=== PATIENT | male | born 1930 | race Caucasian/White ===

== ENCOUNTER 2016-06-16 05:10 | Emergency (ER) | payer MEDICARE, BC ==
[~2016-06-16] VITALS: Ht 180.3 cm; Wt 84.8 kg
[~2016-06-16 05:10] MED LIST: ALFU10TA3 PO; ASPI-482 PO; CALC1TAB PO; CARV6.252 PO; CLOP75TA PO; CRESTOR5 MG PO; DOCU100C5 PO; DOXY100C2 PO; FINA5TAB4 PO; FLUO20CA8 PO; GLUC100018 PO; HYDR-2161 PO; HYDR-2666 PO; LISI2.5T PO; LORA10TA3 PO; MULT-245 PO; NITR0.4T SL; PANT40TA5 PO; RANI150C PO; VIT500LI PO; WARF5TAB PO
[2016-06-16] MEDS ORDERED: DIPHTH,PERTUSS(ACELL),TET TOX 0.5 ML DISP.SYRIN. VAX IM ONE (05:30)
--- NOTE | 2016-06-16 05:57 | RAD ---
PROCEDURE Head and cervical spine CT without contrast. HISTORY Trauma. TECHNIQUE Computed tomographic images of the head and cervical spine were obtained without contrast. One or more of the following individualized dose reduction techniques were utilized for this examination: 1. Automated exposure control; 2. Adjustment of the mA and/or kV according to patient size; 3. Use of iterative reconstruction technique. COMPARISON 05/09/2016 FINDINGS Head: There is no evidence of acute or subacute hemorrhage. There is no mass effect or midline shift. There is no hydrocephalus. There is a stable infarct within the left thalamus. There are extensive areas of hypodensity throughout the cerebral white matter, likely due to chronic small vessel disease. There is focal encephalomalacia cerebellar hemispheres likely due to chronic infarction. There is vertebral and internal carotid artery atherosclerosis. No orbital lesion is seen. There is mild paranasal sinus mucosal thickening. The mastoid air cells are clear. There is ossification at the left vertex, without a clear associated mass to suggest a meningioma. This is stable in appearance. Cervical spine: There is cervical kyphosis. There is slight listhesis at multiple levels. There is degenerative endplate remodeling with disc space narrowing, osteophytosis and vacuum phenomenon at C3 through C7. No displaced fracture is seen. There are few hemangiomas. At C2-C3, there is a disc bulge and endplate remodeling. There is moderate left greater than right facet arthropathy. There is minimal left foraminal stenosis. At C3-C4, there are left greater than right posterior lateral disc osteophyte complexes superimposed on a disc bulge and endplate osteophytosis. There is mild facet arthropathy. There is uncovertebral arthropathy. There is moderate right and severe left foraminal stenosis. There is mild central canal stenosis. At C4-C5, there is a diffuse disc bulge and endplate osteophytosis. There is mild facet arthropathy. There is uncovertebral arthropathy. There is severe bilateral foraminal stenosis. There is moderate to severe central canal stenosis measuring 6.3 mm in anterior-posterior dimension. At C5-C6, there is a disc bulge with endplate osteophytosis. There is moderate facet arthropathy. There is uncovertebral arthropathy. There is moderate right and severe left foraminal stenosis. There is moderate central canal stenosis. At C6-C7, there is a disc bulge and endplate osteophytosis. There is mild right facet arthropathy. There is uncovertebral arthropathy. There is severe bilateral foraminal stenosis. There is moderate central canal stenosis. IMPRESSION 1. No acute intracranial finding or evidence of acute cervical spine trauma. 2. Scattered areas of hypodensity throughout the cerebral white matter, likely due to chronic small vessel disease. 3. 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 4. Multilevel degenerative change within the cervical spine, resulting in significant foraminal and central canal stenosis at the aforementioned levels. 5. 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 The imaging appearance does not favor an ossified meningioma. Electronically signed by: Sandra Dela Cruz (Jun 16, 2016 05:55:13)
--- NOTE | 2016-06-16 06:15 | PHYS DOC ---
Past Medical History Past Medical History: Arthritis, Dementia, Diabetes-Type II, High Cholesterol, Heart Disease, [place], Other Additional Past Medical Histor: ulcerative colitis, [place] 2004 Past Surgical History: Appendectomy, Pacemaker, Tonsillectomy, Other Additional Past Surgical Histo: Cardiac stents x 4, COLOSTOMY Alcohol Use: None Drug Use: None Adult General Chief Complaint Chief Complaint: MECHANICAL FALL HPI HPI 86-year-old male presenting to the emergency Department after sustaining a mechanical fall with head injury including abrasion to his head and abrasion to his left knee. He has mild nonradiating intermittent pain in his head. He denies a pain in the lower extremities. Review of Systems Review of Systems Constitutional: Denies fever or chills Eyes: Denies change in visual acuity, redness, or eye pain [] HENT: Denies nasal congestion or sore throat [] Respiratory: Denies cough or shortness of breath Cardiovascular: No additional information not addressed in HPI [] GI: Denies abdominal pain, nausea, vomiting, bloody stools or diarrhea : Denies dysuria or hematuria [] Musculoskeletal: Denies back pain or joint pain Integument: Denies rash or skin lesions [] Neurologic: Denies focal weakness or sensory changes [] Endocrine: Denies polyuria or polydipsia [] Current Medications Current Medications Current Medications Medications (Trade) Dose Ordered Sig/Helen Start Time Stop Time Status Last Admin Dose Admin Diphtheria/ Tetanus/Acell Pertussis (Boostrix) 0.5 ml ONCE ONCE 06/16/16 05:30 06/16/16 05:31 DC 06/16/16 06:02 0.5 ML Allergies Allergies Allergies Coded Allergies Type Severity Reaction Last Updated Verified Sulfa (Sulfonamide Antibiotics) Allergy Intermediate 10/31/14 Yes mesalamine Allergy Intermediate 05/17/16 Yes bacitracin Adverse Reaction Intermediate Itching 05/17/16 Yes neomycin Adverse Reaction Intermediate Itching 05/17/16 Yes polymyxin B Adverse Reaction Intermediate Itching 05/17/16 Yes Physical Exam Physical Exam Constitutional: Well developed, well nourished, no acute distress, non-toxic appearance. [] HENT: Normocephalic, Abrasion to the head, bilateral external ears normal, oropharynx moist, no oral exudates, nose normal. [] Eyes: PERRLA, EOMI, conjunctiva normal, no discharge. [] Neck: Normal range of motion, no tenderness, supple, no stridor. [] Cardiovascular:Heart rate regular rhythm, no murmur [] Lungs & Thorax: Bilateral breath sounds clear to auscultation [] Abdomen: Bowel sounds normal, soft, no tenderness, no masses, no pulsatile masses. [] Skin: Warm, dry, no erythema, no rash. [] Back: No tenderness, no CVA tenderness. [] Extremities: Abrasion to left lower extremity. Nontender passive range of motion of the left knee. Minimal swelling present. Patient is able to ambulate without difficulty. Otherwise extremities nontender with two second capillary Refill and normal motor sensory function. Neurologic: Alert and oriented X 3, normal motor function, normal sensory function, no focal deficits noted. [] Psychologic: Affect normal, judgement normal, mood normal. [] Current Patient Data Vital Signs Vital Signs Date Time Temp Pulse Resp B/P Pulse Ox O2 Delivery O2 Flow Rate FiO2 06/16/16 07:26 68 18 162/86 95 Room Air 06/16/16 05:10 97.7 97.7 EKG EKG [] Radiology/Procedures Radiology/Procedures [] Course & Med Decision Making Course & Med Decision Making Pertinent Labs and Imaging studies reviewed. (See chart for details) []86-year-old male presented the emergency department today with and embrace into his head and left knee after sustaining a mechanical fall. The remainder of the secondary survey was unremarkable. The patient's left knee was nontender with normal range of motion with a small abrasion. He was able to ambulate on it. Head and neck CT were unremarkable for acute pathology. The patient was then discharged home to follow up with PCP over the next 2-3 days. Dragon Disclaimer Dragon Disclaimer This electronic medical record was generated, in whole or in part, using a voice recognition dictation system. Departure Departure Impression: Primary Impression: Head trauma Disposition: 01 HOME, SELF-CARE Condition: STABLE Referrals: YORDAN SHANKS MD (PCP) Patient Instructions: Head Injury, Adult Additional Instructions: Thank you for allowing us to participate in your care today. Followup with your primary care physician in 3 days if your symptoms do not improve. If you do not have a primary care provider you can ask for a list of our primary care providers. Return to the emergency department you have any new or concerning findings. This should be evaluated by the primary care physician and any necessary consulting services for continued management within a few days after discharge. Return to emergency room if you have any new or concerning symptoms including but not limited to fever, chills, nausea, vomiting, intractable pain, any new rashes, chest pain, shortness of air, uncontrolled bleeding, difficulty breathing, and/or vision loss. BRYANT MARTIN MD Jun 16, 2016 06:15
[2016-06-16 07:26] VITALS: BP 162/86
== END 2016-06-16 09:08 | disposition home or self-care (01) ==
LOC: ER 05:10
DX: S00.81XA Abrasion of other part of head, initial encounter (principal); S80.212A Abrasion, left knee, initial encounter; E11.9 Type 2 diabetes mellitus without complications; E78.00 Pure hypercholesterolemia, unspecified; F03.90 Unspecified dementia, unspecified severity, without behavioral disturbance, psychotic disturbance, mood disturbance, and anxiety; I25.2 Old myocardial infarction; I11.9 Hypertensive heart disease without heart failure; M19.90 Unspecified osteoarthritis, unspecified site; Z88.1 Allergy status to other antibiotic agents; Z88.2 Allergy status to sulfonamides; Z88.8 Allergy status to other drugs, medicaments and biological substances; Z95.0 Presence of cardiac pacemaker; Z90.49 Acquired absence of other specified parts of digestive tract; Z95.5 Presence of coronary angioplasty implant and graft; Z93.3 Colostomy status; W19.XXXA Unspecified fall, initial encounter; Y93.89 Activity, other specified; Y92.89 Other specified places as the place of occurrence of the external cause; Y99.8 Other external cause status
CPT/HCPCS: 70450; 72125; 90471; 90715; 99284-25

== ENCOUNTER 2016-08-04 09:02 | Inpatient (IN) | payer MEDICARE, BC ==
[~2016-08-04] VITALS: Ht 182.9 cm; Wt 86.2 kg
--- NOTE | 2016-08-04 09:48 | RAD ---
Portable chest, 08/04/2016: History: Fall, chest pain Comparison is made to a study from 05/16/2016. There has been a previous median sternotomy. A left-sided transvenous pacemaker remains in place with 2 leads extending into the right heart. The heart is at the upper limits of normal in size. There is calcific plaquing and tortuosity of the thoracic aorta. The pulmonary vascularity is normal. There is minimal linear atelectasis and/or scarring in the lung bases. No pulmonary consolidation is seen. There is no evidence of pleural fluid. IMPRESSION: 1.Cardiomegaly and aortic atherosclerosis. 2. Mild bibasilar linear atelectasis and/or scarring.
[2016-08-04] MEDS: FENTANYL PF 100 MCG/2 ML VIAL. IV PRN ×3 (09:53→12:47)
[2016-08-04 09:56] LABS: BASO # 0.1 x10^3/uL (0.0-0.2); BASO % 1 % (0-3); EOS % 9 % (0-3); HEMATOCRIT 41.6 % (39.0-53.0); LYMPH % 21 % (24-48); MEAN CORPUSCULAR HEMOGLOBIN 33 pg (25-35); MEAN CORPUSCULAR HGB CONC 34 g/dL (31-37); MEAN CORPUSCULAR VOLUME 98 fL (79-100); MONO % 13 % (0-9); NEUT % 57 % (31-73); PLATELET COUNT 228 x10^3/uL (140-400); RED BLOOD COUNT 4.24 x10^6/uL (4.30-5.70); RED CELL DISTRIBUTION WIDTH 14.4 % (11.5-14.5); WHITE BLOOD COUNT 9.5 x10^3/uL (4.0-11.0)
[2016-08-04 10:01] LABS: CALCIUM 9.6 mg/dL (8.5-10.1); CREATININE 1.1 mg/dL (0.7-1.3); GFR 63.8; POTASSIUM 4.7 mmol/L (3.5-5.1)
[2016-08-04 10:06] LABS: ALBUMIN 3.2 g/dL (3.4-5.0); DIRECT BILIRUBIN 0.1 mg/dL (0.0-0.2); TOTAL BILIRUBIN 0.5 mg/dL (0.2-1.0); TOTAL PROTEIN 6.8 g/dL (6.4-8.2)
[2016-08-04 10:13] LABS: INR 1.1 (0.8-1.1); PROTHROMBIN TIME PATIENT 13.1 SEC (11.7-14.0)
--- NOTE | 2016-08-04 10:18 | PHYS DOC ---
Past Medical History Past Medical History: Arthritis, CAD, Dementia, Depression, GERD, High Cholesterol, Heart Disease, [place], Other Additional Past Medical Histor: ulcerative colitis, [place] 2005, BPH, INSOMNIA Past Surgical History: Appendectomy, Pacemaker, Tonsillectomy, Other Additional Past Surgical Histo: Cardiac stents x 4, COLOSTOMY Alcohol Use: None Drug Use: None Adult General Chief Complaint Chief Complaint: ABDOMINAL PAIN HPI HPI Patient is a 86 year old male who presents with right upper quadrant pain and right flank pain from assisted living facility. He has multiple falls recently and has incurred right flank pain and ecchymosis over the past week. Overnight, he has developed right upper quadrant abdominal pain that is intermittent, severe, crampy in nature. States it lasts seconds at a time. Pain is better when laying still. Pain is worse with movement, taking a deep breath, or clearing his throat. He denies fever or chills, nausea or vomiting, dyspnea, cough, palpitations, diaphoresis, orthopnea, diarrhea, dysuria, hematuria. He denies numbness, tingling, weakness, headache, neck pain, vision changes. Review of Systems Review of Systems Constitutional: Denies fever or chills [] Eyes: Denies change in visual acuity, redness, or eye pain [] HENT: Denies nasal congestion or sore throat [] Respiratory: Denies cough or shortness of breath [] Cardiovascular: No additional information not addressed in HPI [] GI: Denies nausea, vomiting, bloody stools or diarrhea [] : Denies dysuria or hematuria [] Musculoskeletal: Denies joint pain [] Integument: Denies rash or skin lesions [] Neurologic: Denies headache, focal weakness or sensory changes [] Endocrine: Denies polyuria or polydipsia [] Current Medications Current Medications Current Medications Medications (Trade) Dose Ordered Sig/Helen Start Time Stop Time Status Last Admin Dose Admin Fentanyl Citrate (Fentanyl 2ml Vial) 25 mcg PRN Q15MIN PRN 08/04/16 09:45 08/04/16 13:46 DC 08/04/16 12:47 25 MCG Info (Do NOT chart on this entry -- for MONITORING) 1 each PRN DAILY PRN 08/04/16 11:15 08/06/16 11:14 Iohexol (Omnipaque 300 Mg/ml) 75 ml 1X ONCE 08/04/16 11:00 08/04/16 11:02 DC 08/04/16 11:03 75 ML Allergies Allergies Allergies Coded Allergies Type Severity Reaction Last Updated Verified Sulfa (Sulfonamide Antibiotics) Allergy Intermediate 10/31/14 Yes mesalamine Allergy Intermediate 05/17/16 Yes pantoprazole Allergy Unknown 08/04/16 Yes bacitracin Adverse Reaction Intermediate Itching 05/17/16 Yes neomycin Adverse Reaction Intermediate Itching 05/17/16 Yes polymyxin B Adverse Reaction Intermediate Itching 05/17/16 Yes Physical Exam Physical Exam Constitutional: Well developed, well nourished, no acute distress, non-toxic appearance. [] HENT: Normocephalic, atraumatic, bilateral external ears normal, oropharynx moist, no oral exudates, nose normal. [] Eyes: PERRLA, EOMI. [] Neck: Normal range of motion, no tenderness, supple. [] Cardiovascular:Heart rate regular rhythm [] Lungs & Thorax: Bilateral breath sounds clear to auscultation [] Abdomen: Bowel sounds normal, soft, moderate right upper quadrant tenderness, no guarding or rebound, no pulsatile masses. [] Skin: Warm, dry, no erythema, no rash. [] Back: No midline spinal or paraspinal tenderness, no CVA tenderness. Has tenderness to right posterior lumbar lateral chest wall with surrounding ecchymosis. No rash otherwise [] Extremities: No tenderness, ROM intact, no edema. [] Neurologic: Alert and oriented X 3, normal motor function, normal sensory function, no focal deficits noted. [] Psychologic: Affect normal, judgement normal, mood normal. [] Current Patient Data Vital Signs Vital Signs Date Time Temp Pulse Resp B/P Pulse Ox O2 Delivery O2 Flow Rate FiO2 08/04/16 11:20 60 22 143/89 94 Room Air 08/04/16 09:18 98.0 98.0 Lab Values Laboratory Tests Test 08/04/16 09:10 08/04/16 10:04 White Blood Count 9.5x10^3/uL (4.0-11.0) Red Blood Count 4.24x10^6/uL (4.30-5.70) L Hemoglobin 14.0g/dL (13.0-17.5) Hematocrit 41.6% (39.0-53.0) Mean Corpuscular Volume 98fL (79-100) Mean Corpuscular Hemoglobin 33pg (25-35) Mean Corpuscular Hemoglobin Concent 34g/dL (31-37) Red Cell Distribution Width 14.4% (11.5-14.5) Platelet Count 228x10^3/uL (140-400) Neutrophils (%) (Auto) 57% (31-73) Lymphocytes (%) (Auto) 21% (24-48) L Monocytes (%) (Auto) 13% (0-9) H Eosinophils (%) (Auto) 9% (0-3) H Basophils (%) (Auto) 1% (0-3) Neutrophils # (Auto) 5.4x10^3uL (1.8-7.7) Lymphocytes # (Auto) 2.0x10^3/uL (1.0-4.8) Monocytes # (Auto) 1.2x10^3/uL (0.0-1.1) H Eosinophils # (Auto) 0.8x10^3/uL (0.0-0.7) H Basophils # (Auto) 0.1x10^3/uL (0.0-0.2) Prothrombin Time 13.1SEC (11.7-14.0) Prothrombin Time INR 1.1 (0.8-1.1) Sodium Level 143mmol/L (136-145) Potassium Level 4.7mmol/L (3.5-5.1) Chloride Level 106mmol/L (98-107) Carbon Dioxide Level 27mmol/L (21-32) Anion Gap 10 (6-14) Blood Urea Nitrogen 16mg/dL (8-26) Creatinine 1.1mg/dL (0.7-1.3) Estimated GFR (Cockcroft-Gault) 63.8 Glucose Level 85mg/dL (70-99) Calcium Level 9.6mg/dL (8.5-10.1) Total Bilirubin 0.5mg/dL (0.2-1.0) Direct Bilirubin 0.1mg/dL (0.0-0.2) Aspartate Amino Transferase (AST) 17U/L (15-37) Alanine Aminotransferase (ALT) 18U/L (16-63) Alkaline Phosphatase 64U/L (46-116) Creatine Kinase 59U/L (39-308) Troponin I Quantitative < 0.017ng/mL (0.000-0.055) Total Protein 6.8g/dL (6.4-8.2) Albumin 3.2g/dL (3.4-5.0) L Lipase 162U/L (73-393) Urine Collection Type Unknown Urine Color Yellow Urine Clarity Clear Urine pH 6.5 Urine Specific [place] 1.025 Urine Protein Negativemg/dL (NEG-TRACE) Urine Glucose (UA) Negativemg/dL (NEG) Urine Ketones (Stick) Negativemg/dL (NEG) Urine Blood Moderate (NEG) Urine Nitrite Negative (NEG) Urine Bilirubin Negative (NEG) Urine Urobilinogen Dipstick 0.2mg/dL (0.2 mg/dL) Urine Leukocyte Esterase Small (NEG) Urine RBC 6-10/HPF (0-2) Urine WBC 5-10/HPF (0-4) Urine Squamous Epithelial Cells Occ/LPF Urine Bacteria 0/HPF (0-FEW) Urine Hyaline Casts Occasional/HPF Urine Mucus Mod/LPF Laboratory Tests 08/04/16 09:10 Laboratory Tests 08/04/16 09:10 EKG EKG EKG as interpreted by me as atrial paced rhythm, rate 60, no ST-T changes, no ectopy Radiology/Procedures Radiology/Procedures Chest xray as interpreted by me with no acute cardiopulmonary disease process CT abdomen and pelvis with IV contrast IMPRESSION: 1. Chronic findings as described above. 2. No acute abdominal or pelvic abnormality is detected. DICTATED and SIGNED BY: LIDIA ALCARAZ MD DATE: 08/04/16 112 Course & Med Decision Making Course & Med Decision Making Pertinent Labs and Imaging studies reviewed. (See chart for details) Workup is unremarkable. Suspect pain and ecchymosis from unseen refracture or chest wall contusion. Still has significant pain with moving. Will admit for pain control and PT/OT evaluation for frequent falls. Discussed case with Dr. Burris, who will admit. Benedicton Disclaimer Benedicton Disclaimer This electronic medical record was generated, in whole or in part, using a voice recognition dictation system. Departure Departure Impression: Primary Impression: Chest pain Additional Impressions: Right upper quadrant abdominal pain Multiple falls Disposition: ADMITTED INPATIENT Condition: STABLE Referrals: LILLY URIBE MD (PCP) Problem Qualifiers Primary Impression: Chest pain Chest pain type: other chest pain Qualified Code: R07.89 - Other chest pain Maria Fernanda SLADE MD Aug 04, 2016 10:18
[2016-08-04 10:27] LABS: BILIRUBIN,URINE NEGATIVE (NEG); GLUCOSE,URINE NEGATIVE (NEG); NITRITE,URINE NEGATIVE (NEG); PH,URINE 6.5; PROTEIN,URINE NEGATIVE (NEG-TRACE); UROBILINOGEN,URINE 0.2 mg/dL (0.2 mg/dL)
[2016-08-04 10:35] LABS: BACTERIA,URINE 0 /HPF (0-FEW); SQUAMOUS EPITHELIAL CELL,UR OCC /LPF
[2016-08-04] MEDS ORDERED: IOHEXOL 300 MG/ML 75 ML VIAL IV ONE (11:00)
[2016-08-04] MEDS ORDERED: CONTRAST GIVEN MC PRN (11:15)
--- NOTE | 2016-08-04 11:35 | RAD ---
CT of the abdomen and pelvis with contrast, 08/04/2016: History: Right-sided pain, dementia, falls Multidetector CT imaging was performed following an IV bolus injection of iodinated contrast material. Comparison is made to a study from 03/31/2013. There is mild streaky atelectasis and/or scarring in the lung bases. The heart is enlarged. Coronary artery calcifications are present. No hepatic abnormality is seen. The gallbladder is unremarkable. The pancreas shows no abnormality. The spleen is of normal size. There is mild bilateral renal cortical scarring. The kidneys show no evidence of obstruction. There is moderate calcific plaquing of the abdominal aorta and its branches without evidence of aneurysm. The prostate gland is moderately enlarged. The colon has been resected with a colostomy or ileostomy in the right lower quadrant. The bowel loops are not dilated. No free air or free air is evident in the abdomen or pelvis. There is moderate multilevel degenerative change in the spine. 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 A mild L3 vertebral compression fracture has progressed since 2012. An acute fracture line is not visible. Severe degenerative changes are present at the right hip. IMPRESSION: 1. Chronic findings as described above. 2. No acute abdominal or pelvic abnormality is detected. PQRS Compliance Statement: One or more of the following individualized dose reduction techniques were utilized for this examination: 1. Automated exposure control 2. Adjustment of the mA and/or kV according to patient size 3. Use of iterative reconstruction technique
--- NOTE | 2016-08-04 13:44 | PDOC1 ---
History and Physical Date of Admission Date of Admission DATE: 08/04/16 TIME: 13:40 Identification/Chief Complaint Chief Complaint falls in [place] Source Source: Caregiver, Chart review, Patient History of Present Illness History of Present Illness 86 y.o male, rather very poor historian, no family at bedside,. Prev records show that he has hx of: (last admit) 1. Chest pain: Echocardiogram shows an ejection fraction of 30%. 38% on MPI 2. CAD: hx CABG 3. Cardiomyopathy known 4. Multiple falls with left cephalic parietal wound, syncopal vs arrhythmias 5. HTN: controlled 6. HLP 7. cognitive decline, w/ also depression, 8. abd pain APparently today, was sent by staff of [facility] of frequent falls. There were initial reports of rib pain but pt denies this to me. CTs can shows no acute finding, Pt cant tell me why he is here and denies falling. But he also cant tell what happened and who called EMS LAbs ok, CT abd ok - chronic changes Past Medical History Cardiovascular: CAD, HTN, Hyperlipidemia GI: GERD Psych: Anxiety Musculoskeletal: Osteoarthritis Renal/: Benign prostatic enlarg. Endocrine: Diabetes Past Surgical History Past Surgical History: Appendectomy, Total knee replacement, Tonsillectomy, Colectomy, Colon Resection Family History Family History: Family History Unknown Social History Smoke: No ALCOHOL: none Drugs: None Current Problem List Problem List Problems Medical Problems: (1) Chest pain Status: Acute (2) Chest wall pain Status: Acute (3) Fall Status: Acute (4) Multiple falls Status: Acute (5) Right upper quadrant abdominal pain Status: Acute Problems: Current Medications Current Medications Current Medications Fentanyl Citrate (Fentanyl 2ml Vial) 25 mcg PRN Q15MIN PRN IV PAIN GREATER THAN 3/10 Last administered on 08/04/16 12:47; Start 08/04/16 at 09:45; Stop at 09:44 Iohexol (Omnipaque 300 Mg/ml) 75 ml 1X ONCE IV Last administered on 08/04/16 11:03; Start 08/04/16 at 11:00; Stop 08/04/16 at 11:02; Status DC Info (Do NOT chart on this entry -- for MONITORING) 1 each PRN DAILY PRN MC SEE COMMENTS; Start 08/04/16 at 11:15; Stop 08/06/16 at 11:14 Active Scripts Active Hydrocodone-Apap 5-325 (Hydrocodone Bit/Acetaminophen) 1 Each Tablet 1 Tab PO PRN Q6HRS PRN Doxycycline Hyclate 100 Mg Capsule 1 Cap PO BID Reported Nitrostat (Nitroglycerin) 0.4 Mg Tab.subl 1 Tab SL UD Aspir 81 (Aspirin) 81 Mg Tablet.dr 1 Tab PO HS Glucosamine (Glucosamine Sulfate 2KCL) 1,000 Mg Tablet 1,000 Mg PO BID Docusate Sodium 100 Mg Capsule 1 Cap PO DAILY Vitamin C 500 Mg/15 Ml Liquid (Vit C/Ascorbate Ca/Ascorb Sod) 500 Mg/15 Ml Liquid 500 Mg PO BID Multi Vitamin Daily (Multivitamin) 1 Each Tablet 1 Each PO Caltrate 600 + D Tablet (Calcium Carbonate/Vitamin D3) 1 Each Tablet 1 Each PO BID Loratadine 10 Mg Tablet 1 Tab PO DAILY Hydrocodone-Apap 10-300 (Hydrocodone Bit/Acetaminophen) 1 Each Tablet 2 Tab PO PRN Q6HRS PRN Fluoxetine Hcl 20 Mg Capsule 1 Cap PO HS Ranitidine Hcl 150 Mg Capsule 1 Cap PO HS Pantoprazole Sodium 40 Mg Tablet.dr 20 Mg PO DAILY Lisinopril 2.5 Mg Tablet 1 Tab PO BID Finasteride 5 Mg Tablet 1 Tab PO DAILY Alfuzosin Hcl 10 Mg Tab.er.24h 1 Tab PO DAILY Crestor (Rosuvastatin Calcium) 5 Mg Tablet 5 Mg PO HS Clopidogrel (Clopidogrel Bisulfate) 75 Mg Tablet 1 Tab PO DAILY Carvedilol 6.25 Mg Tablet 1 Tab PO BID Allergies Allergies: Coded Allergies: Sulfa (Sulfonamide Antibiotics) (Verified Allergy, Intermediate, 10/31/14) mesalamine (Verified Allergy, Intermediate, 05/17/16) pantoprazole (Verified Allergy, Unknown, 08/04/16) bacitracin (Verified Adverse Reaction, Intermediate, Itching, 05/17/16) neomycin (Verified Adverse Reaction, Intermediate, Itching, 05/17/16) polymyxin B (Verified Adverse Reaction, Intermediate, Itching, 05/17/16) ROS Review of System limited, very poor historian Physical Exam General: Cooperative, No acute distress HEENT: Atraumatic, PERRLA, EOMI Lungs: Clear to auscultation Heart: S1S2, RRR, no thrills, no rubs, no murmurs Cardiovascular: S1, S2 Breasts: Normal Abdomen: Normal bowel sounds, Soft, No tenderness, No hepatosplenomegaly, No masses Male Genitals Exam: normal genitalia, normal prostate Rectal Exam: not examined PELVIC: Nml ext genitalia Extremities: No clubbing, No cyanosis, No edema, Normal pulses, No tenderness/ swelling Skin: No rashes, No breakdown, No significant lesion Psych/Mental Status: Mental status NL, Mood NL Vitals Vitals Vital Signs Date Time Temp Pulse Resp B/P Pulse Ox O2 Delivery O2 Flow Rate FiO2 08/04/16 13:19 60 20 158/96 94 Room Air 08/04/16 09:18 98.0 98.0 Labs Labs Laboratory Tests Test 08/04/16 09:10 08/04/16 10:04 White Blood Count 9.5x10^3/uL (4.0-11.0) Red Blood Count 4.24x10^6/uL (4.30-5.70) Hemoglobin 14.0g/dL (13.0-17.5) Hematocrit 41.6% (39.0-53.0) Mean Corpuscular Volume 98fL (79-100) Mean Corpuscular Hemoglobin 33pg (25-35) Mean Corpuscular Hemoglobin Concent 34g/dL (31-37) Red Cell Distribution Width 14.4% (11.5-14.5) Platelet Count 228x10^3/uL (140-400) Neutrophils (%) (Auto) 57% (31-73) Lymphocytes (%) (Auto) 21% (24-48) Monocytes (%) (Auto) 13% (0-9) Eosinophils (%) (Auto) 9% (0-3) Basophils (%) (Auto) 1% (0-3) Neutrophils # (Auto) 5.4x10^3uL (1.8-7.7) Lymphocytes # (Auto) 2.0x10^3/uL (1.0-4.8) Monocytes # (Auto) 1.2x10^3/uL (0.0-1.1) Eosinophils # (Auto) 0.8x10^3/uL (0.0-0.7) Basophils # (Auto) 0.1x10^3/uL (0.0-0.2) Prothrombin Time 13.1SEC (11.7-14.0) Prothromb Time International Ratio 1.1 (0.8-1.1) Sodium Level 143mmol/L (136-145) Potassium Level 4.7mmol/L (3.5-5.1) Chloride Level 106mmol/L (98-107) Carbon Dioxide Level 27mmol/L (21-32) Anion Gap 10 (6-14) Blood Urea Nitrogen 16mg/dL (8-26) Creatinine 1.1mg/dL (0.7-1.3) Estimated GFR (Cockcroft-Gault) 63.8 Glucose Level 85mg/dL (70-99) Calcium Level 9.6mg/dL (8.5-10.1) Total Bilirubin 0.5mg/dL (0.2-1.0) Direct Bilirubin 0.1mg/dL (0.0-0.2) Aspartate Amino Transf (AST/SGOT) 17U/L (15-37) Alanine Aminotransferase (ALT/SGPT) 18U/L (16-63) Alkaline Phosphatase 64U/L (46-116) Creatine Kinase 59U/L (39-308) Troponin I Quantitative < 0.017ng/mL (0.000-0.055) Total Protein 6.8g/dL (6.4-8.2) Albumin 3.2g/dL (3.4-5.0) Lipase 162U/L (73-393) Urine Collection Type Unknown Urine Color Yellow Urine Clarity Clear Urine pH 6.5 Urine Specific [place] 1.025 Urine Protein Negativemg/dL (NEG-TRACE) Urine Glucose (UA) Negativemg/dL (NEG) Urine Ketones (Stick) Negativemg/dL (NEG) Urine Blood Moderate (NEG) Urine Nitrite Negative (NEG) Urine Bilirubin Negative (NEG) Urine Urobilinogen Dipstick 0.2mg/dL (0.2 mg/dL) Urine Leukocyte Esterase Small (NEG) Urine RBC 6-10/HPF (0-2) Urine WBC 5-10/HPF (0-4) Urine Squamous Epithelial Cells Occ/LPF Urine Bacteria 0/HPF (0-FEW) Urine Hyaline Casts Occasional/HPF Urine Mucus Mod/LPF Laboratory Tests Test 08/04/16 09:10 08/04/16 10:04 White Blood Count 9.5x10^3/uL (4.0-11.0) Red Blood Count 4.24x10^6/uL (4.30-5.70) Hemoglobin 14.0g/dL (13.0-17.5) Hematocrit 41.6% (39.0-53.0) Mean Corpuscular Volume 98fL (79-100) Mean Corpuscular Hemoglobin 33pg (25-35) Mean Corpuscular Hemoglobin Concent 34g/dL (31-37) Red Cell Distribution Width 14.4% (11.5-14.5) Platelet Count 228x10^3/uL (140-400) Neutrophils (%) (Auto) 57% (31-73) Lymphocytes (%) (Auto) 21% (24-48) Monocytes (%) (Auto) 13% (0-9) Eosinophils (%) (Auto) 9% (0-3) Basophils (%) (Auto) 1% (0-3) Neutrophils # (Auto) 5.4x10^3uL (1.8-7.7) Lymphocytes # (Auto) 2.0x10^3/uL (1.0-4.8) Monocytes # (Auto) 1.2x10^3/uL (0.0-1.1) Eosinophils # (Auto) 0.8x10^3/uL (0.0-0.7) Basophils # (Auto) 0.1x10^3/uL (0.0-0.2) Prothrombin Time 13.1SEC (11.7-14.0) Prothromb Time International Ratio 1.1 (0.8-1.1) Sodium Level 143mmol/L (136-145) Potassium Level 4.7mmol/L (3.5-5.1) Chloride Level 106mmol/L (98-107) Carbon Dioxide Level 27mmol/L (21-32) Anion Gap 10 (6-14) Blood Urea Nitrogen 16mg/dL (8-26) Creatinine 1.1mg/dL (0.7-1.3) Estimated GFR (Cockcroft-Gault) 63.8 Glucose Level 85mg/dL (70-99) Calcium Level 9.6mg/dL (8.5-10.1) Total Bilirubin 0.5mg/dL (0.2-1.0) Direct Bilirubin 0.1mg/dL (0.0-0.2) Aspartate Amino Transf (AST/SGOT) 17U/L (15-37) Alanine Aminotransferase (ALT/SGPT) 18U/L (16-63) Alkaline Phosphatase 64U/L (46-116) Creatine Kinase 59U/L (39-308) Troponin I Quantitative < 0.017ng/mL (0.000-0.055) Total Protein 6.8g/dL (6.4-8.2) Albumin 3.2g/dL (3.4-5.0) Lipase 162U/L (73-393) Urine Collection Type Unknown Urine Color Yellow Urine Clarity Clear Urine pH 6.5 Urine Specific [place] 1.025 Urine Protein Negativemg/dL (NEG-TRACE) Urine Glucose (UA) Negativemg/dL (NEG) Urine Ketones (Stick) Negativemg/dL (NEG) Urine Blood Moderate (NEG) Urine Nitrite Negative (NEG) Urine Bilirubin Negative (NEG) Urine Urobilinogen Dipstick 0.2mg/dL (0.2 mg/dL) Urine Leukocyte Esterase Small (NEG) Urine RBC 6-10/HPF (0-2) Urine WBC 5-10/HPF (0-4) Urine Squamous Epithelial Cells Occ/LPF Urine Bacteria 0/HPF (0-FEW) Urine Hyaline Casts Occasional/HPF Urine Mucus Mod/LPF VTE Prophylaxis Ordered VTE Prophylaxis Devices: Yes VTE Pharmacological Prophylaxi: Yes Assessment/Plan Assessment/Plan 1. Frequent falls 2. FTT/gen weakness 3. Geriatric 4. MOd PCM 5. Hx CAD: hx CABG with EF 30% 6. Cardiomyopathy 7. HTN: 6. HLP 8. cognitive decline, w/ also depression, PLAn: Supportive meds PT/OT SW if needs SNU (higher level of care - doubt this though) Seen at ER Might need rib xrays pt complains of this with PT dw ER AARON Fleming MD Aug 04, 2016 13:44
[2016-08-04] MEDS ORDERED: MORPHINE SULFATE 2 MG/ML DISP.SYRIN. IV PRN (13:45)
[2016-08-04] MEDS ORDERED: ONDANSETRON PF 4 MG/2 ML VIAL. IV PRN (13:45)
[2016-08-04] MEDS ORDERED: ACETAMINOPHEN 500 MG TABLET PO PRN (13:45)
[2016-08-04] MEDS ORDERED: HYDROCODONE/APAP 5/325MG TABLET. PO PRN (14:00)
--- NOTE | 2016-08-04 14:18 | EKG ---
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
[2016-08-04 15:00] VITALS: BP 148/98
[2016-08-04 15:02] VITALS: BP 148/98
--- NOTE | 2016-08-04 15:49 | ACF ---
Admission Forms Criteria CARDIOLOGY GRG Clinical Indications for Admission to Inpatient Care ( Place 'X' for any and all applicable criteria): Hospital admission is needed for appropriate care of the patient because of ANY ONE of the following (1): [ ] I. Hemodynamic instability as indicated by ALL of the following (1)(2)(3) (4)(5) [ ]a) Vital signs or other findings not as expected for chronic patient condition or baseline [ ]b) Instability indicated by ANY ONE of the following: [ ]i) Hypotension [ ]ii) Symptomatic Tachycardia unresponsive to treatment ( e.g., analgesia, fluids, sedation as indicated) [ ]iii) Inadequate perfusion indicated by ANY ONE of the following: [ ] 1) Lactic acidosis (> 2 mmol/L) [ ] 2) New abnormal capillary refill (> 3 seconds) [ ] 3) Reduced urine output [ ] 4) New altered mental status [ ]iv) Orthostatic vital sign changes unresponsive to treatment (e.g., fluids) [ ]v) IV inotropic or vasopressor medication required to maintain adequate blood pressure or perfusion [ ] II. Severe heart failure as indicated by ANY ONE of the following(17)(18) [ ]a) Respiratory distress [ ]b) Hypotension [ ]c) Anasarca (refractory to outpatient therapy) [ ]d) Cardiac arrhythmias of immediate concern [ ]e) Myocardial ischemia [ ] III. Cardiac arrhythmias or findings of immediate concern indicated by ANY ONE of the following (19)(20): [ ] a) Heart rhythms that are inherently dangerous or unstable indicated by ANY ONE of the following (21)(22)(23): [ ] i) Resuscitated ventricular fibrillation or cardiac arrest [ ] ii) Ventricular escape rhythm [ ] iii) Sustained ventricular tachycardia (30 seconds or more of ventricular rhythm at greater than 100 beats per minute) [ ] iv) Nonsustained ventricular tachycardia and ANY ONE of the following: [ ] 1) Suspected cardiac ischemia as cause or consequence of ventricular tachycardia [ ] 2) In setting of acute myocarditis [ ] b) Unstable cardiac conduction defects indicated by ANY ONE of the following(23)(24)(25) [ ] i) Type II second-degree atrioventricular block [ ]ii) Third-degree atrioventricular block [ ]iii) New-onset left bundle branch block with suspected myocardial ischemia [ ]c) Any heart rhythm and ANY ONE of the following (21)(22)(26)(27) (28) [ ] i) Continuous long-term ECG monitoring needed (e.g., initiation of drug requiring monitoring for more than 24 hours) [ ] ii) Patient has automatic implanted cardioverter defibrillator that is repeatedly firing, malfunctioning, or in need of immediate adjustment of settings beyond the scope of ambulatory or observation care [ ]d) Heart rhythms of concern due to ANY ONE of the following: [ ] i) Hypotension [ ] ii) Respiratory distress [ ] iii) Association with other significant symptoms (e.g., bradycardia with syncope or ongoing dizziness, supraventricular tachycardia with chest pain (14)(15)(17) [ ] IV. Monitoring for cardiac contusion beyond the scope of observation care needed [A](30)(31)(32) [ ] V. Surgical or device complication (e.g., valve replacement complication , pacemaker dysfunction) (35)(41)(44)(45)(46) [ ] . Inpatient palliative care needed. [B](49) Also use Inpatient Palliative Care Criteria [ ] VII. Nonbacterial thrombotic (marantic) endocarditis (36)(43)(47)(48) [X] VIII. Cardiology condition, symptom, or finding for which emergency and observation care has failed or are not considered appropriate. [ ] IX. Acute valvular disease requiring inpatient as indicated by ANY ONE of the following (41) [ ]a) Acute valvular regurgitation (42) [ ]b) Noninfectious valvulitis (43) [ ]c) Obstructive valve thrombosis [ ]d) Paravalvular leak [ ]e) Other significant valvular disorder remaining after emergency or observation level of care (as appropriate) [ ]X. Pericardial disease requiring inpatient treatment as indicated by ANY ONE of the following (33)(34)(35)(36)(37) [ ]a) Suspected tamponade (38)(39)(40) [ ]b) Hemopericardium [ ]c) Other significant pericardial disorder remaining after emergency or observation level of care (as appropriate) [ ] XI. Cardiac ischemia beyond scope of emergency and observation care. [ ] XII. Hypertension requiring inpatient treatment as indicated by ANY ONE of the following (6)(7)(8) [ ]a) SBP greater than 220 mm Hg or DBP greater than 120 mmHg despite treatment [ ]b) SBP greater than 140 mm Hg or DBP greater than 100 mm Hg with evidence of acute end organ damage as indicated by ANY ONE of the following [ ] i) Encephalopathy [ ] ii) Acute renal failure as indicated by new onset of ANY ONE of the following (9)(10)(11)(12)(13) [ ]1) 3-fold rise in serum creatinine from baseline [ ]2) Serum creatinine greater than 4 mg/dL ( 354 micromoles/L) with acute rise greater than 0.5 mg/dL (44.2 micromoles/L) [ ]3) Reduction of more than 75% in estimated glomerular filtration rate from baseline [ ]4) Estimated glomerular filtration rate less than 35 mL/min/1.73m2 (0.59 mL/sec/1.73m2) in child up to 18 years of age [ ]5) Cessation of urine output indicated by ALL of the following [ ]A. Adequate volume status [ ]B. Inadequate urine output as indicated by ANY ONE of the following [ ]a. Urine output less than 0.3 mL/kg/hr for 24 hours [ ]b. Anuria (urine output less than 0.1 mL/kg/hr) for 12 hours [ ] iii) Aortic dissection [ ] iv) Myocardial Ischemia [ ] v) Left ventricular heart failure [ ]vi) Retinal Hemorrhage [ ]vii) Other significant finding [ ]c) Hypertension in child requiring inpatient treatment as indicated by ALL of the following(14)(15)(16) [ ] i) Outpatient treatment not effective, not available, or not appropriate [ ]ii) SBP or DBP greater than 95th percentile for age [ ]iii) Evidence of acute end organ damage as indicated by ANY ONE of the following [ ]1) Altered mental status [ ]2) Acute renal failure as indicated by new onset of ANY ONE of the following(9)(10)(11)(12)(13) [ ]A. 3-fold rise in serum creatinine from baseline [ ]B. Serum creatinine greater than 4 mg/dL (354 micromoles/L) with acute rise greater than 0.5 mg/dL (44.2 micromoles/L) [ ]C. Reduction of more than 75% in estimated glomerular filtration rate from baseline [ ]D. Estimated glomerular filtration rate less than 35 mL/min/1.73m2 (0.59 mL/sec/1.73m2) in child up to 18 years of age [ ]E. Cessation of urine output indicated by ALL of the following [ ]a. Adequate volume status [ ]b. Inadequate urine output as indicated by ANY ONE of the following [ ]i) Urine output less than 0.3 mL/kg/hr for 24 hours [ ]ii) Anuria ( urine output less than 0.1 mL/kg/hr) for 12 hours [ ]3) Severe headache [ ]4) Visual disturbance [ ]5) Retinal hemorrhage [ ]6) Other significant finding [ ]XIII. Complications of transplanted heart indicated by ANY ONE of the following(61): [ ]a) Acute graft rejection requiring inpatient management (eg, intravenous immunosuppression)(62)(63) [ ]b) Acute graft heart failure indicated by ANY ONE of the following(64): [ ]i) Hemodynamic instability [ ]ii) Cardiac arrhythmias of immediate concern [ ]iii) Pulmonary edema that is very severe (eg, mechanical ventilation needed, imminent or likely, need for 100% oxygen to keep oxygen saturation above 90%) [ ]iv) Pulmonary edema that is persistent as indicated by ALL of the following: [ ]1) New need for oxygen therapy to keep oxygen saturation above 90% (or increased FiO2 need from baseline) [ ]2) Has not improved sufficiently with emergency department or observation care IV diuretics or other heart failure treatments[E] [ ]v) Altered mental status that is severe or persistent [ ]vi) Increased creatinine (new on laboratory test) with reduction of more than 50% in estimated glomerular filtration rate from baseline [ ]vii) Progressively (ongoing) rising creatinine (known from past laboratory test) with reduction of more than 25% in estimated glomerular filtration rate from baseline [ ]viii) Acute renal failure [ ]ix) Acute peripheral ischemia (eg, examination shows pulseless, cool, mottled, or cyanotic extremity) [ ]x) Pulmonary artery catheter monitoring needed [ ]xi) Other sign or symptom of heart failure requiring inpatient treatment (ie, too severe or not responsive to outpatient and observation care treatment) [ ]c) Infection requiring inpatient management (eg, Hemodynamic instability, need for intravenous antimicrobial treatment)(66)(67)(68)(69)(70) [ ]d) Cardiac allograft vasculopathy requiring inpatient management ( eg evidence of cardiac ischemia)(71) [ ]e) Other complication of transplanted heart (eg, stroke, severe pulmonary hypertension, severe valvular dysfunction) requiring inpatient management(72) The original [facility] content created by [facility] has been revised. The portions of the content which have been revised are identified through the use of italic text or in bold, and [facility] has neither reviewed nor approved the modified material. All other unmodified content is copyright [facility]. Please see references footnoted in the original [facility] edition 2016 Admission Criteria Met?: Yes GARLAND NICHOLSON Aug 04, 2016 15:49
[2016-08-04] MEDS: CLOPIDOGREL BISULFATE 75 MG TABLET PO SCH (16:50)
[2016-08-04] MEDS: DOCUSATE SODIUM 100 MG CAPSULE PO SCH (16:50)
[2016-08-04] MEDS: FINASTERIDE 5 MG TABLET PO SCH (16:50)
[2016-08-04] MEDS: CETIRIZINE HCL 10 MG TABLET PO SCH (16:51)
[2016-08-04] MEDS: CARVEDILOL 6.25 MG TABLET PO SCH (16:51)
[2016-08-04] MEDS: CALCIUM CARB/VIT D3 500/200 TABLET PO SCH (16:51)
[2016-08-04] MEDS: TAMSULOSIN 0.4 MG CAP.ER.24H. PO SCH (16:52)
[2016-08-04] MEDS ORDERED: MELA5TAB PO (18:04)
[2016-08-04] MEDS ORDERED: GABA-585 PO (18:04)
[2016-08-04 19:00] VITALS: BP 123/87
[2016-08-04] MEDS: ASPIRIN ENTERIC COATED 81 MG TABLET.DR. PO SCH (20:35)
[2016-08-04] MEDS: LISINOPRIL 2.5 MG TABLET PO SCH (20:35)
[2016-08-04] MEDS: FAMOTIDINE 20 MG TABLET. PO SCH (20:35)
[2016-08-04] MEDS: ATORVASTATIN CALCIUM 20 MG TABLET PO SCH (20:35)
[2016-08-04] MEDS: FLUOXETINE HCL 20 MG CAPSULE PO SCH (20:35)
[2016-08-04] MEDS: ASCORBIC ACID 500 MG TABLET PO SCH (20:35)
[2016-08-04] MEDS ORDERED: NON FORMULARY ITEM (Glucosamine Sulfate 2KCL (Glucosamine) 1,000 MG) PO SCH (21:00)
[2016-08-04 23:15] VITALS: BP 132/85
[2016-08-05 03:15] VITALS: BP 126/88
[2016-08-05] MEDS: HYDROCODONE/APAP 5/325MG TABLET. PO PRN (06:20)
[2016-08-05] MEDS: PANTOPRAZOLE 40 MG TABLET. PO SCH (06:20)
[2016-08-05 07:00] VITALS: BP 131/81
[2016-08-05] MEDS: CALCIUM CARB/VIT D3 500/200 TABLET PO SCH ×2 (09:16→17:20)
[2016-08-05] MEDS: LISINOPRIL 2.5 MG TABLET PO SCH ×2 (09:16→20:23)
[2016-08-05] MEDS: CLOPIDOGREL BISULFATE 75 MG TABLET PO SCH (09:17)
[2016-08-05] MEDS: ASCORBIC ACID 500 MG TABLET PO SCH ×2 (09:17→20:23)
[2016-08-05] MEDS: FINASTERIDE 5 MG TABLET PO SCH (09:17)
[2016-08-05] MEDS: CETIRIZINE HCL 10 MG TABLET PO SCH (09:17)
[2016-08-05] MEDS: TAMSULOSIN 0.4 MG CAP.ER.24H. PO SCH (09:17)
[2016-08-05] MEDS: DOCUSATE SODIUM 100 MG CAPSULE PO SCH (09:18)
[2016-08-05] MEDS: CARVEDILOL 6.25 MG TABLET PO SCH ×2 (09:18→17:21)
[2016-08-05] MEDS: HYDROCODONE/APAP 10/325 TABLET. PO PRN ×2 (10:43→17:21)
[2016-08-05 11:00] VITALS: BP 94/64
--- NOTE | 2016-08-05 14:16 | PDOC ---
PROGRESS NOTES Chief Complaint Chief Complaint 1. Frequent falls 2. FTT/gen weakness 3. Geriatric 4. MOd PCM 5. Hx CAD: hx CABG with EF 30% 6. Cardiomyopathy 7. HTN: 6. HLP 8. cognitive decline, w/ also depression, 9. PAIN AT COLOSTOMY SITE History of Present Illness History of Present Illness MInimal history, poor historian but hE is consistent in telling me and pointing at his colostomy site - saying he is sore there. CTs can neg at ER level COlostomy has significant soft stools in it LAbs ok WIll go back to his current [place] residence PLan: Involve GI If no further eval or intervention, dc trevor to his [place] Vitals Vitals Vital Signs Date Time Temp Pulse Resp B/P Pulse Ox O2 Delivery O2 Flow Rate FiO2 08/05/16 11:43 18 95 Room Air 08/05/16 11:00 98.1 64 94/64 98.1 Physical Exam General: Cooperative, No acute distress Lungs: Clear Abdomen: Normal bowel sounds, Soft, No tenderness, No hepatosplenomegaly, No masses Extremities: No clubbing, No cyanosis, No edema, Normal pulses, No tenderness/ swelling Skin: No rashes, No breakdown, No significant lesion Labs LABS Laboratory Tests Test 08/04/16 17:20 Nasal Screen MRSA (PCR) Negative (Negative) Review of Systems Review of Systems limited -dementia Assessment and Plan Assessmemt and Plan Problems Medical Problems: (1) Chest pain Status: Acute (2) Chest wall pain Status: Acute (3) Fall Status: Acute (4) Multiple falls Status: Acute (5) Right upper quadrant abdominal pain Status: Acute Problems: Comment Review of Relevant I have reviewed the following items flaco (where applicable) has been applied. Labs Laboratory Tests Test 08/04/16 09:10 08/04/16 10:04 08/04/16 17:20 White Blood Count 9.5x10^3/uL (4.0-11.0) Red Blood Count 4.24x10^6/uL (4.30-5.70) Hemoglobin 14.0g/dL (13.0-17.5) Hematocrit 41.6% (39.0-53.0) Mean Corpuscular Volume 98fL (79-100) Mean Corpuscular Hemoglobin 33pg (25-35) Mean Corpuscular Hemoglobin Concent 34g/dL (31-37) Red Cell Distribution Width 14.4% (11.5-14.5) Platelet Count 228x10^3/uL (140-400) Neutrophils (%) (Auto) 57% (31-73) Lymphocytes (%) (Auto) 21% (24-48) Monocytes (%) (Auto) 13% (0-9) Eosinophils (%) (Auto) 9% (0-3) Basophils (%) (Auto) 1% (0-3) Neutrophils # (Auto) 5.4x10^3uL (1.8-7.7) Lymphocytes # (Auto) 2.0x10^3/uL (1.0-4.8) Monocytes # (Auto) 1.2x10^3/uL (0.0-1.1) Eosinophils # (Auto) 0.8x10^3/uL (0.0-0.7) Basophils # (Auto) 0.1x10^3/uL (0.0-0.2) Prothrombin Time 13.1SEC (11.7-14.0) Prothromb Time International Ratio 1.1 (0.8-1.1) Sodium Level 143mmol/L (136-145) Potassium Level 4.7mmol/L (3.5-5.1) Chloride Level 106mmol/L (98-107) Carbon Dioxide Level 27mmol/L (21-32) Anion Gap 10 (6-14) Blood Urea Nitrogen 16mg/dL (8-26) Creatinine 1.1mg/dL (0.7-1.3) Estimated GFR (Cockcroft-Gault) 63.8 Glucose Level 85mg/dL (70-99) Calcium Level 9.6mg/dL (8.5-10.1) Total Bilirubin 0.5mg/dL (0.2-1.0) Direct Bilirubin 0.1mg/dL (0.0-0.2) Aspartate Amino Transf (AST/SGOT) 17U/L (15-37) Alanine Aminotransferase (ALT/SGPT) 18U/L (16-63) Alkaline Phosphatase 64U/L (46-116) Creatine Kinase 59U/L (39-308) Troponin I Quantitative < 0.017ng/mL (0.000-0.055) Total Protein 6.8g/dL (6.4-8.2) Albumin 3.2g/dL (3.4-5.0) Lipase 162U/L (73-393) Urine Collection Type Unknown Urine Color Yellow Urine Clarity Clear Urine pH 6.5 Urine Specific [place] 1.025 Urine Protein Negativemg/dL (NEG-TRACE) Urine Glucose (UA) Negativemg/dL (NEG) Urine Ketones (Stick) Negativemg/dL (NEG) Urine Blood Moderate (NEG) Urine Nitrite Negative (NEG) Urine Bilirubin Negative (NEG) Urine Urobilinogen Dipstick 0.2mg/dL (0.2 mg/dL) Urine Leukocyte Esterase Small (NEG) Urine RBC 6-10/HPF (0-2) Urine WBC 5-10/HPF (0-4) Urine Squamous Epithelial Cells Occ/LPF Urine Bacteria 0/HPF (0-FEW) Urine Hyaline Casts Occasional/HPF Urine Mucus Mod/LPF Nasal Screen MRSA (PCR) Negative (Negative) Laboratory Tests Test 08/04/16 17:20 Nasal Screen MRSA (PCR) Negative (Negative) Medications Current Medications Fentanyl Citrate (Fentanyl 2ml Vial) 25 mcg PRN Q15MIN PRN IV PAIN GREATER THAN 3/10 Last administered on 08/04/16 12:47; Start 08/04/16 at 09:45; Stop at 13:46; Status DC Iohexol (Omnipaque 300 Mg/ml) 75 ml 1X ONCE IV Last administered on 08/04/16 11:03; Start 08/04/16 at 11:00; Stop 08/04/16 at 11:02; Status DC Info (Do NOT chart on this entry -- for MONITORING) 1 each PRN DAILY PRN MC SEE COMMENTS; Start 08/04/16 at 11:15; Stop 08/06/16 at 11:14 Ondansetron HCl (Zofran) 4 mg PRN Q6HRS PRN IV NAUSEA/VOMITING; Start 08/04/16 at 13:45 Acetaminophen (Tylenol) 500 mg PRN Q6HRS PRN PO MILD PAIN / TEMP Last administered on 08/04/16 17:06; Start 08/04/16 at 13:45 Acetaminophen/ Hydrocodone Bitart (Lortab 5/325) 1 tab PRN Q4HRS PRN PO PAIN Last administered on 08/05/16 06:20; Start 08/04/16 at 13:45 Morphine Sulfate 1 mg PRN Q2HR PRN IV PAIN; Start 08/04/16 at 13:45 Aspirin (Ecotrin) 81 mg HS PO Last administered on 08/04/16 20:35; Start 08/04 at 21:00 Carvedilol (Coreg) 6.25 mg BIDWMEALS PO Last administered on 08/05/16 09:18; Start 08/04/16 at 17:00 Clopidogrel Bisulfate (Plavix) 75 mg DAILY PO Last administered on 08/05/16 09 :17; Start 08/04/16 at 14:00 Docusate Sodium (Colace) 100 mg DAILY PO Last administered on 08/05/16 09:18; Start 08/04/16 at 14:00 Finasteride (Proscar) 5 mg DAILY PO Last administered on 08/05/16 09:17; Start 08/04/16 at 14:00 Fluoxetine HCl (Prozac) 20 mg HS PO Last administered on 08/04/16 20:35; Start 08/04/16 at 21:00 Acetaminophen/ Hydrocodone Bitart (Lortab 5/325) 1 tab PRN Q6HRS PRN PO PAIN; Start 08/04/16 at 14:00 Lisinopril (Prinivil) 2.5 mg BID PO Last administered on 08/05/16 09:16; Start 08/04/16 at 21:00 Ascorbic Acid (Vitamin C) 500 mg BID PO Last administered on 08/05/16 09:17; Start 08/04/16 at 21:00 Tamsulosin HCl (Flomax) 0.4 mg DAILY PO Last administered on 08/05/16 09:17; Start 08/04/16 at 14:00 Calcium/Vitamin D (Oscal D 500mg/ 200uts) 1 tab BIDWMEALS PO Last administered on 08/05/16 09:16; Start 08/04/16 at 17:00 Non-Formulary Medication 1,000 mg BID PO ; Start 08/04/16 at 21:00; Stop at 21:00; Status DC Acetaminophen/ Hydrocodone Bitart (Lortab 10/325) 2 tab PRN Q6HRS PRN PO MODERATE TO SEVERE PAIN Last administered on 08/05/16 10:43; Start 08/04/16 at 15:00 Cetirizine HCl (Zyrtec) 10 mg DAILY PO Last administered on 08/05/16 09:17; Start 08/04/16 at 15:00 Famotidine (Pepcid) 20 mg QHS PO Last administered on 08/04/16 20:35; Start at 21:00 Atorvastatin Calcium (Lipitor) 20 mg QHS PO Last administered on 08/04/16 20: 35; Start 08/04/16 at 21:00 Pantoprazole Sodium (Protonix) 40 mg DAILYAC PO Last administered on 08/05/16 06:20; Start 08/05/16 at 07:30 Active Scripts Active Hydrocodone-Apap 5-325 (Hydrocodone Bit/Acetaminophen) 1 Each Tablet 1 Tab PO PRN Q6HRS PRN Reported Melatonin 5 Mg Tablet 5 Mg PO PRN QHS PRN Gabapentin 100 Mg Capsule 200 Mg PO QHS Nitrostat (Nitroglycerin) 0.4 Mg Tab.subl 1 Tab SL UD Aspir 81 (Aspirin) 81 Mg Tablet.dr 1 Tab PO HS Glucosamine (Glucosamine Sulfate 2KCL) 1,000 Mg Tablet 1,000 Mg PO BID Docusate Sodium 100 Mg Capsule 1 Cap PO DAILY Vitamin C 500 Mg/15 Ml Liquid (Vit C/Ascorbate Ca/Ascorb Sod) 500 Mg/15 Ml Liquid 500 Mg PO BID Multi Vitamin Daily (Multivitamin) 1 Each Tablet 1 Each PO Caltrate 600 + D Tablet (Calcium Carbonate/Vitamin D3) 1 Each Tablet 1 Each PO BID Loratadine 10 Mg Tablet 1 Tab PO DAILY Hydrocodone-Apap 10-300 (Hydrocodone Bit/Acetaminophen) 1 Each Tablet 2 Tab PO PRN Q6HRS PRN Fluoxetine Hcl 20 Mg Capsule 1 Cap PO HS Ranitidine Hcl 150 Mg Capsule 1 Cap PO HS Pantoprazole Sodium 40 Mg Tablet.dr 20 Mg PO DAILY Lisinopril 2.5 Mg Tablet 1 Tab PO BID Finasteride 5 Mg Tablet 1 Tab PO DAILY Alfuzosin Hcl 10 Mg Tab.er.24h 1 Tab PO DAILY Crestor (Rosuvastatin Calcium) 5 Mg Tablet 5 Mg PO HS Clopidogrel (Clopidogrel Bisulfate) 75 Mg Tablet 1 Tab PO DAILY Carvedilol 6.25 Mg Tablet 1 Tab PO BID Vitals/I & O Vital Sign - Last 24 Hours 08/04/16 08/04/16 08/04/16 08/04/16 15:00 15:02 16:51 17:21 Temp 98.3 98.3 98.3 98.3 Pulse 60 60 60 Resp 18 18 B/P 148/98 148/98 148/98 Pulse Ox 94 94 O2 Delivery Room Air Room Air Room Air 08/04/16 08/04/16 08/04/16 08/04/16 19:00 20:00 20:35 23:15 Temp 97.5 97.5 97.5 97.5 Pulse 60 60 60 Resp 18 18 B/P 123/87 148/98 132/85 Pulse Ox 94 94 O2 Delivery Room Air Room Air Room Air 08/05/16 08/05/16 08/05/16 08/05/16 03:15 07:00 07:43 08:00 Temp 97.5 98.2 97.5 98.2 Pulse 60 61 Resp 18 18 18 B/P 126/88 131/81 Pulse Ox 92 93 92 O2 Delivery Room Air Room Air Room Air Room Air 08/05/16 08/05/16 08/05/16 08/05/16 09:16 09:18 10:43 11:00 Temp 98.1 98.1 Pulse 61 61 64 Resp 18 18 B/P 131/81 131/81 94/64 Pulse Ox 92 95 O2 Delivery Room Air Room Air 08/05/16 11:43 Resp 18 Pulse Ox 95 O2 Delivery Room Air Intake and Output 08/04/16 08/04/16 08/05/16 15:00 23:00 07:00 Intake Total 200 ml 200 ml Output Total 275 ml 200 ml Balance -75 ml 0 ml AARON ACOSTA MD Aug 05, 2016 14:16
[2016-08-05 15:00] VITALS: BP 131/90
--- NOTE | 2016-08-05 15:09 | PDOC2 ---
GI CONSULT Reason For Consult: Pain at ostomy site HPI: HPI: 86 y/o male. History mostly from office records, staff, chart. Pt is difficult historian, h/o dementia. Evaluated in ER yesterday after falls at assisted living facility. ER note indicates some RUQ and right flank pain. Today has c/o pain around ostomy site w/ movement, hence GI consult. PMH is significant for ulcerative colitis w/ last colonoscopy showing pancolitis in 2005. Med list does not indicate ongoing treatment for this. Chart lists h/o GERD w/ home med list including PPI and H2 iker; office records show previous EGD (1999) w/ gastritis, mild duodenitis, and gastric angiodysplastic lesion. Additionally has exploratory laparotomy for perforated sigmoid colon possibly due to diverticulitis w/ sigmoid resection and ostomy ( 2006 w/ Dr. Wray). 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 Per RN, ostomy bag has been emptied twice today, contents of which are liquid brown stool. His son told her that a few years ago he had a "blockage" and is concerned for this now. He ate mashed potatoes and gravy for lunch. No vomiting. No bleeding. PMH: PMH: from chart - CAD, HTN, HLD, ulcerative colitis, adenomatous colon polyp, GERD, anxiety, dementia, OA, JAI, bronchitis, allergic rhinitis, BPH, DM, appendectomy , right total knee replacement, tonsillectomy, sigmoid colon resection w/ ostomy for diverticulitis (2006, Dr. Wray), CABG, AICD placement, vasectomy, uvulectomy, bone graft FH: Family History: Hypertension, Other (pancreatitis - father) Social History: Smoke: No ALCOHOL: none Drugs: None ROS: Difficult w/ dementia. GEN: Denies fevers, chills, sweats HEENT: Denies sore throat CV: Denies chest pain RESP: Denies shortness of air GI: Per HPI : Denies dysuriai NEURO: Denies dizziness MSK: Denies weakness VItals: Vitals: Vital Signs Date Time Temp Pulse Resp B/P Pulse Ox O2 Delivery O2 Flow Rate FiO2 08/05/16 11:43 18 95 Room Air 08/05/16 11:00 98.1 64 94/64 98.1 Labs: Labs: Laboratory Tests Test 08/04/16 17:20 Nasal Screen MRSA (PCR) Negative (Negative) Allergies: Coded Allergies: Sulfa (Sulfonamide Antibiotics) (Verified Allergy, Intermediate, 10/31/14) mesalamine (Verified Allergy, Intermediate, 05/17/16) bacitracin (Verified Adverse Reaction, Intermediate, Itching, 05/17/16) neomycin (Verified Adverse Reaction, Intermediate, Itching, 05/17/16) polymyxin B (Verified Adverse Reaction, Intermediate, Itching, 05/17/16) Medications: Current Medications Medications (Trade) Dose Ordered Sig/Helen Route PRN Reason Start Time Stop Time Status Last Admin Dose Admin Aspirin (Ecotrin) 81 mg HS PO 08/04/16 21:00 08/04/16 20:35 Carvedilol (Coreg) 6.25 mg BIDWMEALS PO 08/04/16 17:00 08/05/16 09:18 Fluoxetine HCl (Prozac) 20 mg HS PO 08/04/16 21:00 08/04/16 20:35 Lisinopril (Prinivil) 2.5 mg BID PO 08/04/16 21:00 08/05/16 09:16 Ascorbic Acid (Vitamin C) 500 mg BID PO 08/04/16 21:00 08/05/16 09:17 Calcium/Vitamin D (Oscal D 500mg/ 200uts) 1 tab BIDWMEALS PO 08/04/16 17:00 08/05/16 09:16 Acetaminophen/ Hydrocodone Bitart (Lortab 10/325) 2 tab PRN Q6HRS PRN PO MODERATE TO SEVERE PAIN 08/04/16 15:00 08/05/16 10:43 Cetirizine HCl (Zyrtec) 10 mg DAILY PO 08/04/16 15:00 08/05/16 09:17 Famotidine (Pepcid) 20 mg QHS PO 08/04/16 21:00 08/04/16 20:35 Atorvastatin Calcium (Lipitor) 20 mg QHS PO 08/04/16 21:00 08/04/16 20:35 Pantoprazole Sodium (Protonix) 40 mg DAILYAC PO 08/05/16 07:30 08/05/16 06:20 Imaging: Imaging: CT A/P w/ IV contrast 08/04/16 There is mild streaky atelectasis and/or scarring in the lung bases. The heart is enlarged. Coronary artery calcifications are present. No hepatic abnormality is seen. The gallbladder is unremarkable. The pancreas shows no abnormality. The spleen is of normal size. There is mild bilateral renal cortical scarring. The kidneys show no evidence of obstruction. There is moderate calcific plaquing of the abdominal aorta and its branches without evidence of aneurysm. The prostate gland is moderately enlarged. The colon has been resected with a colostomy or ileostomy in the right lower quadrant. The bowel loops are not dilated. No free air or free air is evident in the abdomen or pelvis. There is moderate multilevel degenerative change in the spine. 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 A mild L3 vertebral compression fracture has progressed since 2012. An acute fracture line is not visible. Severe degenerative changes are present at the right hip. IMPRESSION: 1. Chronic findings as described above. 2. No acute abdominal or pelvic abnormality is detected. CXR IMPRESSION: 1.Cardiomegaly and aortic atherosclerosis. 2. Mild bibasilar linear atelectasis and/or scarring. PE: GEN: NAD, sitting up in bed HEENT: Atraumatic, PERRL LUNGS: clear anteriorly HEART: S1S2 ABD: BS+, ostomy RLQ w/ liquid brown stool, seems non-tender surrounding site, perhaps some tenderness RUQ, right ribs EXTREMITY: No edema SKIN: No rashes, no jaundice NEURO/PSYCH: confused A/P: A/P: S/p sigmoid resection w/ ostomy for perforation, then s/p colectomy for long h/ o ulcerative colitis Falls ?pain around ostomy -CT as above -ostomy functioning per staff -h/o "blockage" per son H/o GERD -on PPI Dementia -- Will review w/ Dr. Silva. EDIS FRASER Aug 05, 2016 15:09
[2016-08-05 19:10] VITALS: BP 92/68
[2016-08-05] MEDS: ATORVASTATIN CALCIUM 20 MG TABLET PO SCH (20:22)
[2016-08-05] MEDS: FAMOTIDINE 20 MG TABLET. PO SCH (20:22)
[2016-08-05] MEDS: ASPIRIN ENTERIC COATED 81 MG TABLET.DR. PO SCH (20:22)
[2016-08-05] MEDS: FLUOXETINE HCL 20 MG CAPSULE PO SCH (20:23)
[2016-08-05 23:10] VITALS: BP 126/84
[2016-08-06] MEDS: HYDROCODONE/APAP 10/325 TABLET. PO PRN (01:39)
[2016-08-06 03:15] VITALS: BP 121/81
[2016-08-06] MEDS: HYDROCODONE/APAP 5/325MG TABLET. PO PRN (06:05)
[2016-08-06] MEDS: PANTOPRAZOLE 40 MG TABLET. PO SCH (06:05)
[2016-08-06 07:00] VITALS: BP 122/81
[2016-08-06] MEDS: CETIRIZINE HCL 10 MG TABLET PO SCH (09:02)
[2016-08-06] MEDS: CARVEDILOL 6.25 MG TABLET PO SCH ×2 (09:02→17:48)
[2016-08-06] MEDS: TAMSULOSIN 0.4 MG CAP.ER.24H. PO SCH (09:02)
[2016-08-06] MEDS: DOCUSATE SODIUM 100 MG CAPSULE PO SCH (09:02)
[2016-08-06] MEDS: LISINOPRIL 2.5 MG TABLET PO SCH (09:02)
[2016-08-06] MEDS: ASCORBIC ACID 500 MG TABLET PO SCH (09:02)
[2016-08-06] MEDS: CLOPIDOGREL BISULFATE 75 MG TABLET PO SCH (09:02)
[2016-08-06] MEDS: FINASTERIDE 5 MG TABLET PO SCH (09:03)
[2016-08-06] MEDS: CALCIUM CARB/VIT D3 500/200 TABLET PO SCH ×2 (09:03→17:47)
[2016-08-06 11:00] VITALS: BP 126/81
--- NOTE | 2016-08-06 11:01 | PDOC ---
G I PROGRESS NOTE Subjective Asleep, not awakened. Objective No reports of any GI problems. Physical Exam No PE. Review of Relevant I have reviewed the following items flaco (where applicable) has been applied. Labs Laboratory Tests Test 08/04/16 17:20 Nasal Screen MRSA (PCR) Negative (Negative) Microbiology 08/04/16 Urine Culture - Final, Complete 08/04/16 Urine Culture Result 1 (JANIS) - Final, Complete Medications Current Medications Fentanyl Citrate (Fentanyl 2ml Vial) 25 mcg PRN Q15MIN PRN IV PAIN GREATER THAN 3/10 Last administered on 08/04/16 12:47; Start 08/04/16 at 09:45; Stop at 13:46; Status DC Iohexol (Omnipaque 300 Mg/ml) 75 ml 1X ONCE IV Last administered on 08/04/16 11:03; Start 08/04/16 at 11:00; Stop 08/04/16 at 11:02; Status DC Info (Do NOT chart on this entry -- for MONITORING) 1 each PRN DAILY PRN MC SEE COMMENTS; Start 08/04/16 at 11:15; Stop 08/06/16 at 11:14 Ondansetron HCl (Zofran) 4 mg PRN Q6HRS PRN IV NAUSEA/VOMITING; Start 08/04/16 at 13:45 Acetaminophen (Tylenol) 500 mg PRN Q6HRS PRN PO MILD PAIN / TEMP Last administered on 08/04/16 17:06; Start 08/04/16 at 13:45 Acetaminophen/ Hydrocodone Bitart (Lortab 5/325) 1 tab PRN Q4HRS PRN PO MILD PAIN Last administered on 08/06/16 06:05; Start 08/04/16 at 13:45 Morphine Sulfate 1 mg PRN Q2HR PRN IV PAIN; Start 08/04/16 at 13:45 Aspirin (Ecotrin) 81 mg HS PO Last administered on 08/05/16 20:22; Start 08/04 at 21:00 Carvedilol (Coreg) 6.25 mg BIDWMEALS PO Last administered on 08/06/16 09:02; Start 08/04/16 at 17:00 Clopidogrel Bisulfate (Plavix) 75 mg DAILY PO Last administered on 08/06/16 09 :02; Start 08/04/16 at 14:00 Docusate Sodium (Colace) 100 mg DAILY PO Last administered on 08/06/16 09:02; Start 08/04/16 at 14:00 Finasteride (Proscar) 5 mg DAILY PO Last administered on 08/06/16 09:03; Start 08/04/16 at 14:00 Fluoxetine HCl (Prozac) 20 mg HS PO Last administered on 08/05/16 20:23; Start 08/04/16 at 21:00 Acetaminophen/ Hydrocodone Bitart (Lortab 5/325) 1 tab PRN Q6HRS PRN PO PAIN; Start 08/04/16 at 14:00; Stop 08/05/16 at 14:46; Status DC Lisinopril (Prinivil) 2.5 mg BID PO Last administered on 08/06/16 09:02; Start 08/04/16 at 21:00 Ascorbic Acid (Vitamin C) 500 mg BID PO Last administered on 08/06/16 09:02; Start 08/04/16 at 21:00 Tamsulosin HCl (Flomax) 0.4 mg DAILY PO Last administered on 08/06/16 09:02; Start 08/04/16 at 14:00 Calcium/Vitamin D (Oscal D 500mg/ 200uts) 1 tab BIDWMEALS PO Last administered on 08/06/16 09:03; Start 08/04/16 at 17:00 Non-Formulary Medication 1,000 mg BID PO ; Start 08/04/16 at 21:00; Stop at 21:00; Status DC Acetaminophen/ Hydrocodone Bitart (Lortab 10/325) 2 tab PRN Q6HRS PRN PO MODERATE TO SEVERE PAIN Last administered on 08/06/16 01:39; Start 08/04/16 at 15:00 Cetirizine HCl (Zyrtec) 10 mg DAILY PO Last administered on 08/06/16 09:02; Start 08/04/16 at 15:00 Famotidine (Pepcid) 20 mg QHS PO Last administered on 08/05/16 20:22; Start at 21:00 Atorvastatin Calcium (Lipitor) 20 mg QHS PO Last administered on 08/05/16 20: 22; Start 08/04/16 at 21:00 Pantoprazole Sodium (Protonix) 40 mg DAILYAC PO Last administered on 08/06/16 06:05; Start 08/05/16 at 07:30 Active Scripts Active Hydrocodone-Apap 5-325 (Hydrocodone Bit/Acetaminophen) 1 Each Tablet 1 Tab PO PRN Q6HRS PRN Reported Melatonin 5 Mg Tablet 5 Mg PO PRN QHS PRN Gabapentin 100 Mg Capsule 200 Mg PO QHS Nitrostat (Nitroglycerin) 0.4 Mg Tab.subl 1 Tab SL UD Aspir 81 (Aspirin) 81 Mg Tablet.dr 1 Tab PO HS Glucosamine (Glucosamine Sulfate 2KCL) 1,000 Mg Tablet 1,000 Mg PO BID Docusate Sodium 100 Mg Capsule 1 Cap PO DAILY Vitamin C 500 Mg/15 Ml Liquid (Vit C/Ascorbate Ca/Ascorb Sod) 500 Mg/15 Ml Liquid 500 Mg PO BID Multi Vitamin Daily (Multivitamin) 1 Each Tablet 1 Each PO Caltrate 600 + D Tablet (Calcium Carbonate/Vitamin D3) 1 Each Tablet 1 Each PO BID Loratadine 10 Mg Tablet 1 Tab PO DAILY Hydrocodone-Apap 10-300 (Hydrocodone Bit/Acetaminophen) 1 Each Tablet 2 Tab PO PRN Q6HRS PRN Fluoxetine Hcl 20 Mg Capsule 1 Cap PO HS Ranitidine Hcl 150 Mg Capsule 1 Cap PO HS Pantoprazole Sodium 40 Mg Tablet.dr 20 Mg PO DAILY Lisinopril 2.5 Mg Tablet 1 Tab PO BID Finasteride 5 Mg Tablet 1 Tab PO DAILY Alfuzosin Hcl 10 Mg Tab.er.24h 1 Tab PO DAILY Crestor (Rosuvastatin Calcium) 5 Mg Tablet 5 Mg PO HS Clopidogrel (Clopidogrel Bisulfate) 75 Mg Tablet 1 Tab PO DAILY Carvedilol 6.25 Mg Tablet 1 Tab PO BID Vitals/I & O Vital Sign - Last 24 Hours 08/05/16 08/05/16 08/05/16 08/05/16 15:00 17:21 17:21 18:22 Temp 98.1 98.1 Pulse 67 72 Resp 18 18 18 B/P 131/90 126/84 Pulse Ox 95 95 95 O2 Delivery Room Air Room Air Room Air 08/05/16 08/05/16 08/05/16 08/05/16 19:10 20:00 20:23 23:10 Temp 97.7 96.6 97.7 96.6 Pulse 67 67 60 Resp 18 16 B/P 92/68 92/68 126/84 Pulse Ox 95 93 O2 Delivery Room Air Room Air Room Air 08/06/16 08/06/16 08/06/16 08/06/16 03:15 07:00 07:20 07:59 Temp 97.4 97.6 97.4 97.6 Pulse 60 80 Resp 16 16 B/P 121/81 122/81 Pulse Ox 92 100 O2 Delivery Room Air Room Air Room Air Room Air 08/06/16 08/06/16 09:02 09:02 Pulse 80 80 B/P 122/81 122/81 Intake and Output 08/05/16 08/05/16 08/06/16 15:00 23:00 07:00 Intake Total 400 ml Output Total 750 ml 300 ml Balance -350 ml -300 ml Problem List Problems Medical Problems: (1) Chest pain Status: Acute (2) Chest wall pain Status: Acute (3) Fall Status: Acute (4) Multiple falls Status: Acute (5) Right upper quadrant abdominal pain Status: Acute Assessment ZOEY, post-proctocolectomy with end ileostomy. Plan of Care: Continue current Tx, Mgmt PATTIE REEVES MD Aug 06, 2016 11:01
--- NOTE | 2016-08-06 13:55 | PDOC3 ---
Discharge Summary Visit Information Date of Admission: Aug 04, 2016 Date of Discharge: Aug 06, 2016 Admitting Diagnosis Comment: 1. Frequent falls 2. FTT/gen weakness 3. Geriatric 4. MOd PCM 5. Hx CAD: hx CABG with EF 30% 6. Cardiomyopathy 7. HTN: 6. HLP 8. cognitive decline, w/ also depression, 9. PAIN AT COLOSTOMY SITE Final Diagnosis Problems Medical Problems: (1) Chest pain Status: Acute (2) Chest wall pain Status: Acute (3) Fall Status: Acute (4) Multiple falls Status: Acute (5) Right upper quadrant abdominal pain Status: Acute Brief Hospital Course Allergies Allergies Coded Allergies Type Severity Reaction Last Updated Verified Sulfa (Sulfonamide Antibiotics) Allergy Intermediate 10/31/14 Yes mesalamine Allergy Intermediate 05/17/16 Yes bacitracin Adverse Reaction Intermediate Itching 05/17/16 Yes neomycin Adverse Reaction Intermediate Itching 05/17/16 Yes polymyxin B Adverse Reaction Intermediate Itching 05/17/16 Yes Vital Signs Vital Signs Date Time Temp Pulse Resp B/P Pulse Ox O2 Delivery O2 Flow Rate FiO2 08/06/16 11:00 97.6 64 16 126/81 95 Room Air 97.6 Lab Results Laboratory Tests Test 08/04/16 17:20 Nasal Screen MRSA (PCR) Negative (Negative) Brief Hospital Course Mr. Romero is a 86 old malewas sent by staff of [facility] of frequent falls. There were initial reports of rib pain but pt denies this to me. CTs can shows no acute finding, Pt cant tell me why he is here and denies falling. But he also cant tell what happened and who called EMS LAbs ok, CT abd ok - chronic changes GI consulted - colostomy looks fine and functioning well, stable to me back DIspO; AL MAr done, no change in meds Discharge Information Scheduled Alfuzosin Hcl (Alfuzosin Hcl) 1 TAB PO DAILY (Reported) Aspirin (Aspir 81) 1 TAB PO HS (Reported) Calcium Carbonate/Vitamin D3 (Caltrate 600 + D Tablet) 1 EACH PO BID (Reported) Carvedilol (Carvedilol) 1 TAB PO BID (Reported) Clopidogrel Bisulfate (Clopidogrel) 1 TAB PO DAILY (Reported) Docusate Sodium (Docusate Sodium) 1 CAP PO DAILY (Reported) Finasteride (Finasteride) 1 TAB PO DAILY (Reported) Fluoxetine Hcl (Fluoxetine Hcl) 1 CAP PO HS (Reported) Gabapentin (Gabapentin) 200 MG PO QHS (Reported) Glucosamine Sulfate 2KCL (Glucosamine) 1,000 MG PO BID (Reported) Lisinopril (Lisinopril) 1 TAB PO BID (Reported) Loratadine (Loratadine) 1 TAB PO DAILY (Reported) Nitroglycerin (Nitrostat) 1 TAB SL UD (Reported) Pantoprazole Sodium (Pantoprazole Sodium) 20 MG PO DAILY (Reported) Ranitidine Hcl (Ranitidine Hcl) 1 CAP PO HS (Reported) Rosuvastatin Calcium (Crestor) 5 MG PO HS (Reported) Vit C/Ascorbate Ca/Ascorb Sod (Vitamin C 500 Mg/15 Ml Liquid) 500 MG PO BID ( Reported) Scheduled PRN Hydrocodone Bit/Acetaminophen (Hydrocodone-Apap 10-300) 2 TAB PO PRN Q6HRS PRN PRN PAIN (Reported) Hydrocodone Bit/Acetaminophen (Hydrocodone-Apap 5-325 ) 1 TAB PO PRN Q6HRS PRN PRN PAIN Melatonin (Melatonin) 5 MG PO PRN QHS PRN PRN INSOMNIA (Reported) Miscellaneous Medications Multivitamin (Multi Vitamin Daily) 1 EACH PO (Reported) AARON ACOSTA MD Aug 06, 2016 13:55
[2016-08-06 15:00] VITALS: BP 123/84
[2016-08-06 17:48] VITALS: BP 123/84
== END 2016-08-06 18:20 | DRG 641 ==
LOC: ER 09:02 → 6 SOUTH 12:10
PROVIDERS: ADMIT Internal Medicine; ATTEND Internal Medicine
DX: R62.7 Adult failure to thrive (principal); I42.9 Cardiomyopathy, unspecified; J98.11 Atelectasis; E44.0 Moderate protein-calorie malnutrition; K21.9 Gastro-esophageal reflux disease without esophagitis; I25.10 Atherosclerotic heart disease of native coronary artery without angina pectoris; R07.89 Other chest pain; F32.9 Major depressive disorder, single episode, unspecified; F03.90 Unspecified dementia, unspecified severity, without behavioral disturbance, psychotic disturbance, mood disturbance, and anxiety; E78.00 Pure hypercholesterolemia, unspecified; M19.90 Unspecified osteoarthritis, unspecified site; D12.6 Benign neoplasm of colon, unspecified; E11.9 Type 2 diabetes mellitus without complications; E78.5 Hyperlipidemia, unspecified; F41.9 Anxiety disorder, unspecified; G47.33 Obstructive sleep apnea (adult) (pediatric); I10 Essential (primary) hypertension; Z96.651 Presence of right artificial knee joint; I70.0 Atherosclerosis of aorta; R29.6 Repeated falls; J30.9 Allergic rhinitis, unspecified; J40 Bronchitis, not specified as acute or chronic; Z98.52 Vasectomy status; Z90.49 Acquired absence of other specified parts of digestive tract; Z95.0 Presence of cardiac pacemaker; I25.2 Old myocardial infarction; Z93.3 Colostomy status; Z82.49 Family history of ischemic heart disease and other diseases of the circulatory system; Z88.1 Allergy status to other antibiotic agents; Z88.8 Allergy status to other drugs, medicaments and biological substances; Z88.2 Allergy status to sulfonamides; Z95.5 Presence of coronary angioplasty implant and graft; Z95.1 Presence of aortocoronary bypass graft; Z79.899 Other long term (current) drug therapy; Z79.82 Long term (current) use of aspirin
CPT/HCPCS: 36415; 71010; 74177; 80048; 80076; 81001; 82550; 83690; 84484; 85027; 85610; 87086; 87641; 93005; J3010; Q9967; 97110; 97116; 97530; 99285-25

== ENCOUNTER 2016-09-29 08:49 | Emergency (ER) | payer MEDICARE, BC ==
[~2016-09-29] VITALS: Ht 182.9 cm; Wt 86.2 kg
[~2016-09-29 08:49] MED LIST changes: +GABA-585 PO; +MELA5TAB PO
[2016-09-29] MEDS ORDERED: DIPHTH,PERTUSS(ACELL),TET TOX 0.5 ML DISP.SYRIN. VAX IM ONE (09:15)
[2016-09-29] MEDS ORDERED: NEOMY/BACITR/POLYMYXIN OINT PACKET. TP ONE (09:15)
--- NOTE | 2016-09-29 10:23 | RAD ---
Right elbow, 3 views, 09/29/2016: History: Elbow pain after a fall The lateral view is suboptimal due to patient rotation. No fracture or dislocation is identified. IMPRESSION: No acute bony abnormality is detected.
--- NOTE | 2016-09-29 10:46 | RAD ---
CT of the head without contrast, 09/29/2016: History: Fall Noncontrast scans were obtained and compared to a study from 06/16/2016. There is moderate cerebral atrophy. There are extensive patchy lucencies in the deep white matter bilaterally. These are unchanged and are compatible with chronic ischemic change. There is a small unchanged lucency in the left basal ganglia/thalamus compatible with an old infarct. Several small cerebellar lucencies are also unchanged. The ventricles are within normal limits in size considering the atrophy. There is no shift of the midline structures. There is no evidence of acute intracranial hemorrhage or mass effect. There is an unchanged calcification beneath the inner table of the skull in the high left parietal region compatible with a calcified meningioma or nonspecific dural calcification Mild mucosal thickening is noted in both ethmoid sinuses. IMPRESSION: 1. Chronic findings as described above. 2. No acute intracranial abnormality is detected. PQRS Compliance Statement: One or more of the following individualized dose reduction techniques were utilized for this examination: 1. Automated exposure control 2. Adjustment of the mA and/or kV according to patient size 3. Use of iterative reconstruction technique
--- NOTE | 2016-09-29 12:53 | PHYS DOC ---
Past Medical History Past Medical History: Arthritis, CAD, Dementia, Depression, GERD, High Cholesterol, Heart Disease, [place], Other Additional Past Medical Histor: ulcerative colitis, [place] 2005, BPH, INSOMNIA Past Surgical History: Appendectomy, Pacemaker, Tonsillectomy, Other Additional Past Surgical Histo: Cardiac stents x 4, COLOSTOMY Alcohol Use: None Drug Use: None Adult General Chief Complaint Chief Complaint: MECHANICAL FALL HPI HPI Patient is a 86 year old male with history of dementia, hypertension, high cholesterol, and acid reflex who presents today status post fall in a [facility]. Patient himself states he tried calling for help before getting up and nobody came so he stood up to start to ambulate, he states he fell forward. Patient states he hit his head on the wall. Patient denies any loss of consciousness. Denies any pain. Review of Systems Review of Systems Constitutional: Denies fever or chills [] Eyes: Denies change in visual acuity, redness, or eye pain [] HENT: Denies nasal congestion or sore throat [] Respiratory: Denies cough or shortness of breath [] Cardiovascular: No additional information not addressed in HPI [] GI: Denies abdominal pain, nausea, vomiting, bloody stools or diarrhea [] : Denies dysuria or hematuria [] Musculoskeletal: Bruising on the right elbow Integument: Denies rash or skin lesions [] Neurologic: Head contusion Endocrine: Denies polyuria or polydipsia [] Current Medications Current Medications Current Medications Medications (Trade) Dose Ordered Sig/Helen Start Time Stop Time Status Last Admin Dose Admin Diphtheria/ Tetanus/Acell Pertussis (Boostrix) 0.5 ml ONCE ONCE 09/29/16 09:15 09/29/16 09:17 DC 09/29/16 12:34 0.5 ML Neomycin/ Polymyxin/ Bacitracin (Triple Antibiotic Ointment) 1 pkt 1X ONCE 09/29/16 09:15 09/29/16 09:17 DC 09/29/16 12:33 1 PKT Allergies Allergies Allergies Coded Allergies Type Severity Reaction Last Updated Verified Sulfa (Sulfonamide Antibiotics) Allergy Intermediate 10/31/14 Yes mesalamine Allergy Intermediate 05/17/16 Yes bacitracin Adverse Reaction Intermediate Itching 05/17/16 Yes neomycin Adverse Reaction Intermediate Itching 05/17/16 Yes polymyxin B Adverse Reaction Intermediate Itching 05/17/16 Yes Physical Exam Physical Exam Constitutional: Well developed, well nourished, no acute distress, non-toxic appearance. [] HENT: Normocephalic, atraumatic, bilateral external ears normal, oropharynx moist, no oral exudates, nose normal. [] Eyes: PERRLA, EOMI, conjunctiva normal, no discharge. [] Neck: Normal range of motion, no tenderness, supple, no stridor. [] Cardiovascular:Heart rate regular rhythm, no murmur [] Lungs & Thorax: Bilateral breath sounds clear to auscultation [] Abdomen: Bowel sounds normal, soft, no tenderness, no masses, no pulsatile masses. [] Skin: Right elbow with small amount of bruising. Back: No tenderness, no CVA tenderness. [] Extremities: No tenderness, no cyanosis, no clubbing, ROM intact, no edema. [] Neurologic: Alert and oriented X 3, normal motor function, normal sensory function, no focal deficits noted. Cranial nerves II through XII intact Psychologic: Affect normal, judgement normal, mood normal. [] EKG EKG [] Radiology/Procedures Radiology/Procedures [] Course & Med Decision Making Course & Med Decision Making Pertinent Labs and Imaging studies reviewed. (See chart for details) This is a [facility]iary patient presents to the ED status post fall. Patient has no complaints. He has no pain anywhere. CT of the head is negative for any acute findings. Elbow x-ray was done because he has bruising on the elbow. Elbow x-ray interpreted by radiologist as negative for any acute findings. Patient was discharged back to [facility]. To be followed up by penitentiary doctor. Dragon Disclaimer Dragon Disclaimer This electronic medical record was generated, in whole or in part, using a voice recognition dictation system. Departure Departure Impression: Primary Impression: Fall from standing Additional Impressions: Head contusion Elbow contusion Disposition: 01 HOME, SELF-CARE Condition: STABLE Referrals: LILLY URIBE MD (PCP) Follow-up with your own doctor in the next 7 days Patient Instructions: Contusion, Fall Prevention and Home Safety Additional Instructions: You were seen status post fall. Your CT of the head is negative for any acute findings. X-ray of the right elbow is negative for any acute findings. Follow- up with your own doctor in one week. Come back to the ED if symptoms worsen. Problem Qualifiers Primary Impression: Fall from standing Encounter type: initial encounter Qualified Code: W19.XXXA - Unspecified fall, initial encounter Additional Impressions: Head contusion Encounter type: initial encounter Contusion of head detail: scalp Qualified Code: S00.03XA - Contusion of scalp, initial encounter Elbow contusion Encounter type: initial encounter Laterality: right Qualified Code: S50.01XA - Contusion of right elbow, initial encounter MARY JANE RICK APRN Sep 29, 2016 12:53
[2016-09-29 14:50] VITALS: BP 144/96
== END 2016-09-29 15:18 | disposition home or self-care (01) ==
LOC: ER 08:49
DX: S00.03XA Contusion of scalp, initial encounter (principal); S50.01XA Contusion of right elbow, initial encounter; F03.90 Unspecified dementia, unspecified severity, without behavioral disturbance, psychotic disturbance, mood disturbance, and anxiety; E78.00 Pure hypercholesterolemia, unspecified; K21.9 Gastro-esophageal reflux disease without esophagitis; M19.90 Unspecified osteoarthritis, unspecified site; I25.10 Atherosclerotic heart disease of native coronary artery without angina pectoris; I11.9 Hypertensive heart disease without heart failure; F32.9 Major depressive disorder, single episode, unspecified; I25.2 Old myocardial infarction; N40.0 Benign prostatic hyperplasia without lower urinary tract symptoms; G47.00 Insomnia, unspecified; Z95.5 Presence of coronary angioplasty implant and graft; Z96.89 Presence of other specified functional implants; Z88.1 Allergy status to other antibiotic agents; Z88.2 Allergy status to sulfonamides; Z88.8 Allergy status to other drugs, medicaments and biological substances; W01.198A Fall on same level from slipping, tripping and stumbling with subsequent striking against other object, initial encounter; Y93.89 Activity, other specified; Y92.129 Unspecified place in nursing home as the place of occurrence of the external cause; Y99.8 Other external cause status
CPT/HCPCS: 70450; 73080; 90471; 90715; 99284-25

== ENCOUNTER 2016-10-28 16:39 | Inpatient (IN) | payer MEDICARE ==
[~2016-10-28] VITALS: Ht 182.9 cm; Wt 88.0 kg
[~2016-10-28 16:39] MED LIST changes: +WARF-78 PO; -WARF5TAB PO
[2016-10-28] MEDS ORDERED: fentaNYL PF VIAL 100 MCG/2 ML VIAL IV ONE (17:15)
[2016-10-28] MEDS ORDERED: ONDANSETRON PF 4 MG/2 ML VIAL. IV ONE (17:15)
[2016-10-28 17:40] LABS: BASO # 0.1 x10^3/uL (0.0-0.2); BASO % 1 % (0-3); EOS % 5 % (0-3); HEMATOCRIT 47.4 % (39.0-53.0); HEMOGLOBIN 15.8 g/dL (13.0-17.5); LYMPH # 2.8 x10^3/uL (1.0-4.8); LYMPH % 25 % (24-48); MEAN CORPUSCULAR HEMOGLOBIN 33 pg (25-35); MEAN CORPUSCULAR HGB CONC 33 g/dL (31-37); MEAN CORPUSCULAR VOLUME 100 fL (79-100); MONO % 17 % (0-9); NEUT % 52 % (31-73); PLATELET COUNT 210 x10^3/uL (140-400); RED BLOOD COUNT 4.75 x10^6/uL (4.30-5.70); RED CELL DISTRIBUTION WIDTH 14.1 % (11.5-14.5)
[2016-10-28 18:10] LABS: % EOS 10 % (0-5); PLT ESTIMATE ADEQUATE (ADEQUATE)
[2016-10-28 18:48] LABS: CREATININE 1.2 mg/dL (0.7-1.3); GFR 57.7; POTASSIUM 4.7 mmol/L (3.5-5.1)
[2016-10-28 18:54] LABS: ALBUMIN 3.5 g/dL (3.4-5.0); ALBUMIN/GLOBULIN RATIO 0.6 (1.0-1.7); TOTAL BILIRUBIN 0.7 mg/dL (0.2-1.0); TOTAL PROTEIN 8.9 g/dL (6.4-8.2)
[2016-10-28] MEDS ORDERED: FLUCONAZOLE 100 MG TABLET. PO ONE (19:15)
[2016-10-28] MEDS ORDERED: HYDROcodone/APAP 5/325MG 1 TAB TABLET PO PRN ×2 (19:15→20:00)
[2016-10-28] MEDS ORDERED: ONDANSETRON PF 4 MG/2 ML VIAL. IV PRN ×2 (19:15→19:52)
[2016-10-28] MEDS ORDERED: CLINDAMYCIN 600MG PREMIX 50 ML IV ONE (19:30)
--- NOTE | 2016-10-28 19:55 | ED.ADGEN ---
Past Medical History Past Medical History: Arthritis, CAD, Dementia, Depression, GERD, High Cholesterol, Heart Disease, [place], Other Additional Past Medical Histor: ulcerative colitis, [place] 2005, BPH, INSOMNIA Past Surgical History: Appendectomy, Pacemaker, Tonsillectomy, Other Additional Past Surgical Histo: Cardiac stents x 4, COLOSTOMY Alcohol Use: None Drug Use: None Adult General Chief Complaint Chief Complaint: SKIN PROBLEM HPI HPI Patient is a 86 year old male with history of dementia and remote ileostomy placement who presents with diffuse skin rash surrounding the ostomy site, lower abdomen and groin region. Patient has had leaking ostomy site for the past several weeks. He resides at assisted care living facility. He is been addressing this with local powders without success. Today, the patient was evaluated by his nurse practitioner and referred to the ED for evaluation of comprehensive wound care. No fever chills, nausea vomiting or sweats. Review of Systems Review of Systems ROS as per HPI Current Medications Current Medications Current Medications Medications (Trade) Dose Ordered Sig/Helen Start Time Stop Time Status Last Admin Dose Admin Acetaminophen/ Hydrocodone Bitart (Lortab 5/325) 1 tab PRN Q6HRS PRN 10/28/16 19:15 Clindamycin Phosphate 50 ml @ 100 mls/hr Q8H 10/29/16 03:00 Fentanyl Citrate (Fentanyl 2ml Vial) 50 mcg 1X ONCE 10/28/16 17:15 10/28/16 17:17 DC 10/28/16 17:15 50 MCG Fluconazole (Diflucan) 150 mg 1X ONCE 10/28/16 19:15 10/28/16 19:16 DC 10/28/16 19:20 150 MG Ondansetron HCl (Zofran) 4 mg PRN Q8HRS PRN 10/28/16 19:15 10/29/16 19:14 Sodium Chloride 1,000 ml @ 125 mls/hr Q8H 10/28/16 19:10 10/29/16 19:09 Allergies Allergies Allergies Coded Allergies Type Severity Reaction Last Updated Verified Sulfa (Sulfonamide Antibiotics) Allergy Intermediate 10/31/14 Yes mesalamine Allergy Intermediate 05/17/16 Yes bacitracin Adverse Reaction Intermediate Itching 05/17/16 Yes neomycin Adverse Reaction Intermediate Itching 05/17/16 Yes polymyxin B Adverse Reaction Intermediate Itching 05/17/16 Yes Physical Exam Physical Exam Constitutional: Well developed, well nourished, no acute distress, non-toxic appearance. HENT: Normocephalic, atraumatic, bilateral external ears normal, oropharynx moist, no oral exudates, nose normal. Eyes: PERRLA, EOMI, conjunctiva normal, no discharge. Neck: Normal range of motion. Cardiovascular:Heart rate regular rhythm, no murmur Lungs & Thorax: Bilateral breath sounds clear to auscultation Abdomen: Aching ileostomy site with diffuse bright red rash surrounding ileostomy site, with spreading to lower abdomen, groin and genitals. Patient does not have demonstrable gangrene to this region. Skin: Diffuse erythema of lower abdomen and groin, no induration scaling or weeping. Rash is coated with white cottage cheeselike substance and covered an unknown powder Extremities: No tenderness. Neurologic: Alert and oriented, normal motor function, normal sensory function, no focal deficits noted. Psychologic: Affect normal, judgement normal, mood normal. Current Patient Data Vital Signs Vital Signs Date Time Temp Pulse Resp B/P (MAP) Pulse Ox O2 Delivery O2 Flow Rate FiO2 10/28/16 18:52 76 20 141/94 (110) 94 10/28/16 18:00 98.6 Room Air 98.6 Lab Values Laboratory Tests Test 10/28/16 17:25 White Blood Count 11.0 x10^3/uL (4.0-11.0) Red Blood Count 4.75 x10^6/uL (4.30-5.70) Hemoglobin 15.8 g/dL (13.0-17.5) Hematocrit 47.4 % (39.0-53.0) Mean Corpuscular Volume 100 fL (79-100) Mean Corpuscular Hemoglobin 33 pg (25-35) Mean Corpuscular Hemoglobin Concent 33 g/dL (31-37) Red Cell Distribution Width 14.1 % (11.5-14.5) Platelet Count 210 x10^3/uL (140-400) Neutrophils (%) (Auto) 52 % (31-73) Lymphocytes (%) (Auto) 25 % (24-48) Monocytes (%) (Auto) 17 % (0-9) H Eosinophils (%) (Auto) 5 % (0-3) H Basophils (%) (Auto) 1 % (0-3) Neutrophils # (Auto) 5.7 x10^3uL (1.8-7.7) Lymphocytes # (Auto) 2.8 x10^3/uL (1.0-4.8) Monocytes # (Auto) 1.9 x10^3/uL (0.0-1.1) H Eosinophils # (Auto) 0.6 x10^3/uL (0.0-0.7) Basophils # (Auto) 0.1 x10^3/uL (0.0-0.2) Segmented Neutrophils % 51 % (35-66) Lymphocytes % 26 % (24-48) Monocytes % 13 % (0-10) H Eosinophils % 10 % (0-5) H Platelet Estimate Adequate (ADEQUATE) Sodium Level 137 mmol/L (136-145) Potassium Level 4.7 mmol/L (3.5-5.1) Chloride Level 102 mmol/L (98-107) Carbon Dioxide Level 23 mmol/L (21-32) Anion Gap 12 (6-14) Blood Urea Nitrogen 25 mg/dL (8-26) Creatinine 1.2 mg/dL (0.7-1.3) Estimated GFR (Cockcroft-Gault) 57.7 BUN/Creatinine Ratio 21 (6-20) H Glucose Level 86 mg/dL (70-99) Calcium Level 10.0 mg/dL (8.5-10.1) Total Bilirubin 0.7 mg/dL (0.2-1.0) Aspartate Amino Transferase (AST) 34 U/L (15-37) Alanine Aminotransferase (ALT) 27 U/L (16-63) Alkaline Phosphatase 66 U/L (46-116) Total Protein 8.9 g/dL (6.4-8.2) H Albumin 3.5 g/dL (3.4-5.0) Albumin/Globulin Ratio 0.6 (1.0-1.7) L Laboratory Tests 10/28/16 17:25 Laboratory Tests 10/28/16 17:25 EKG EKG [] Radiology/Procedures Radiology/Procedures [] Course & Med Decision Making Course & Med Decision Making Pertinent Labs and Imaging studies reviewed. (See chart for details) [Leaking ileostomy site with diffuse abdominal and groin cellulitis without evidence of gangarege. [place] catheter placed. Dr. Maria agrees to site for ostomy evaluation. Wound care consulted. Dr. Acuna consulted. ] Junior Disclaimer Dragon Disclaimer This electronic medical record was generated, in whole or in part, using a voice recognition dictation system. FILIBERTO REIS DO October 28, 2016 19:55
[2016-10-28] MEDS ORDERED: NON FORMULARY ITEM (Melatonin 5 MG) PO PRN (20:00)
[2016-10-28] MEDS ORDERED: DEXTROSE 50% 25 GM / 50ML DISP.SYRIN. IV PRN (20:00)
[2016-10-28] MEDS ORDERED: ACETAMINOPHEN 500 MG TABLET PO PRN (20:00)
[2016-10-28] MEDS ORDERED: NITROGLYCERIN SUBLINGUAL 0.4 MG BOTTLE OF 25. SL PRN (20:00)
[2016-10-28] MEDS ORDERED: FLUCONAZOLE 200MG/100ML PREMIX 100 ML IV SCH ×2 (20:30→23:00)
--- NOTE | 2016-10-28 20:38 | PDOC1 ---
History and Physical Date of Admission Date of Admission DATE: 10/28/16 TIME: 20:26 Identification/Chief Complaint Chief Complaint sent by [facility] staff for rash in groin Problems: Source Source: Caregiver, Chart review, Patient History of Present Illness History of Present Illness 86 y.o male, rather poor historian, resident of [facility] , sent by staff bec of rash groin area, Rash is rather significant in appearance, inflamed, red, appears burning and tender. Pt claims has been there for 3 days (doubt pt's reliability), He has an indwelling colostomy bag that he is concerned might be leaking, NO family at bedside, but pt relays colostomy has been there for 10 yrs? was done to address his "bleeding". Rash is seen in his suprapubic and pubic area, bilateral groins , scrotum and around colostomy bag site, Some satellite lesions noted, appears red and very inflamed. Looking at old records, last admit here by us on Jul 2016 for the ff dx: 1. Frequent falls 2. FTT/gen weakness 3. Geriatric 4. MOd PCM 5. Hx CAD: hx CABG with EF 30% 6. Cardiomyopathy 7. HTN: 6. HLP 8. cognitive decline, w/ also depression, 9. PAIN AT COLOSTOMY SITE GS has been consulted, planned for some revision of colostomy bag if indeed leaking, Got diflucan 150 mg PO at ER and started on CLinda IV Pt denies fevers at home Labs, WBC normal, no ESR yet, no BC drawn yet. Past Medical History Cardiovascular: CAD, HTN, Hyperlipidemia GI: GERD Psych: Anxiety Musculoskeletal: Osteoarthritis Renal/: Benign prostatic enlarg. Endocrine: Diabetes Past Surgical History Past Surgical History: Appendectomy, Total knee replacement, Tonsillectomy, Colectomy, Colon Resection Family History Family History: Family History Unknown (he cant relay to me) Social History Smoke: No ALCOHOL: none Drugs: None Current Problem List Problem List Problems Medical Problems: (1) Cellulitis Status: Acute Problems: Current Medications Current Medications Current Medications Fentanyl Citrate (Fentanyl 2ml Vial) 50 mcg 1X ONCE IV Last administered on t 17:15; Start 10/28/16 at 17:15; Stop 10/28/16 at 17:17; Status DC Ondansetron HCl (Zofran) 4 mg 1X ONCE IV Last administered on 10/28/16t 17:15 ; Start 10/28/16 at 17:15; Stop 10/28/16 at 17:17; Status DC Clindamycin Phosphate 50 ml @ 100 mls/hr 1X ONCE IV Last administered on 10/28t 18:51; Start 10/28/16 at 19:30; Stop 10/28/16 at 20:00; Status DC Fluconazole (Diflucan) 150 mg 1X ONCE PO Last administered on 10/28/16t 19:20 ; Start 10/28/16 at 19:15; Stop 10/28/16 at 19:16; Status DC Ondansetron HCl (Zofran) 4 mg PRN Q8HRS PRN IV NAUSEA/VOMITING; Start 10/28/16 at 19:15; Stop 10/28/16 at 19:55; Status DC Sodium Chloride 1,000 ml @ 125 mls/hr Q8H IV ; Start 10/28/16 at 19:10; Stop at 19:09 Acetaminophen/ Hydrocodone Bitart (Lortab 5/325) 1 tab PRN Q6HRS PRN PO pain; Start 10/28/16 at 19:15 Clindamycin Phosphate 50 ml @ 100 mls/hr Q8H IV ; Start 10/29/16 at 03:00 Ondansetron HCl (Zofran) 4 mg PRN Q6HRS PRN IV NAUSEA/VOMITING; Start 10/28/16 at 19:52; Stop 10/29/16 at 19:51 Acetaminophen (Tylenol) 500 mg PRN Q6HRS PRN PO MILD PAIN / TEMP; Start at 20:00 Insulin Aspart (NovoLOG) 0-9 UNITS TIDWMEALS SQ ; Start 10/29/16 at 08:00 Dextrose (Dextrose 50%-Water Syringe) 12.5 gm PRN Q15MIN PRN IV SEE COMMENTS; Start 10/28/16 at 20:00 Carvedilol (Coreg) 6.25 mg BIDWMEALS PO ; Start 10/28/16 at 20:30 Docusate Sodium (Colace) 100 mg DAILY PO ; Start 10/29/16 at 09:00 Finasteride (Proscar) 5 mg DAILY PO ; Start 10/29/16 at 09:00 Fluoxetine HCl (PROzac) 20 mg HS PO ; Start 10/28/16 at 21:00 Gabapentin (Neurontin) 200 mg QHS PO ; Start 10/28/16 at 21:00 Acetaminophen/ Hydrocodone Bitart (Lortab 5/325) 1 tab PRN Q6HRS PRN PO PAIN; Start 10/28/16 at 20:00 Lisinopril (Prinivil) 2.5 mg BID PO ; Start 10/28/16 at 21:00 Nitroglycerin (Nitrostat) 0.4 mg PRN Q5MIN PRN SL cp; Start 10/28/16 at 20:00 Pantoprazole Sodium (Protonix) 20 mg DAILYAC PO ; Start 10/29/16 at 07:30 Tamsulosin HCl (Flomax) 0.4 mg DAILY PO ; Start 10/29/16 at 09:00 Calcium/Vitamin D (Oscal D 500mg/ 200uts) 1 tab BIDWMEALS PO ; Start 10/29/16 at 08:00 Non-Formulary Medication 1,000 mg BID PO ; Start 10/28/16 at 21:00; Status UNV Acetaminophen/ Hydrocodone Bitart (Lortab 10/325) 2 tab PRN Q6HRS PRN PO PAIN; Start 10/28/16 at 20:15 Cetirizine HCl (ZyrTEC) 10 mg DAILY PO ; Start 10/29/16 at 09:00 Non-Formulary Medication 5 mg PRN QHS PRN PO INSOMNIA; Start 10/28/16 at 20:00 ; Status UNV Famotidine (Pepcid) 20 mg QHS PO ; Start 10/28/16 at 21:00 Atorvastatin Calcium (Lipitor) 20 mg QHS PO ; Start 10/28/16 at 21:00 Ascorbic Acid (Vitamin C) 500 mg BIDWMEALS PO ; Start 10/29/16 at 08:00 Active Scripts Active Hydrocodone-Apap 5-325 (Hydrocodone Bit/Acetaminophen) 1 Each Tablet 1 Tab PO PRN Q6HRS PRN Reported Melatonin 5 Mg Tablet 5 Mg PO PRN QHS PRN Gabapentin 100 Mg Capsule 200 Mg PO QHS Nitrostat (Nitroglycerin) 0.4 Mg Tab.subl 1 Tab SL UD Aspir 81 (Aspirin) 81 Mg Tablet.dr 1 Tab PO HS Glucosamine (Glucosamine Sulfate 2KCL) 1,000 Mg Tablet 1,000 Mg PO BID Docusate Sodium 100 Mg Capsule 1 Cap PO DAILY Vitamin C 500 Mg/15 Ml Liquid (Vit C/Ascorbate Ca/Ascorb Sod) 500 Mg/15 Ml Liquid 500 Mg PO BID Multi Vitamin Daily (Multivitamin) 1 Each Tablet 1 Each PO Caltrate 600 + D Tablet (Calcium Carbonate/Vitamin D3) 1 Each Tablet 1 Each PO BID Loratadine 10 Mg Tablet 1 Tab PO DAILY Hydrocodone-Apap 10-300 (Hydrocodone Bit/Acetaminophen) 1 Each Tablet 2 Tab PO PRN Q6HRS PRN Fluoxetine Hcl 20 Mg Capsule 1 Cap PO HS Ranitidine Hcl 150 Mg Capsule 1 Cap PO HS Pantoprazole Sodium 40 Mg Tablet.dr 20 Mg PO DAILY Lisinopril 2.5 Mg Tablet 1 Tab PO BID Finasteride 5 Mg Tablet 1 Tab PO DAILY Alfuzosin Hcl 10 Mg Tab.er.24h 1 Tab PO DAILY Crestor (Rosuvastatin Calcium) 5 Mg Tablet 5 Mg PO HS Clopidogrel (Clopidogrel Bisulfate) 75 Mg Tablet 1 Tab PO DAILY Carvedilol 6.25 Mg Tablet 1 Tab PO BID Allergies Allergies: Coded Allergies: Sulfa (Sulfonamide Antibiotics) (Verified Allergy, Intermediate, 10/31/14) mesalamine (Verified Allergy, Intermediate, 05/17/16) bacitracin (Verified Adverse Reaction, Intermediate, Itching, 05/17/16) neomycin (Verified Adverse Reaction, Intermediate, Itching, 05/17/16) polymyxin B (Verified Adverse Reaction, Intermediate, Itching, 05/17/16) ROS General: No: Chills, Night Sweats, Fatigue, Malaise, Appetite, Other PSYCHOLOGICAL ROS: No: Anxiety, Behavioral Disorder, Concentration difficultie , Decreased libido, Depression, Disorientation, Hallucinations, Hostility, Irritablity, Memory difficulties, Mood Swings, Obsessive thoughts, Physical abuse, Sexual abuse, Sleep disturbances, Suicidal ideation, Other Eyes: No Blurry vision, No Decreased vision, No Double vision, No Dry eyes, No Excessive tearing, No Eye Pain, No Itchy Eyes, No Loss of vision, No Photophobia , No Scotomata, No Uses contacts, No Uses glasses, No Other HEENT: No: Heacaches, Visual Changes, Hearing change, Nasal congestion, Nasal discharge, Oral lesions, Sinus pain, Sore Throat, Epistaxis, Sneezing, Snoring, Tinnitus, Vertigo, Vocal changes, Other ALLERGY AND IMMUNOLOGY: No: Hives, Insect Bite Sensitivity, Itchy/Watery Eyes, Nasal Congestion, Post Nasal Drip, Seasonal Allergies, Other Hematological and Lymphatic: No: Bleeding Problems, Blood Clots, Blood Transfusions, Brusing, Night Sweats, Pallor, Swollen Lymph Nodes, Other ENDOCRINE: No: Breast Changes, Galactorrhea, Hair Pattern Changes, Hot Flashes , Malaise/lethargy, Mood Swings, Palpitations, Polydipsia/polyuria, Skin Changes , Temperature Intolerance, Unexpected Weight Changes, Other Respiratory: No: Cough, Hemoptysis, Orthopnea, Pleuritic Pain, Shortness of breath, SOB with excertion, Sputum Changes, Stridor, Tachypnea, Wheezing, Other Gastrointestinal: No Nausea, No Vomiting, No Abdominal Pain, No Diarrhea, No Constipation, No Melena, No Hematochezia, No Other Genitourinary: No Dysuria, No Frequency, No Incontinence, No Hematuria, No Retention, No Discharge, No Urgency, No Pain, No Flank Pain, No Other, No , No , No , No , No , No , No Musculoskeletal: No Gait Disturbance, No Joint Pain, No Joint Stiffness, No Joint Swelling, No Muscle Pain, No Muscular Weakness, No Pain In:, No Swelling In:, No Other Neurological: No Behavorial Changes, No Bowel/Bladder ControlChng, No Confusion , No Dizziness, No Gait Disturbance, No Headaches, No Impaired Coord/balance, No Memory Loss, No Numbness/Tingling, No Seizures, No Speech Problems, No Tremors, No Visual Changes, No Weakness, No Other Skin: Yes Other (burning sensation in gael rash, between his groin and colostomy area) Vitals Vitals Vital Signs Date Time Temp Pulse Resp B/P (MAP) Pulse Ox O2 Delivery O2 Flow Rate FiO2 10/28/16 18:52 76 20 141/94 (110) 94 10/28/16 18:00 98.6 Room Air 98.6 Labs Labs Laboratory Tests Test 10/28/16 17:25 White Blood Count 11.0 x10^3/uL (4.0-11.0) Red Blood Count 4.75 x10^6/uL (4.30-5.70) Hemoglobin 15.8 g/dL (13.0-17.5) Hematocrit 47.4 % (39.0-53.0) Mean Corpuscular Volume 100 fL (79-100) Mean Corpuscular Hemoglobin 33 pg (25-35) Mean Corpuscular Hemoglobin Concent 33 g/dL (31-37) Red Cell Distribution Width 14.1 % (11.5-14.5) Platelet Count 210 x10^3/uL (140-400) Neutrophils (%) (Auto) 52 % (31-73) Lymphocytes (%) (Auto) 25 % (24-48) Monocytes (%) (Auto) 17 % (0-9) Eosinophils (%) (Auto) 5 % (0-3) Basophils (%) (Auto) 1 % (0-3) Neutrophils # (Auto) 5.7 x10^3uL (1.8-7.7) Lymphocytes # (Auto) 2.8 x10^3/uL (1.0-4.8) Monocytes # (Auto) 1.9 x10^3/uL (0.0-1.1) Eosinophils # (Auto) 0.6 x10^3/uL (0.0-0.7) Basophils # (Auto) 0.1 x10^3/uL (0.0-0.2) Segmented Neutrophils % 51 % (35-66) Lymphocytes % 26 % (24-48) Monocytes % 13 % (0-10) Eosinophils % 10 % (0-5) Platelet Estimate Adequate (ADEQUATE) Sodium Level 137 mmol/L (136-145) Potassium Level 4.7 mmol/L (3.5-5.1) Chloride Level 102 mmol/L (98-107) Carbon Dioxide Level 23 mmol/L (21-32) Anion Gap 12 (6-14) Blood Urea Nitrogen 25 mg/dL (8-26) Creatinine 1.2 mg/dL (0.7-1.3) Estimated GFR (Cockcroft-Gault) 57.7 BUN/Creatinine Ratio 21 (6-20) Glucose Level 86 mg/dL (70-99) Calcium Level 10.0 mg/dL (8.5-10.1) Total Bilirubin 0.7 mg/dL (0.2-1.0) Aspartate Amino Transf (AST/SGOT) 34 U/L (15-37) Alanine Aminotransferase (ALT/SGPT) 27 U/L (16-63) Alkaline Phosphatase 66 U/L (46-116) Total Protein 8.9 g/dL (6.4-8.2) Albumin 3.5 g/dL (3.4-5.0) Albumin/Globulin Ratio 0.6 (1.0-1.7) Laboratory Tests Test 10/28/16 17:25 White Blood Count 11.0 x10^3/uL (4.0-11.0) Red Blood Count 4.75 x10^6/uL (4.30-5.70) Hemoglobin 15.8 g/dL (13.0-17.5) Hematocrit 47.4 % (39.0-53.0) Mean Corpuscular Volume 100 fL (79-100) Mean Corpuscular Hemoglobin 33 pg (25-35) Mean Corpuscular Hemoglobin Concent 33 g/dL (31-37) Red Cell Distribution Width 14.1 % (11.5-14.5) Platelet Count 210 x10^3/uL (140-400) Neutrophils (%) (Auto) 52 % (31-73) Lymphocytes (%) (Auto) 25 % (24-48) Monocytes (%) (Auto) 17 % (0-9) Eosinophils (%) (Auto) 5 % (0-3) Basophils (%) (Auto) 1 % (0-3) Neutrophils # (Auto) 5.7 x10^3uL (1.8-7.7) Lymphocytes # (Auto) 2.8 x10^3/uL (1.0-4.8) Monocytes # (Auto) 1.9 x10^3/uL (0.0-1.1) Eosinophils # (Auto) 0.6 x10^3/uL (0.0-0.7) Basophils # (Auto) 0.1 x10^3/uL (0.0-0.2) Segmented Neutrophils % 51 % (35-66) Lymphocytes % 26 % (24-48) Monocytes % 13 % (0-10) Eosinophils % 10 % (0-5) Platelet Estimate Adequate (ADEQUATE) Sodium Level 137 mmol/L (136-145) Potassium Level 4.7 mmol/L (3.5-5.1) Chloride Level 102 mmol/L (98-107) Carbon Dioxide Level 23 mmol/L (21-32) Anion Gap 12 (6-14) Blood Urea Nitrogen 25 mg/dL (8-26) Creatinine 1.2 mg/dL (0.7-1.3) Estimated GFR (Cockcroft-Gault) 57.7 BUN/Creatinine Ratio 21 (6-20) Glucose Level 86 mg/dL (70-99) Calcium Level 10.0 mg/dL (8.5-10.1) Total Bilirubin 0.7 mg/dL (0.2-1.0) Aspartate Amino Transf (AST/SGOT) 34 U/L (15-37) Alanine Aminotransferase (ALT/SGPT) 27 U/L (16-63) Alkaline Phosphatase 66 U/L (46-116) Total Protein 8.9 g/dL (6.4-8.2) Albumin 3.5 g/dL (3.4-5.0) Albumin/Globulin Ratio 0.6 (1.0-1.7) VTE Prophylaxis Ordered VTE Prophylaxis Devices: No VTE Pharmacological Prophylaxi: Yes Assessment/Plan Assessment/Plan 1. Superficial Cellulitis, fungal and possibly bacterial in groin/genital area, colostomy site area, suprapubic and infraumbilical areas 2. Indwelling colostomy bag, possible leakage? 3. Dementia 4. SNU resident, hx falls, gen weakness, FTT 5. Geriatric 6. MOd PCM 7. Hx CAD: hx CABG with CM EF 30% 8. HTN controlled 9. HLP on statin 10. SIRS POA, no sepsis yet PLAN: Admit 2 MN Started on IV clinda at ER level Draw BC too Involve ID Recheck CBC tomorrow WOund care consult GS has been consulted for COlostomy bag concerns NPO post MN incase revisions needed to be done on colostomy bag Check ESR Start diflucan IV Also start nystatin powder PT/OT resume home meds except ASA and plavix until GS sees pt, Resume these 2 antiplatelets if no surgical plans DVT prophy Supportive care FULL CODE Harinder RN at bedside and pt AARON ACOSTA MD October 28, 2016 20:38
[2016-10-28 20:59] VITALS: BP 140/85
[2016-10-28] MEDS ORDERED: NON FORMULARY ITEM (Glucosamine Sulfate 2KCL (Glucosamine) 1,000 MG) PO SCH (21:00)
[2016-10-28] MEDS: IV NORMAL SALINE 1000ML BAG 1,000 ML IV SCH (21:46)
[2016-10-28] MEDS: ATORVASTATIN CALCIUM 20 MG TABLET PO SCH (21:51)
[2016-10-28] MEDS: LISINOPRIL 2.5 MG TABLET PO SCH (21:51)
[2016-10-28] MEDS: FLUoxetine HCL 20 MG CAPSULE PO SCH (21:52)
[2016-10-28] MEDS: GABAPENTIN 100 MG CAPSULE. PO SCH (21:52)
[2016-10-28] MEDS: FAMOTIDINE 20 MG TABLET. PO SCH (21:52)
[2016-10-28] MEDS: CARVEDILOL 6.25 MG TABLET. PO SCH (21:56)
[2016-10-28] MEDS: NYSTATIN TOPICAL POWDER 15GM BOTTLE. TP SCH (21:56)
--- NOTE | 2016-10-28 23:19 | ACF ---
Admission Forms Criteria CELLULITIS Clinical Indications for Admission to Inpatient Care (Place 'X' for any and all applicable criteria): Admission is indicated for ANY ONE of the following(1)(2)(3)(4)(5): [ ]I. Limb-threatening infection [ ]II. High-risk comorbid condition as indicated by ANY ONE of the following: [ ]a) Uncontrolled diabetes (eg, HbA1c greater than 10% (0.1)) [ ]b) Cirrhosis [ ]c) Neutropenia [ ]d) Asplenia [ ]e) Immunosuppression [ ]f) Symptomatic heart failure [ ]III. Failure of outpatient therapy as indicated by ALL of the following: [ ]a) Progression or no improvement after adequate trial (minimum of 48 hours, with longer period for stable lower extremity infection) [ ]b) Adequate antibiotic regimen as indicated by use of ANY ONE of the following: [ ]i) First-generation cephalosporin (e.g., cephalexin) [ ]ii) Antistaphylococcal penicillin (e.g., dicloxacillin) [ ]iii) Penicillin-allergic patient regimen (clindamycin, extended-spectrum fluoroquinolone, or doxycycline) [ ]iv) Resistant organism (eg, methicillin-resistant Staphylococcus aureus) regimen (6) [ ]c) Outpatient intravenous therapy regimen is not appropriate due to ANY ONE of the following. (7)(8)(9)(10): [ ]i) It was tried and was not successful (eg, progression of infection). [ ]ii) It is not available or cannot be arranged in a clinically appropriate time frame (e.g., the next day). [ ]iii) Clinical presentation (eg, acuity of infection, rapidity of progression, confirmed or suspected bacteremia) is judged to require ALL of the following: [ ]1) Immediate initiation of intravenous therapy ( eg, cannot wait for next day) [ ]2) Intensity of patient monitoring and observation (eg, vital sign measurement, checks for infection progression) that cannot be provided at other than inpatient level of care [ ]IV. Mental status changes [ ]V. Bacteremia [ ]. Hemodynamic instability [ ]VII. Suspected necrotizing soft tissue infection (e.g., gas in tissue)(11)( 12) [ ]VIII. Orbital infection (13)(14) [ ]IX. Associated surgical procedure (e.g., abscess drainage, debridement) not amenable to outpatient, emergency department, or observation care [ ]X. Cutaneous gangrene [ ]XI. High fever (temperature greater than 39.5 degrees C (103.1 degrees F) (oral)) not responsive to outpatient, emergency department, or observation care therapy [X ]XIII. Inpatient admission required rather than observation care (Also use Cellulitis: Observation Care as appropriate) because of ANY ONE of the following : [ ]a) Periorbital or perineal infection that is severe or worsening [ ]b) Severe pain requiring acute inpatient management [ ]c) IV fluid to replace significant ongoing (e.g., for over 24 hours) losses (greater than 3L/m2 per day) [ ]d) Compartment syndrome monitoring (17) [ ]e) Strict or protective (eg, laminar flow) isolation [ ]f) Urgent debridement or skin grafting [ ]g) Bone or joint debridement [ ]h) Immediate inpatient surgery [X ]i) Other condition, treatment or monitoring requiring inpatient admission Extended stay beyond goal length of stay may be needed for (1)(18): [ ]a) Necrotizing soft tissue infection or fasciitis [ ]b) Gram-negative infection [ ]c) Methicillin-resistant Staphylococcal aureus (MRSA) infection [ ]d) Peripheral venous insufficiency with cellulitis [ ]e) Extensive edema [ ]f) Sepsis or continued Hemodynamic instability [ ]g) Continued high fever or mental status change [ ]h) Bacteremia [ ]i) Active serious comorbid conditions ( eg, heart failure, renal insufficiency) The original [facility] content created by [employer] has been revised. The portions of the content which have been revised are identified through the use of italic text or in bold, and [facility] has neither reviewed nor approved the modified material. All other unmodified content is copyright [facility] Please see references footnoted in the original [facility] edition 2016 Admission Criteria Met?: Yes OKSANA CRUZ October 28, 2016 23:19
[2016-10-29] MEDS ORDERED: CLINDAMYCIN 600MG PREMIX 50 ML IV SCH (03:00)
[2016-10-29 03:24] VITALS: BP 116/69
[2016-10-29] MEDS ORDERED: CETI10TA22 PO (04:40)
[2016-10-29] MEDS ORDERED: FLUT9.9S NS (04:40)
[2016-10-29] MEDS ORDERED: SOLI5TAB PO (04:40)
[2016-10-29] MEDS ORDERED: BUPR300T4 PO (04:40)
[2016-10-29 05:45] LABS: BASO # 0.1 x10^3/uL (0.0-0.2); BASO % 1 % (0-3); EOS % 9 % (0-3); HEMATOCRIT 39.6 % (39.0-53.0); HEMOGLOBIN 13.6 g/dL (13.0-17.5); LYMPH # 2.2 x10^3/uL (1.0-4.8); LYMPH % 22 % (24-48); MEAN CORPUSCULAR HEMOGLOBIN 34 pg (25-35); MEAN CORPUSCULAR HGB CONC 34 g/dL (31-37); MEAN CORPUSCULAR VOLUME 98 fL (79-100); MONO % 20 % (0-9); NEUT % 48 % (31-73); PLATELET COUNT 187 x10^3/uL (140-400); RED BLOOD COUNT 4.04 x10^6/uL (4.30-5.70); RED CELL DISTRIBUTION WIDTH 14.1 % (11.5-14.5); WHITE BLOOD COUNT 9.9 x10^3/uL (4.0-11.0)
[2016-10-29 05:51] LABS: CALCIUM 8.8 mg/dL (8.5-10.1); CREATININE 1.1 mg/dL (0.7-1.3); GFR 63.8; POTASSIUM 3.8 mmol/L (3.5-5.1)
[2016-10-29] MEDS: IV NORMAL SALINE 1000ML BAG 1,000 ML IV SCH ×2 (06:09→20:38)
[2016-10-29] MEDS ORDERED: PANTOPRAZOLE 40 MG TABLET.DR. PO SCH (07:30)
[2016-10-29 07:37] VITALS: BP 117/68
[2016-10-29] MEDS: INSULIN ASPART 300 UNITS/3 ML INSULN.PEN SQ SCH ×3 (08:00→17:00)
[2016-10-29] MEDS: ASCORBIC ACID 500 MG TABLET PO SCH ×2 (08:00→16:54)
[2016-10-29] MEDS: TAMSULOSIN 0.4 MG CAP.ER.24H. PO SCH (09:11)
[2016-10-29] MEDS: CETIRIZINE HCL 10 MG TABLET. PO SCH (09:11)
[2016-10-29] MEDS: DOCUSATE SODIUM 100 MG CAPSULE. PO SCH (09:11)
[2016-10-29] MEDS: LISINOPRIL 2.5 MG TABLET PO SCH ×2 (09:12→20:46)
[2016-10-29] MEDS: CALCIUM CARB/VIT D3 500/200 TABLET. PO SCH ×2 (09:12→16:54)
[2016-10-29] MEDS: CARVEDILOL 6.25 MG TABLET. PO SCH ×2 (09:12→16:56)
[2016-10-29] MEDS: FINASTERIDE 5 MG TABLET. PO SCH (09:12)
--- NOTE | 2016-10-29 09:53 | PDOC ---
Infectious Disease Note ROS ROS GEN: Denies fevers, chills, sweats HEENT: Denies blurred vision, sore throat CV: Denies chest pain RESP: Denies shortness of air, cough GI: Denies n/v/d NEURO: Denies confusion, dizziness MSK: Denies weakness, joint pain/swelling Vital Sign Vital Signs Vital Signs Date Time Temp Pulse Resp B/P (MAP) Pulse Ox O2 Delivery O2 Flow Rate FiO2 10/29/16 09:12 59 117/68 10/29/16 07:37 96.8 18 93 Room Air 96.8 Physical Exam PHYSICAL EXAM GENERAL: NAD, Alert HEENT: PERRL, OC/OP NECK: Supple, no JVD, no LN LUNGS: Clear HEART: S1S2, no gallop, no murmur ABD: Soft, NT, no organomegaly, no rebound EXT: No edema, no cyanosis SUPERVISOR PURIFICATION: Alert, oriented x 3, no focal neurologic deficit SKIN: No rash IV: ok Labs Lab Laboratory Tests Test 10/28/16 17:25 10/29/16 04:50 10/29/16 07:41 White Blood Count 11.0 x10^3/uL (4.0-11.0) 9.9 x10^3/uL (4.0-11.0) Red Blood Count 4.75 x10^6/uL (4.30-5.70) 4.04 x10^6/uL (4.30-5.70) Hemoglobin 15.8 g/dL (13.0-17.5) 13.6 g/dL (13.0-17.5) Hematocrit 47.4 % (39.0-53.0) 39.6 % (39.0-53.0) Mean Corpuscular Volume 100 fL (79-100) 98 fL (79-100) Mean Corpuscular Hemoglobin 33 pg (25-35) 34 pg (25-35) Mean Corpuscular Hemoglobin Concent 33 g/dL (31-37) 34 g/dL (31-37) Red Cell Distribution Width 14.1 % (11.5-14.5) 14.1 % (11.5-14.5) Platelet Count 210 x10^3/uL (140-400) 187 x10^3/uL (140-400) Neutrophils (%) (Auto) 52 % (31-73) 48 % (31-73) Lymphocytes (%) (Auto) 25 % (24-48) 22 % (24-48) Monocytes (%) (Auto) 17 % (0-9) 20 % (0-9) Eosinophils (%) (Auto) 5 % (0-3) 9 % (0-3) Basophils (%) (Auto) 1 % (0-3) 1 % (0-3) Neutrophils # (Auto) 5.7 x10^3uL (1.8-7.7) 4.8 x10^3uL (1.8-7.7) Lymphocytes # (Auto) 2.8 x10^3/uL (1.0-4.8) 2.2 x10^3/uL (1.0-4.8) Monocytes # (Auto) 1.9 x10^3/uL (0.0-1.1) 2.0 x10^3/uL (0.0-1.1) Eosinophils # (Auto) 0.6 x10^3/uL (0.0-0.7) 0.9 x10^3/uL (0.0-0.7) Basophils # (Auto) 0.1 x10^3/uL (0.0-0.2) 0.1 x10^3/uL (0.0-0.2) Segmented Neutrophils % 51 % (35-66) Lymphocytes % 26 % (24-48) Monocytes % 13 % (0-10) Eosinophils % 10 % (0-5) Platelet Estimate Adequate (ADEQUATE) Erythrocyte Sedimentation Rate 36 (0-15) Sodium Level 137 mmol/L (136-145) 141 mmol/L (136-145) Potassium Level 4.7 mmol/L (3.5-5.1) 3.8 mmol/L (3.5-5.1) Chloride Level 102 mmol/L (98-107) 107 mmol/L (98-107) Carbon Dioxide Level 23 mmol/L (21-32) 26 mmol/L (21-32) Anion Gap 12 (6-14) 8 (6-14) Blood Urea Nitrogen 25 mg/dL (8-26) 21 mg/dL (8-26) Creatinine 1.2 mg/dL (0.7-1.3) 1.1 mg/dL (0.7-1.3) Estimated GFR (Cockcroft-Gault) 57.7 63.8 BUN/Creatinine Ratio 21 (6-20) Glucose Level 86 mg/dL (70-99) 74 mg/dL (70-99) Calcium Level 10.0 mg/dL (8.5-10.1) 8.8 mg/dL (8.5-10.1) Total Bilirubin 0.7 mg/dL (0.2-1.0) Aspartate Amino Transf (AST/SGOT) 34 U/L (15-37) Alanine Aminotransferase (ALT/SGPT) 27 U/L (16-63) Alkaline Phosphatase 66 U/L (46-116) Total Protein 8.9 g/dL (6.4-8.2) Albumin 3.5 g/dL (3.4-5.0) Albumin/Globulin Ratio 0.6 (1.0-1.7) Glucose (Fingerstick) 79 mg/dL (70-99) Objective Assessment Right flank/groin cellulitis Tinea CKD Sulfa allergy ? reaction ? ostomy leak Plan Plan of Care Micafungin -h/o recurrent fluconazole D/c Clindamycin Zosyn/Zyvox F/u labs and cults Await surgical eval - D/w Krystyna Reviewed [facility] notes Thank you # [id number] KATHY MORALES MD October 29, 2016 09:53
--- NOTE | 2016-10-29 10:00 | PDOC ---
PROGRESS NOTES Chief Complaint Chief Complaint 1. Cellulitis, fungal and possibly bacterial in groin/genital area 2. Indwelling colostomy bag, 3. Dementia, mod 4. [facility] resident, hx falls, gen weakness, FTT 5. Mod malnutrition 6. Hx CAD: EF 30%, chronic systolic CHF 7. HTN, HLP on statin History of Present Illness History of Present Illness ID changed Abx cont wound care OOB to chair wilkinson monitor labs PT and OT ostomy management FULL CODE Vitals Vitals Vital Signs Date Time Temp Pulse Resp B/P (MAP) Pulse Ox O2 Delivery O2 Flow Rate FiO2 10/29/16 09:12 59 117/68 10/29/16 07:37 96.8 18 93 Room Air 96.8 Physical Exam General: Alert, Cooperative, No acute distress Heart: Regular rate, Normal S1, Normal S2, No murmurs Lungs: Clear Abdomen: Soft, Other Extremities: No clubbing, No cyanosis Skin: Other Labs LABS Laboratory Tests Test 10/28/16 17:25 10/29/16 04:50 10/29/16 07:41 White Blood Count 11.0 x10^3/uL (4.0-11.0) 9.9 x10^3/uL (4.0-11.0) Red Blood Count 4.75 x10^6/uL (4.30-5.70) 4.04 x10^6/uL (4.30-5.70) Hemoglobin 15.8 g/dL (13.0-17.5) 13.6 g/dL (13.0-17.5) Hematocrit 47.4 % (39.0-53.0) 39.6 % (39.0-53.0) Mean Corpuscular Volume 100 fL (79-100) 98 fL (79-100) Mean Corpuscular Hemoglobin 33 pg (25-35) 34 pg (25-35) Mean Corpuscular Hemoglobin Concent 33 g/dL (31-37) 34 g/dL (31-37) Red Cell Distribution Width 14.1 % (11.5-14.5) 14.1 % (11.5-14.5) Platelet Count 210 x10^3/uL (140-400) 187 x10^3/uL (140-400) Neutrophils (%) (Auto) 52 % (31-73) 48 % (31-73) Lymphocytes (%) (Auto) 25 % (24-48) 22 % (24-48) Monocytes (%) (Auto) 17 % (0-9) 20 % (0-9) Eosinophils (%) (Auto) 5 % (0-3) 9 % (0-3) Basophils (%) (Auto) 1 % (0-3) 1 % (0-3) Neutrophils # (Auto) 5.7 x10^3uL (1.8-7.7) 4.8 x10^3uL (1.8-7.7) Lymphocytes # (Auto) 2.8 x10^3/uL (1.0-4.8) 2.2 x10^3/uL (1.0-4.8) Monocytes # (Auto) 1.9 x10^3/uL (0.0-1.1) 2.0 x10^3/uL (0.0-1.1) Eosinophils # (Auto) 0.6 x10^3/uL (0.0-0.7) 0.9 x10^3/uL (0.0-0.7) Basophils # (Auto) 0.1 x10^3/uL (0.0-0.2) 0.1 x10^3/uL (0.0-0.2) Segmented Neutrophils % 51 % (35-66) Lymphocytes % 26 % (24-48) Monocytes % 13 % (0-10) Eosinophils % 10 % (0-5) Platelet Estimate Adequate (ADEQUATE) Erythrocyte Sedimentation Rate 36 (0-15) Sodium Level 137 mmol/L (136-145) 141 mmol/L (136-145) Potassium Level 4.7 mmol/L (3.5-5.1) 3.8 mmol/L (3.5-5.1) Chloride Level 102 mmol/L (98-107) 107 mmol/L (98-107) Carbon Dioxide Level 23 mmol/L (21-32) 26 mmol/L (21-32) Anion Gap 12 (6-14) 8 (6-14) Blood Urea Nitrogen 25 mg/dL (8-26) 21 mg/dL (8-26) Creatinine 1.2 mg/dL (0.7-1.3) 1.1 mg/dL (0.7-1.3) Estimated GFR (Cockcroft-Gault) 57.7 63.8 BUN/Creatinine Ratio 21 (6-20) Glucose Level 86 mg/dL (70-99) 74 mg/dL (70-99) Calcium Level 10.0 mg/dL (8.5-10.1) 8.8 mg/dL (8.5-10.1) Total Bilirubin 0.7 mg/dL (0.2-1.0) Aspartate Amino Transf (AST/SGOT) 34 U/L (15-37) Alanine Aminotransferase (ALT/SGPT) 27 U/L (16-63) Alkaline Phosphatase 66 U/L (46-116) Total Protein 8.9 g/dL (6.4-8.2) Albumin 3.5 g/dL (3.4-5.0) Albumin/Globulin Ratio 0.6 (1.0-1.7) Glucose (Fingerstick) 79 mg/dL (70-99) Review of Systems Review of Systems groin pain no n/.v/d Assessment and Plan Assessmemt and Plan Problems Medical Problems: (1) Cellulitis Status: Acute Problems: Comment Review of Relevant I have reviewed the following items flaco (where applicable) has been applied. Labs Laboratory Tests Test 10/28/16 17:25 10/29/16 04:50 10/29/16 07:41 White Blood Count 11.0 x10^3/uL (4.0-11.0) 9.9 x10^3/uL (4.0-11.0) Red Blood Count 4.75 x10^6/uL (4.30-5.70) 4.04 x10^6/uL (4.30-5.70) Hemoglobin 15.8 g/dL (13.0-17.5) 13.6 g/dL (13.0-17.5) Hematocrit 47.4 % (39.0-53.0) 39.6 % (39.0-53.0) Mean Corpuscular Volume 100 fL (79-100) 98 fL (79-100) Mean Corpuscular Hemoglobin 33 pg (25-35) 34 pg (25-35) Mean Corpuscular Hemoglobin Concent 33 g/dL (31-37) 34 g/dL (31-37) Red Cell Distribution Width 14.1 % (11.5-14.5) 14.1 % (11.5-14.5) Platelet Count 210 x10^3/uL (140-400) 187 x10^3/uL (140-400) Neutrophils (%) (Auto) 52 % (31-73) 48 % (31-73) Lymphocytes (%) (Auto) 25 % (24-48) 22 % (24-48) Monocytes (%) (Auto) 17 % (0-9) 20 % (0-9) Eosinophils (%) (Auto) 5 % (0-3) 9 % (0-3) Basophils (%) (Auto) 1 % (0-3) 1 % (0-3) Neutrophils # (Auto) 5.7 x10^3uL (1.8-7.7) 4.8 x10^3uL (1.8-7.7) Lymphocytes # (Auto) 2.8 x10^3/uL (1.0-4.8) 2.2 x10^3/uL (1.0-4.8) Monocytes # (Auto) 1.9 x10^3/uL (0.0-1.1) 2.0 x10^3/uL (0.0-1.1) Eosinophils # (Auto) 0.6 x10^3/uL (0.0-0.7) 0.9 x10^3/uL (0.0-0.7) Basophils # (Auto) 0.1 x10^3/uL (0.0-0.2) 0.1 x10^3/uL (0.0-0.2) Segmented Neutrophils % 51 % (35-66) Lymphocytes % 26 % (24-48) Monocytes % 13 % (0-10) Eosinophils % 10 % (0-5) Platelet Estimate Adequate (ADEQUATE) Erythrocyte Sedimentation Rate 36 (0-15) Sodium Level 137 mmol/L (136-145) 141 mmol/L (136-145) Potassium Level 4.7 mmol/L (3.5-5.1) 3.8 mmol/L (3.5-5.1) Chloride Level 102 mmol/L (98-107) 107 mmol/L (98-107) Carbon Dioxide Level 23 mmol/L (21-32) 26 mmol/L (21-32) Anion Gap 12 (6-14) 8 (6-14) Blood Urea Nitrogen 25 mg/dL (8-26) 21 mg/dL (8-26) Creatinine 1.2 mg/dL (0.7-1.3) 1.1 mg/dL (0.7-1.3) Estimated GFR (Cockcroft-Gault) 57.7 63.8 BUN/Creatinine Ratio 21 (6-20) Glucose Level 86 mg/dL (70-99) 74 mg/dL (70-99) Calcium Level 10.0 mg/dL (8.5-10.1) 8.8 mg/dL (8.5-10.1) Total Bilirubin 0.7 mg/dL (0.2-1.0) Aspartate Amino Transf (AST/SGOT) 34 U/L (15-37) Alanine Aminotransferase (ALT/SGPT) 27 U/L (16-63) Alkaline Phosphatase 66 U/L (46-116) Total Protein 8.9 g/dL (6.4-8.2) Albumin 3.5 g/dL (3.4-5.0) Albumin/Globulin Ratio 0.6 (1.0-1.7) Glucose (Fingerstick) 79 mg/dL (70-99) Laboratory Tests Test 10/28/16 17:25 10/29/16 04:50 10/29/16 07:41 White Blood Count 11.0 x10^3/uL (4.0-11.0) 9.9 x10^3/uL (4.0-11.0) Red Blood Count 4.75 x10^6/uL (4.30-5.70) 4.04 x10^6/uL (4.30-5.70) Hemoglobin 15.8 g/dL (13.0-17.5) 13.6 g/dL (13.0-17.5) Hematocrit 47.4 % (39.0-53.0) 39.6 % (39.0-53.0) Mean Corpuscular Volume 100 fL (79-100) 98 fL (79-100) Mean Corpuscular Hemoglobin 33 pg (25-35) 34 pg (25-35) Mean Corpuscular Hemoglobin Concent 33 g/dL (31-37) 34 g/dL (31-37) Red Cell Distribution Width 14.1 % (11.5-14.5) 14.1 % (11.5-14.5) Platelet Count 210 x10^3/uL (140-400) 187 x10^3/uL (140-400) Neutrophils (%) (Auto) 52 % (31-73) 48 % (31-73) Lymphocytes (%) (Auto) 25 % (24-48) 22 % (24-48) Monocytes (%) (Auto) 17 % (0-9) 20 % (0-9) Eosinophils (%) (Auto) 5 % (0-3) 9 % (0-3) Basophils (%) (Auto) 1 % (0-3) 1 % (0-3) Neutrophils # (Auto) 5.7 x10^3uL (1.8-7.7) 4.8 x10^3uL (1.8-7.7) Lymphocytes # (Auto) 2.8 x10^3/uL (1.0-4.8) 2.2 x10^3/uL (1.0-4.8) Monocytes # (Auto) 1.9 x10^3/uL (0.0-1.1) 2.0 x10^3/uL (0.0-1.1) Eosinophils # (Auto) 0.6 x10^3/uL (0.0-0.7) 0.9 x10^3/uL (0.0-0.7) Basophils # (Auto) 0.1 x10^3/uL (0.0-0.2) 0.1 x10^3/uL (0.0-0.2) Segmented Neutrophils % 51 % (35-66) Lymphocytes % 26 % (24-48) Monocytes % 13 % (0-10) Eosinophils % 10 % (0-5) Platelet Estimate Adequate (ADEQUATE) Erythrocyte Sedimentation Rate 36 (0-15) Sodium Level 137 mmol/L (136-145) 141 mmol/L (136-145) Potassium Level 4.7 mmol/L (3.5-5.1) 3.8 mmol/L (3.5-5.1) Chloride Level 102 mmol/L (98-107) 107 mmol/L (98-107) Carbon Dioxide Level 23 mmol/L (21-32) 26 mmol/L (21-32) Anion Gap 12 (6-14) 8 (6-14) Blood Urea Nitrogen 25 mg/dL (8-26) 21 mg/dL (8-26) Creatinine 1.2 mg/dL (0.7-1.3) 1.1 mg/dL (0.7-1.3) Estimated GFR (Cockcroft-Gault) 57.7 63.8 BUN/Creatinine Ratio 21 (6-20) Glucose Level 86 mg/dL (70-99) 74 mg/dL (70-99) Calcium Level 10.0 mg/dL (8.5-10.1) 8.8 mg/dL (8.5-10.1) Total Bilirubin 0.7 mg/dL (0.2-1.0) Aspartate Amino Transf (AST/SGOT) 34 U/L (15-37) Alanine Aminotransferase (ALT/SGPT) 27 U/L (16-63) Alkaline Phosphatase 66 U/L (46-116) Total Protein 8.9 g/dL (6.4-8.2) Albumin 3.5 g/dL (3.4-5.0) Albumin/Globulin Ratio 0.6 (1.0-1.7) Glucose (Fingerstick) 79 mg/dL (70-99) Medications Current Medications Fentanyl Citrate (Fentanyl 2ml Vial) 50 mcg 1X ONCE IV Last administered on 17:15; Start 10/28/16 at 17:15; Stop 10/28/16 at 17:17; Status DC Ondansetron HCl (Zofran) 4 mg 1X ONCE IV Last administered on 10/28/16 17:15 ; Start 10/28/16 at 17:15; Stop 10/28/16 at 17:17; Status DC Clindamycin Phosphate 50 ml @ 100 mls/hr 1X ONCE IV Last administered on 10/28 18:51; Start 10/28/16 at 19:30; Stop 10/28/16 at 20:00; Status DC Fluconazole (Diflucan) 150 mg 1X ONCE PO Last administered on 10/28/16 19:20 ; Start 10/28/16 at 19:15; Stop 10/28/16 at 19:16; Status DC Ondansetron HCl (Zofran) 4 mg PRN Q8HRS PRN IV NAUSEA/VOMITING; Start 10/28/16 at 19:15; Stop 10/28/16 at 19:55; Status DC Sodium Chloride 1,000 ml @ 125 mls/hr Q8H IV Last administered on 10/29/16 06 :09; Start 10/28/16 at 19:10; Stop 10/29/16 at 19:09 Acetaminophen/ Hydrocodone Bitart (Lortab 5/325) 1 tab PRN Q6HRS PRN PO pain Last administered on 10/29/16 03:20; Start 10/28/16 at 19:15 Clindamycin Phosphate 50 ml @ 100 mls/hr Q8H IV Last administered on 02:59; Start 10/29/16 at 03:00; Stop 10/29/16 at 09:41; Status DC Ondansetron HCl (Zofran) 4 mg PRN Q6HRS PRN IV NAUSEA/VOMITING; Start 10/28/16 at 19:52; Stop 10/29/16 at 19:51 Acetaminophen (Tylenol) 500 mg PRN Q6HRS PRN PO MILD PAIN / TEMP; Start at 20:00 Insulin Aspart (NovoLOG) 0-9 UNITS TIDWMEALS SQ ; Start 10/29/16 at 08:00 Dextrose (Dextrose 50%-Water Syringe) 12.5 gm PRN Q15MIN PRN IV SEE COMMENTS; Start 10/28/16 at 20:00 Carvedilol (Coreg) 6.25 mg BIDWMEALS PO Last administered on 10/29/16 09:12; Start 10/28/16 at 20:30 Docusate Sodium (Colace) 100 mg DAILY PO Last administered on 10/29/16 09:11; Start 10/29/16 at 09:00 Finasteride (Proscar) 5 mg DAILY PO Last administered on 10/29/16 09:12; Start 10/29/16 at 09:00 Fluoxetine HCl (PROzac) 20 mg HS PO Last administered on 10/28/16 21:52; Start 10/28/16 at 21:00 Gabapentin (Neurontin) 200 mg QHS PO Last administered on 10/28/16 21:52; Start 10/28/16 at 21:00 Acetaminophen/ Hydrocodone Bitart (Lortab 5/325) 1 tab PRN Q6HRS PRN PO PAIN; Start 10/28/16 at 20:00 Lisinopril (Prinivil) 2.5 mg BID PO Last administered on 10/29/16 09:12; Start 10/28/16 at 21:00 Nitroglycerin (Nitrostat) 0.4 mg PRN Q5MIN PRN SL cp; Start 10/28/16 at 20:00 Pantoprazole Sodium (Protonix) 20 mg DAILYAC PO ; Start 10/29/16 at 07:30 Tamsulosin HCl (Flomax) 0.4 mg DAILY PO Last administered on 10/29/16 09:11; Start 10/29/16 at 09:00 Calcium/Vitamin D (Oscal D 500mg/ 200uts) 1 tab BIDWMEALS PO Last administered on 10/29/16 09:12; Start 10/29/16 at 08:00 Non-Formulary Medication 1,000 mg BID PO ; Start 10/28/16 at 21:00; Status UNV Acetaminophen/ Hydrocodone Bitart (Lortab 10/325) 2 tab PRN Q6HRS PRN PO PAIN; Start 10/28/16 at 20:15 Cetirizine HCl (ZyrTEC) 10 mg DAILY PO Last administered on 10/29/16 09:11; Start 10/29/16 at 09:00 Non-Formulary Medication 5 mg PRN QHS PRN PO INSOMNIA; Start 10/28/16 at 20:00 ; Status UNV Famotidine (Pepcid) 20 mg QHS PO Last administered on 10/28/16 21:52; Start at 21:00 Atorvastatin Calcium (Lipitor) 20 mg QHS PO Last administered on 10/28/16 21: 51; Start 10/28/16 at 21:00 Ascorbic Acid (Vitamin C) 500 mg BIDWMEALS PO ; Start 10/29/16 at 08:00 Nystatin (Nystop) 1 willa BID TP Last administered on 10/28/16 21:56; Start at 21:00 Fluconazole/ Sodium Chloride 100 ml @ 100 mls/hr Q24H IV ; Start 10/28/16 at 20 :30; Status Cancel Fluconazole (Diflucan) 200 mg QHS PO ; Start 10/29/16 at 21:00; Stop 10/29/16 at 21:00; Status DC Fluconazole/ Sodium Chloride 100 ml @ 100 mls/hr Q24H IV Last administered on 10/28/16t 22:23; Start 10/28/16 at 23:00; Stop 10/29/16 at 09:41; Status DC Micafungin Sodium 100 mg/Dextrose 100 ml @ 100 mls/hr Q24H IV ; Start 10/29/16 at 10:00 Linezolid (Zyvox) 600 mg BID PO ; Start 10/29/16 at 10:00 Piperacillin Sod/ Tazobactam Sod 3.375 gm/Sodium Chloride 50 ml @ 100 mls/hr Q6HRS IV ; Start 10/29/16 at 10:00 Active Scripts Active Hydrocodone-Apap 5-325 (Hydrocodone Bit/Acetaminophen) 1 Each Tablet 1 Tab PO PRN Q6HRS PRN Reported Zyrtec (Cetirizine Hcl) 10 Mg Tablet 1 Tab PO DAILY Vesicare (Solifenacin Succinate) 5 Mg Tablet 1 Tab PO DAILY Flonase Allergy Relief (Fluticasone Propionate) 9.9 Ml Putnam.susp 2 Sprays NS BID Bupropion Xl (Bupropion Hcl) 300 Mg Tab.er.24h 1 Tab PO DAILYWBKFT Melatonin 5 Mg Tablet 5 Mg PO PRN QHS PRN Gabapentin 100 Mg Capsule 200 Mg PO QHS Nitrostat (Nitroglycerin) 0.4 Mg Tab.subl 1 Tab SL UD Aspir 81 (Aspirin) 81 Mg Tablet.dr 1 Tab PO HS Glucosamine (Glucosamine Sulfate 2KCL) 1,000 Mg Tablet 1,000 Mg PO BID Docusate Sodium 100 Mg Capsule 1 Cap PO DAILY Vitamin C 500 Mg/15 Ml Liquid (Vit C/Ascorbate Ca/Ascorb Sod) 500 Mg/15 Ml Liquid 500 Mg PO BID Multi Vitamin Daily (Multivitamin) 1 Each Tablet 1 Each PO Caltrate 600 + D Tablet (Calcium Carbonate/Vitamin D3) 1 Each Tablet 1 Each PO BID Loratadine 10 Mg Tablet 1 Tab PO DAILY Hydrocodone-Apap 10-300 (Hydrocodone Bit/Acetaminophen) 1 Each Tablet 2 Tab PO PRN Q6HRS PRN Fluoxetine Hcl 20 Mg Capsule 1 Cap PO HS Ranitidine Hcl 150 Mg Capsule 1 Cap PO HS Pantoprazole Sodium 40 Mg Tablet.dr 20 Mg PO DAILY Lisinopril 2.5 Mg Tablet 1 Tab PO BID Finasteride 5 Mg Tablet 1 Tab PO DAILY Alfuzosin Hcl 10 Mg Tab.er.24h 1 Tab PO DAILY Crestor (Rosuvastatin Calcium) 5 Mg Tablet 5 Mg PO HS Clopidogrel (Clopidogrel Bisulfate) 75 Mg Tablet 1 Tab PO DAILY Carvedilol 6.25 Mg Tablet 1 Tab PO BID Vitals/I & O Vital Sign - Last 24 Hours 10/28/16 10/28/16 10/28/16 10/28/16 18:00 18:52 20:59 21:51 Temp 98.6 97.2 98.6 97.2 Pulse 76 76 66 69 Resp 18 20 20 B/P (MAP) 157/70 (99) 141/94 (110) 140/85 (103) 136/84 Pulse Ox 93 94 95 O2 Delivery Room Air Room Air 10/28/16 10/28/16 10/29/16 10/29/16 21:56 23:48 03:20 03:24 Temp 97.3 97.1 97.3 97.1 Pulse 69 71 59 Resp 20 18 B/P (MAP) 136/84 116/69 (85) Pulse Ox 94 96 O2 Delivery Room Air Room Air Room Air 10/29/16 10/29/16 10/29/16 10/29/16 04:20 07:37 09:12 09:12 Temp 96.8 96.8 Pulse 59 59 59 Resp 18 18 B/P (MAP) 117/68 (84) 117/68 117/68 Pulse Ox 96 93 O2 Delivery Room Air Room Air Intake and Output 10/28/16 10/28/16 10/29/16 15:00 23:00 07:00 Intake Total 110 ml 1630 ml Output Total 675 ml Balance 110 ml 955 ml KENAN CURRIE MD October 29, 2016 10:00
[2016-10-29 10:30] VITALS: BP 106/66
[2016-10-29] MEDS: MICAFUNGIN 100 MG in IV DEXTROSE 5% 100 ML IV SCH (10:41)
[2016-10-29] MEDS: LINEZOLID 600 MG TABLET PO SCH ×2 (10:45→20:44)
[2016-10-29] MEDS: PIPERACILLIN/TAZOBACTAM 3.375 GM in IV NORMAL SALINE 50ML 50 ML IV SCH ×2 (11:42→16:52)
[2016-10-29] MEDS: NYSTATIN TOPICAL POWDER 15GM BOTTLE. TP SCH ×2 (11:42→20:45)
[2016-10-29 14:30] VITALS: BP 97/60
[2016-10-29 19:00] VITALS: BP 106/72
[2016-10-29] MEDS: ATORVASTATIN CALCIUM 20 MG TABLET PO SCH (20:44)
[2016-10-29] MEDS: FAMOTIDINE 20 MG TABLET. PO SCH (20:44)
[2016-10-29] MEDS: GABAPENTIN 100 MG CAPSULE. PO SCH (20:44)
[2016-10-29] MEDS: FLUoxetine HCL 20 MG CAPSULE PO SCH (20:45)
[2016-10-29] MEDS ORDERED: FLUCONAZOLE 100 MG TABLET. PO SCH (21:00)
[2016-10-29 22:41] VITALS: BP 138/87
[2016-10-30] MEDS: PIPERACILLIN/TAZOBACTAM 3.375 GM in IV NORMAL SALINE 50ML 50 ML IV SCH ×5 (00:05→23:59)
--- NOTE | 2016-10-30 02:31 | CONS ---
DATE OF CONSULTATION: 10/29/2016 ROOM: 532 REQUESTING PHYSICIAN: Nadege Burris M.D. REASON FOR CONSULTATION: Yeast and groin cellulitis. HISTORY OF PRESENT ILLNESS: The patient is a very pleasant 86-year-old gentleman who lives in a [facility], unfortunately is a very poor historian. He does have a colostomy. He thinks this has been there for 11 years, but he is uncertain why he had it. He denies knowing any cancer. Denies any perforations, but apparently he has been having complications with what was concerned be a leak of his ostomy as it become more red and inflamed in his right groin and trunk area. In reviewing his records from [facility] he had previously received some fluconazole as well as some nystatin, but he was sent over there secondary to worsening of the redness as it become more painful as well. Apparently, he was having complications with this on 09/19/2016 according to the records as he was admitted with fluconazole at that time. He was brought to the Emergency Room, started on clindamycin and given some fluconazole as well. Currently, he is sitting up on the side of bed, working with physical therapy. Denies any fevers, chills or sweats that he knows of. No headaches, sore throat, cough or chest pain. He has a [place] in place, uncertain how long that has been there. Denies any falls or rashes in other places of his body. PAST MEDICAL HISTORY: Positive for severe dementia, history of previous falls, history of previous yeast, has depression, hyperlipidemia, hypertension and cardiomyopathy. Also had history of previous facial swelling with potential tooth abscess, allergic rhinitis, BPH. He had the diverticulitis that was the cause for his ostomy. Also past medical history is positive for ulcerative colitis. PAST SURGICAL HISTORY: Positive for right total knee replacement, tonsillectomy, colectomy, history of diverticulitis, CABG and AICD placement, vasectomy, uvulectomy and bone graft. REVIEW OF SYSTEMS: Otherwise negative except for as mentioned above. SOCIAL HISTORY: Again, he is in a long term facility. No recent tobacco or alcohol. ALLERGIES: Listed as SULFA, UNCERTAIN WHAT HAPPENS WHEN HE TAKES THIS, MESALAMINES, , BACITRACIN, NEOMYCIN, POLYMYXIN. FAMILY HISTORY: Noncontributory. CURRENT MEDICATIONS: Include fluconazole, clindamycin, Lipitor, vitamin C, Coreg, Zyrtec, Pepcid, Proscar, Prozac, Neurontin, insulin, Prinivil, Flomax. Other meds are available and reviewed in the chart. PHYSICAL EXAMINATION: VITAL SIGNS: He is afebrile, temperature is 96.8, pulse 59, respirations 18, blood pressure 117/68, satting 93% on room air. CONSTITUTIONAL: He is a pleasant gentleman. He is cooperative. He is in no acute distress. He is sitting up on the side of the bed. HEENT: Pupils equal and reactive. He has normal conjunctivae. Oral cavity, oropharynx is clear. NECK: Supple. No JVD. LUNGS: Clear to auscultation. HEART: S1, S2. ABDOMEN: He has ostomy on his right lower quadrant, which appears to be healthy. There is no apparent leakage at this time, but he does have induration, erythema and pain around the bag, which extends down into his groin on to his right medial thigh and upon to his right flank area also has some perineal excoriation on both CVA areas, but no gross bleeding. He also have [place] is in place. EXTREMITIES: Without clubbing, cyanosis. He has trace edema. SKIN: Without generalized signs of rash. NEUROLOGIC: He moves all extremities, pleasant, but very forgetful. PSYCHIATRIC: Affect is appropriate. LABORATORY VALUES: White count on arrival was 11, currently 9.9, hemoglobin 13.6, platelets 187, neutrophils 48, lymphs 22. Creatinine 1.1, glucose 74. Normal liver function study test on arrival. There are no radiological studies. IMPRESSION: 1. Right flank/groin cellulitis. 2. Tinea. 3. Chronic kidney disease. 4. SULFA allergy, questionable reaction of questionable ostomy leak although appears healthy at this point. RECOMMENDATIONS: We will begin micafungin as he has had history of recurrent fluconazole use to be working or discontinue the clindamycin as well begin Zyvox and Zosyn. Follow up on labs and cultures, await surgical evaluation. I did discuss with Krystyna Michael. I did review [facility] notes. Thank you for allowing me to participate in the patient's care. If you have any questions, please do not hesitate to contact me. KATHY MORALES MD DR: Uma JOB#: [id number] / [id number]
[2016-10-30 02:56] VITALS: BP 131/83
[2016-10-30 03:58] LABS: BASO # 0.1 x10^3/uL (0.0-0.2); BASO % 1 % (0-3); EOS % 14 % (0-3); HEMATOCRIT 39.9 % (39.0-53.0); HEMOGLOBIN 13.1 g/dL (13.0-17.5); LYMPH # 2.4 x10^3/uL (1.0-4.8); LYMPH % 27 % (24-48); MEAN CORPUSCULAR HEMOGLOBIN 33 pg (25-35); MEAN CORPUSCULAR HGB CONC 33 g/dL (31-37); MEAN CORPUSCULAR VOLUME 101 fL (79-100); MONO % 15 % (0-9); NEUT % 43 % (31-73); PLATELET COUNT 181 x10^3/uL (140-400); RED BLOOD COUNT 3.96 x10^6/uL (4.30-5.70); RED CELL DISTRIBUTION WIDTH 14.3 % (11.5-14.5); WHITE BLOOD COUNT 8.7 x10^3/uL (4.0-11.0)
[2016-10-30 04:16] LABS: CALCIUM 8.7 mg/dL (8.5-10.1); GFR 71.2; POTASSIUM 3.8 mmol/L (3.5-5.1)
[2016-10-30 07:00] VITALS: BP 144/94
[2016-10-30] MEDS: INSULIN ASPART 300 UNITS/3 ML INSULN.PEN SQ SCH ×3 (07:54→17:00)
--- NOTE | 2016-10-30 08:39 | PDOC ---
Infectious Disease Note Subjective Subjective No complaints ROS ROS unreliable but denies pain GEN: Denies fevers, chills, sweats HEENT: Denies blurred vision, sore throat CV: Denies chest pain RESP: Denies shortness of air, cough GI: Denies n/v/d NEURO: Denies confusion, dizziness MSK: Denies weakness, joint pain/swelling Vital Sign Vital Signs Vital Signs Date Time Temp Pulse Resp B/P (MAP) Pulse Ox O2 Delivery O2 Flow Rate FiO2 10/30/16 02:56 97.7 61 18 131/83 (99) 95 Room Air 97.7 Physical Exam PHYSICAL EXAM GENERAL: NAD, Alert, in bed HEENT: PERRL, OC/OP - clear NECK: Supple, no JVD, no LN LUNGS: Clear HEART: S1S2, no gallop, no murmur ABD: Soft, NT, no organomegaly, no rebound, Ostomy - clean EXT: trace edema, no cyanosis 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 Abd/groin erythema much improved IV: ok Labs Lab Laboratory Tests Test 10/29/16 11:33 10/29/16 16:38 10/29/16 20:48 10/30/16 03:15 Glucose (Fingerstick) 127 mg/dL (70-99) 79 mg/dL (70-99) 92 mg/dL (70-99) White Blood Count 8.7 x10^3/uL (4.0-11.0) Red Blood Count 3.96 x10^6/uL (4.30-5.70) Hemoglobin 13.1 g/dL (13.0-17.5) Hematocrit 39.9 % (39.0-53.0) Mean Corpuscular Volume 101 fL (79-100) Mean Corpuscular Hemoglobin 33 pg (25-35) Mean Corpuscular Hemoglobin Concent 33 g/dL (31-37) Red Cell Distribution Width 14.3 % (11.5-14.5) Platelet Count 181 x10^3/uL (140-400) Neutrophils (%) (Auto) 43 % (31-73) Lymphocytes (%) (Auto) 27 % (24-48) Monocytes (%) (Auto) 15 % (0-9) Eosinophils (%) (Auto) 14 % (0-3) Basophils (%) (Auto) 1 % (0-3) Neutrophils # (Auto) 3.7 x10^3uL (1.8-7.7) Lymphocytes # (Auto) 2.4 x10^3/uL (1.0-4.8) Monocytes # (Auto) 1.3 x10^3/uL (0.0-1.1) Eosinophils # (Auto) 1.2 x10^3/uL (0.0-0.7) Basophils # (Auto) 0.1 x10^3/uL (0.0-0.2) Sodium Level 140 mmol/L (136-145) Potassium Level 3.8 mmol/L (3.5-5.1) Chloride Level 107 mmol/L (98-107) Carbon Dioxide Level 25 mmol/L (21-32) Anion Gap 8 (6-14) Blood Urea Nitrogen 14 mg/dL (8-26) Creatinine 1.0 mg/dL (0.7-1.3) Estimated GFR (Cockcroft-Gault) 71.2 Glucose Level 80 mg/dL (70-99) Calcium Level 8.7 mg/dL (8.5-10.1) Test 10/30/16 07:41 Glucose (Fingerstick) 90 mg/dL (70-99) Objective Assessment Right flank/groin cellulitis - better Tinea CKD Sulfa allergy ? reaction ? ostomy leak C-diff/MRSA screen - neg Plan Plan of Care Cont Micafungin/Zosyn/Zyvox - taper soon F/u labs and cults KATHY MORALES MD October 30, 2016 08:39
[2016-10-30] MEDS: DOCUSATE SODIUM 100 MG CAPSULE. PO SCH (09:00)
[2016-10-30] MEDS: CALCIUM CARB/VIT D3 500/200 TABLET. PO SCH ×2 (09:10→17:03)
[2016-10-30] MEDS: CETIRIZINE HCL 10 MG TABLET. PO SCH (09:11)
[2016-10-30] MEDS: ASCORBIC ACID 500 MG TABLET PO SCH ×2 (09:11→17:03)
[2016-10-30] MEDS: CARVEDILOL 6.25 MG TABLET. PO SCH ×2 (09:11→17:12)
[2016-10-30] MEDS: NYSTATIN TOPICAL POWDER 15GM BOTTLE. TP SCH ×2 (09:12→21:00)
[2016-10-30] MEDS: TAMSULOSIN 0.4 MG CAP.ER.24H. PO SCH (09:12)
[2016-10-30] MEDS: FINASTERIDE 5 MG TABLET. PO SCH (09:12)
[2016-10-30] MEDS: LISINOPRIL 2.5 MG TABLET PO SCH ×2 (09:12→20:44)
[2016-10-30] MEDS: LINEZOLID 600 MG TABLET PO SCH ×2 (09:12→20:44)
[2016-10-30] MEDS: MICAFUNGIN 100 MG in IV DEXTROSE 5% 100 ML IV SCH (09:14)
--- NOTE | 2016-10-30 09:35 | PDOC ---
SURGICAL PROGRESS NOTE Subjective pain to right foot, nursing putting on slipper socks Vital Signs Vital Signs Date Time Temp Pulse Resp B/P (MAP) Pulse Ox O2 Delivery O2 Flow Rate FiO2 10/30/16 09:12 60 144/94 10/30/16 02:56 97.7 18 95 Room Air 97.7 I&O Intake and Output 10/30/16 07:00 Intake Total 1690 ml Output Total 1350 ml Balance 340 ml Intake Oral 540 ml IV Total 1150 ml Output Urine Total 1200 ml Stool Total 150 ml # Bowel Movements 1 General: Cooperative, No acute distress Abdomen: Soft, Other (erythema to right groin, stoma pink, no leaking ) Labs Laboratory Tests Test 10/28/16 17:25 10/28/16 22:38 10/29/16 04:50 10/29/16 06:00 White Blood Count 11.0 x10^3/uL (4.0-11.0) 9.9 x10^3/uL (4.0-11.0) Red Blood Count 4.75 x10^6/uL (4.30-5.70) 4.04 x10^6/uL (4.30-5.70) Hemoglobin 15.8 g/dL (13.0-17.5) 13.6 g/dL (13.0-17.5) Hematocrit 47.4 % (39.0-53.0) 39.6 % (39.0-53.0) Mean Corpuscular Volume 100 fL (79-100) 98 fL (79-100) Mean Corpuscular Hemoglobin 33 pg (25-35) 34 pg (25-35) Mean Corpuscular Hemoglobin Concent 33 g/dL (31-37) 34 g/dL (31-37) Red Cell Distribution Width 14.1 % (11.5-14.5) 14.1 % (11.5-14.5) Platelet Count 210 x10^3/uL (140-400) 187 x10^3/uL (140-400) Neutrophils (%) (Auto) 52 % (31-73) 48 % (31-73) Lymphocytes (%) (Auto) 25 % (24-48) 22 % (24-48) Monocytes (%) (Auto) 17 % (0-9) 20 % (0-9) Eosinophils (%) (Auto) 5 % (0-3) 9 % (0-3) Basophils (%) (Auto) 1 % (0-3) 1 % (0-3) Neutrophils # (Auto) 5.7 x10^3uL (1.8-7.7) 4.8 x10^3uL (1.8-7.7) Lymphocytes # (Auto) 2.8 x10^3/uL (1.0-4.8) 2.2 x10^3/uL (1.0-4.8) Monocytes # (Auto) 1.9 x10^3/uL (0.0-1.1) 2.0 x10^3/uL (0.0-1.1) Eosinophils # (Auto) 0.6 x10^3/uL (0.0-0.7) 0.9 x10^3/uL (0.0-0.7) Basophils # (Auto) 0.1 x10^3/uL (0.0-0.2) 0.1 x10^3/uL (0.0-0.2) Segmented Neutrophils % 51 % (35-66) Lymphocytes % 26 % (24-48) Monocytes % 13 % (0-10) Eosinophils % 10 % (0-5) Platelet Estimate Adequate (ADEQUATE) Erythrocyte Sedimentation Rate 36 (0-15) Sodium Level 137 mmol/L (136-145) 141 mmol/L (136-145) Potassium Level 4.7 mmol/L (3.5-5.1) 3.8 mmol/L (3.5-5.1) Chloride Level 102 mmol/L (98-107) 107 mmol/L (98-107) Carbon Dioxide Level 23 mmol/L (21-32) 26 mmol/L (21-32) Anion Gap 12 (6-14) 8 (6-14) Blood Urea Nitrogen 25 mg/dL (8-26) 21 mg/dL (8-26) Creatinine 1.2 mg/dL (0.7-1.3) 1.1 mg/dL (0.7-1.3) Estimated GFR (Cockcroft-Gault) 57.7 63.8 BUN/Creatinine Ratio 21 (6-20) Glucose Level 86 mg/dL (70-99) 74 mg/dL (70-99) Calcium Level 10.0 mg/dL (8.5-10.1) 8.8 mg/dL (8.5-10.1) Total Bilirubin 0.7 mg/dL (0.2-1.0) Aspartate Amino Transf (AST/SGOT) 34 U/L (15-37) Alanine Aminotransferase (ALT/SGPT) 27 U/L (16-63) Alkaline Phosphatase 66 U/L (46-116) Total Protein 8.9 g/dL (6.4-8.2) Albumin 3.5 g/dL (3.4-5.0) Albumin/Globulin Ratio 0.6 (1.0-1.7) Nasal Screen MRSA (PCR) Negative (Negative) Clostridium difficile Toxin (PCR) Negative (Negative) Test 10/29/16 07:41 10/29/16 11:33 10/29/16 16:38 10/29/16 20:48 Glucose (Fingerstick) 79 mg/dL (70-99) 127 mg/dL (70-99) 79 mg/dL (70-99) 92 mg/dL (70-99) Test 10/30/16 03:15 10/30/16 07:41 White Blood Count 8.7 x10^3/uL (4.0-11.0) Red Blood Count 3.96 x10^6/uL (4.30-5.70) Hemoglobin 13.1 g/dL (13.0-17.5) Hematocrit 39.9 % (39.0-53.0) Mean Corpuscular Volume 101 fL (79-100) Mean Corpuscular Hemoglobin 33 pg (25-35) Mean Corpuscular Hemoglobin Concent 33 g/dL (31-37) Red Cell Distribution Width 14.3 % (11.5-14.5) Platelet Count 181 x10^3/uL (140-400) Neutrophils (%) (Auto) 43 % (31-73) Lymphocytes (%) (Auto) 27 % (24-48) Monocytes (%) (Auto) 15 % (0-9) Eosinophils (%) (Auto) 14 % (0-3) Basophils (%) (Auto) 1 % (0-3) Neutrophils # (Auto) 3.7 x10^3uL (1.8-7.7) Lymphocytes # (Auto) 2.4 x10^3/uL (1.0-4.8) Monocytes # (Auto) 1.3 x10^3/uL (0.0-1.1) Eosinophils # (Auto) 1.2 x10^3/uL (0.0-0.7) Basophils # (Auto) 0.1 x10^3/uL (0.0-0.2) Sodium Level 140 mmol/L (136-145) Potassium Level 3.8 mmol/L (3.5-5.1) Chloride Level 107 mmol/L (98-107) Carbon Dioxide Level 25 mmol/L (21-32) Anion Gap 8 (6-14) Blood Urea Nitrogen 14 mg/dL (8-26) Creatinine 1.0 mg/dL (0.7-1.3) Estimated GFR (Cockcroft-Gault) 71.2 Glucose Level 80 mg/dL (70-99) Calcium Level 8.7 mg/dL (8.5-10.1) Glucose (Fingerstick) 90 mg/dL (70-99) Laboratory Tests Test 10/29/16 11:33 10/29/16 16:38 10/29/16 20:48 10/30/16 03:15 Glucose (Fingerstick) 127 mg/dL (70-99) 79 mg/dL (70-99) 92 mg/dL (70-99) White Blood Count 8.7 x10^3/uL (4.0-11.0) Red Blood Count 3.96 x10^6/uL (4.30-5.70) Hemoglobin 13.1 g/dL (13.0-17.5) Hematocrit 39.9 % (39.0-53.0) Mean Corpuscular Volume 101 fL (79-100) Mean Corpuscular Hemoglobin 33 pg (25-35) Mean Corpuscular Hemoglobin Concent 33 g/dL (31-37) Red Cell Distribution Width 14.3 % (11.5-14.5) Platelet Count 181 x10^3/uL (140-400) Neutrophils (%) (Auto) 43 % (31-73) Lymphocytes (%) (Auto) 27 % (24-48) Monocytes (%) (Auto) 15 % (0-9) Eosinophils (%) (Auto) 14 % (0-3) Basophils (%) (Auto) 1 % (0-3) Neutrophils # (Auto) 3.7 x10^3uL (1.8-7.7) Lymphocytes # (Auto) 2.4 x10^3/uL (1.0-4.8) Monocytes # (Auto) 1.3 x10^3/uL (0.0-1.1) Eosinophils # (Auto) 1.2 x10^3/uL (0.0-0.7) Basophils # (Auto) 0.1 x10^3/uL (0.0-0.2) Sodium Level 140 mmol/L (136-145) Potassium Level 3.8 mmol/L (3.5-5.1) Chloride Level 107 mmol/L (98-107) Carbon Dioxide Level 25 mmol/L (21-32) Anion Gap 8 (6-14) Blood Urea Nitrogen 14 mg/dL (8-26) Creatinine 1.0 mg/dL (0.7-1.3) Estimated GFR (Cockcroft-Gault) 71.2 Glucose Level 80 mg/dL (70-99) Calcium Level 8.7 mg/dL (8.5-10.1) Test 10/30/16 07:41 Glucose (Fingerstick) 90 mg/dL (70-99) Problem List Problems Medical Problems: (1) Cellulitis Status: Acute Assessment/Plan d/w wound care yesterday, appears trouble with seal at home, likely due to some confusion, needs more assistance with ostomy continue wound care no surgical plans 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
--- NOTE | 2016-10-30 09:47 | PDOC ---
PROGRESS NOTES Chief Complaint Chief Complaint 1. Cellulitis, fungal and possibly bacterial in groin/genital area 2. Indwelling colostomy bag, 3. Dementia, mod 4. [facility] resident, hx falls, gen weakness, FTT 5. Mod malnutrition 6. Hx CAD: EF 30%, chronic systolic CHF 7. HTN, HLP on statin History of Present Illness History of Present Illness looks better, less pain cont wound care OOB to chair wilkinson monitor labs PT and OT ostomy management Vitals Vitals Vital Signs Date Time Temp Pulse Resp B/P (MAP) Pulse Ox O2 Delivery O2 Flow Rate FiO2 10/30/16 09:41 18 Room Air 10/30/16 09:12 60 144/94 10/30/16 07:00 97.5 92 97.5 Physical Exam General: Cooperative, No acute distress Heart: Regular rate, Normal S1, Normal S2, No murmurs Lungs: Clear Abdomen: Soft, Other (erythema to right groin, stoma pink, no leaking ) Extremities: No clubbing, No cyanosis Skin: Other Labs LABS Laboratory Tests Test 10/29/16 11:33 10/29/16 16:38 10/29/16 20:48 10/30/16 03:15 Glucose (Fingerstick) 127 mg/dL (70-99) 79 mg/dL (70-99) 92 mg/dL (70-99) White Blood Count 8.7 x10^3/uL (4.0-11.0) Red Blood Count 3.96 x10^6/uL (4.30-5.70) Hemoglobin 13.1 g/dL (13.0-17.5) Hematocrit 39.9 % (39.0-53.0) Mean Corpuscular Volume 101 fL (79-100) Mean Corpuscular Hemoglobin 33 pg (25-35) Mean Corpuscular Hemoglobin Concent 33 g/dL (31-37) Red Cell Distribution Width 14.3 % (11.5-14.5) Platelet Count 181 x10^3/uL (140-400) Neutrophils (%) (Auto) 43 % (31-73) Lymphocytes (%) (Auto) 27 % (24-48) Monocytes (%) (Auto) 15 % (0-9) Eosinophils (%) (Auto) 14 % (0-3) Basophils (%) (Auto) 1 % (0-3) Neutrophils # (Auto) 3.7 x10^3uL (1.8-7.7) Lymphocytes # (Auto) 2.4 x10^3/uL (1.0-4.8) Monocytes # (Auto) 1.3 x10^3/uL (0.0-1.1) Eosinophils # (Auto) 1.2 x10^3/uL (0.0-0.7) Basophils # (Auto) 0.1 x10^3/uL (0.0-0.2) Sodium Level 140 mmol/L (136-145) Potassium Level 3.8 mmol/L (3.5-5.1) Chloride Level 107 mmol/L (98-107) Carbon Dioxide Level 25 mmol/L (21-32) Anion Gap 8 (6-14) Blood Urea Nitrogen 14 mg/dL (8-26) Creatinine 1.0 mg/dL (0.7-1.3) Estimated GFR (Cockcroft-Gault) 71.2 Glucose Level 80 mg/dL (70-99) Calcium Level 8.7 mg/dL (8.5-10.1) Test 10/30/16 07:41 Glucose (Fingerstick) 90 mg/dL (70-99) Assessment and Plan Assessmemt and Plan Problems Medical Problems: (1) Cellulitis Status: Acute Problems: Comment Review of Relevant I have reviewed the following items flaco (where applicable) has been applied. Labs Laboratory Tests Test 10/28/16 17:25 10/28/16 22:38 10/29/16 04:50 10/29/16 06:00 White Blood Count 11.0 x10^3/uL (4.0-11.0) 9.9 x10^3/uL (4.0-11.0) Red Blood Count 4.75 x10^6/uL (4.30-5.70) 4.04 x10^6/uL (4.30-5.70) Hemoglobin 15.8 g/dL (13.0-17.5) 13.6 g/dL (13.0-17.5) Hematocrit 47.4 % (39.0-53.0) 39.6 % (39.0-53.0) Mean Corpuscular Volume 100 fL (79-100) 98 fL (79-100) Mean Corpuscular Hemoglobin 33 pg (25-35) 34 pg (25-35) Mean Corpuscular Hemoglobin Concent 33 g/dL (31-37) 34 g/dL (31-37) Red Cell Distribution Width 14.1 % (11.5-14.5) 14.1 % (11.5-14.5) Platelet Count 210 x10^3/uL (140-400) 187 x10^3/uL (140-400) Neutrophils (%) (Auto) 52 % (31-73) 48 % (31-73) Lymphocytes (%) (Auto) 25 % (24-48) 22 % (24-48) Monocytes (%) (Auto) 17 % (0-9) 20 % (0-9) Eosinophils (%) (Auto) 5 % (0-3) 9 % (0-3) Basophils (%) (Auto) 1 % (0-3) 1 % (0-3) Neutrophils # (Auto) 5.7 x10^3uL (1.8-7.7) 4.8 x10^3uL (1.8-7.7) Lymphocytes # (Auto) 2.8 x10^3/uL (1.0-4.8) 2.2 x10^3/uL (1.0-4.8) Monocytes # (Auto) 1.9 x10^3/uL (0.0-1.1) 2.0 x10^3/uL (0.0-1.1) Eosinophils # (Auto) 0.6 x10^3/uL (0.0-0.7) 0.9 x10^3/uL (0.0-0.7) Basophils # (Auto) 0.1 x10^3/uL (0.0-0.2) 0.1 x10^3/uL (0.0-0.2) Segmented Neutrophils % 51 % (35-66) Lymphocytes % 26 % (24-48) Monocytes % 13 % (0-10) Eosinophils % 10 % (0-5) Platelet Estimate Adequate (ADEQUATE) Erythrocyte Sedimentation Rate 36 (0-15) Sodium Level 137 mmol/L (136-145) 141 mmol/L (136-145) Potassium Level 4.7 mmol/L (3.5-5.1) 3.8 mmol/L (3.5-5.1) Chloride Level 102 mmol/L (98-107) 107 mmol/L (98-107) Carbon Dioxide Level 23 mmol/L (21-32) 26 mmol/L (21-32) Anion Gap 12 (6-14) 8 (6-14) Blood Urea Nitrogen 25 mg/dL (8-26) 21 mg/dL (8-26) Creatinine 1.2 mg/dL (0.7-1.3) 1.1 mg/dL (0.7-1.3) Estimated GFR (Cockcroft-Gault) 57.7 63.8 BUN/Creatinine Ratio 21 (6-20) Glucose Level 86 mg/dL (70-99) 74 mg/dL (70-99) Calcium Level 10.0 mg/dL (8.5-10.1) 8.8 mg/dL (8.5-10.1) Total Bilirubin 0.7 mg/dL (0.2-1.0) Aspartate Amino Transf (AST/SGOT) 34 U/L (15-37) Alanine Aminotransferase (ALT/SGPT) 27 U/L (16-63) Alkaline Phosphatase 66 U/L (46-116) Total Protein 8.9 g/dL (6.4-8.2) Albumin 3.5 g/dL (3.4-5.0) Albumin/Globulin Ratio 0.6 (1.0-1.7) Nasal Screen MRSA (PCR) Negative (Negative) Clostridium difficile Toxin (PCR) Negative (Negative) Test 10/29/16 07:41 10/29/16 11:33 10/29/16 16:38 10/29/16 20:48 Glucose (Fingerstick) 79 mg/dL (70-99) 127 mg/dL (70-99) 79 mg/dL (70-99) 92 mg/dL (70-99) Test 10/30/16 03:15 10/30/16 07:41 White Blood Count 8.7 x10^3/uL (4.0-11.0) Red Blood Count 3.96 x10^6/uL (4.30-5.70) Hemoglobin 13.1 g/dL (13.0-17.5) Hematocrit 39.9 % (39.0-53.0) Mean Corpuscular Volume 101 fL (79-100) Mean Corpuscular Hemoglobin 33 pg (25-35) Mean Corpuscular Hemoglobin Concent 33 g/dL (31-37) Red Cell Distribution Width 14.3 % (11.5-14.5) Platelet Count 181 x10^3/uL (140-400) Neutrophils (%) (Auto) 43 % (31-73) Lymphocytes (%) (Auto) 27 % (24-48) Monocytes (%) (Auto) 15 % (0-9) Eosinophils (%) (Auto) 14 % (0-3) Basophils (%) (Auto) 1 % (0-3) Neutrophils # (Auto) 3.7 x10^3uL (1.8-7.7) Lymphocytes # (Auto) 2.4 x10^3/uL (1.0-4.8) Monocytes # (Auto) 1.3 x10^3/uL (0.0-1.1) Eosinophils # (Auto) 1.2 x10^3/uL (0.0-0.7) Basophils # (Auto) 0.1 x10^3/uL (0.0-0.2) Sodium Level 140 mmol/L (136-145) Potassium Level 3.8 mmol/L (3.5-5.1) Chloride Level 107 mmol/L (98-107) Carbon Dioxide Level 25 mmol/L (21-32) Anion Gap 8 (6-14) Blood Urea Nitrogen 14 mg/dL (8-26) Creatinine 1.0 mg/dL (0.7-1.3) Estimated GFR (Cockcroft-Gault) 71.2 Glucose Level 80 mg/dL (70-99) Calcium Level 8.7 mg/dL (8.5-10.1) Glucose (Fingerstick) 90 mg/dL (70-99) Laboratory Tests Test 10/29/16 11:33 10/29/16 16:38 10/29/16 20:48 10/30/16 03:15 Glucose (Fingerstick) 127 mg/dL (70-99) 79 mg/dL (70-99) 92 mg/dL (70-99) White Blood Count 8.7 x10^3/uL (4.0-11.0) Red Blood Count 3.96 x10^6/uL (4.30-5.70) Hemoglobin 13.1 g/dL (13.0-17.5) Hematocrit 39.9 % (39.0-53.0) Mean Corpuscular Volume 101 fL (79-100) Mean Corpuscular Hemoglobin 33 pg (25-35) Mean Corpuscular Hemoglobin Concent 33 g/dL (31-37) Red Cell Distribution Width 14.3 % (11.5-14.5) Platelet Count 181 x10^3/uL (140-400) Neutrophils (%) (Auto) 43 % (31-73) Lymphocytes (%) (Auto) 27 % (24-48) Monocytes (%) (Auto) 15 % (0-9) Eosinophils (%) (Auto) 14 % (0-3) Basophils (%) (Auto) 1 % (0-3) Neutrophils # (Auto) 3.7 x10^3uL (1.8-7.7) Lymphocytes # (Auto) 2.4 x10^3/uL (1.0-4.8) Monocytes # (Auto) 1.3 x10^3/uL (0.0-1.1) Eosinophils # (Auto) 1.2 x10^3/uL (0.0-0.7) Basophils # (Auto) 0.1 x10^3/uL (0.0-0.2) Sodium Level 140 mmol/L (136-145) Potassium Level 3.8 mmol/L (3.5-5.1) Chloride Level 107 mmol/L (98-107) Carbon Dioxide Level 25 mmol/L (21-32) Anion Gap 8 (6-14) Blood Urea Nitrogen 14 mg/dL (8-26) Creatinine 1.0 mg/dL (0.7-1.3) Estimated GFR (Cockcroft-Gault) 71.2 Glucose Level 80 mg/dL (70-99) Calcium Level 8.7 mg/dL (8.5-10.1) Test 10/30/16 07:41 Glucose (Fingerstick) 90 mg/dL (70-99) Microbiology 10/28/16 Blood Culture - Preliminary, Resulted NO GROWTH AFTER 1 DAY Medications Current Medications Fentanyl Citrate (Fentanyl 2ml Vial) 50 mcg 1X ONCE IV Last administered on t 17:15; Start 10/28/16 at 17:15; Stop 10/28/16 at 17:17; Status DC Ondansetron HCl (Zofran) 4 mg 1X ONCE IV Last administered on 10/28/16 17:15 ; Start 10/28/16 at 17:15; Stop 10/28/16 at 17:17; Status DC Clindamycin Phosphate 50 ml @ 100 mls/hr 1X ONCE IV Last administered on 10/28 18:51; Start 10/28/16 at 19:30; Stop 10/28/16 at 20:00; Status DC Fluconazole (Diflucan) 150 mg 1X ONCE PO Last administered on 10/28/16 19:20 ; Start 10/28/16 at 19:15; Stop 10/28/16 at 19:16; Status DC Ondansetron HCl (Zofran) 4 mg PRN Q8HRS PRN IV NAUSEA/VOMITING; Start 10/28/16 at 19:15; Stop 10/28/16 at 19:55; Status DC Sodium Chloride 1,000 ml @ 125 mls/hr Q8H IV Last administered on 10/29/16 20 :38; Start 10/28/16 at 19:10; Stop 10/29/16 at 19:09; Status DC Acetaminophen/ Hydrocodone Bitart (Lortab 5/325) 1 tab PRN Q6HRS PRN PO pain Last administered on 10/29/16 03:20; Start 10/28/16 at 19:15; Stop 10/29/16 at 14:50; Status DC Clindamycin Phosphate 50 ml @ 100 mls/hr Q8H IV Last administered on 02:59; Start 10/29/16 at 03:00; Stop 10/29/16 at 09:41; Status DC Ondansetron HCl (Zofran) 4 mg PRN Q6HRS PRN IV NAUSEA/VOMITING; Start 10/28/16 at 19:52; Stop 10/29/16 at 19:51; Status DC Acetaminophen (Tylenol) 500 mg PRN Q6HRS PRN PO MILD PAIN / TEMP; Start at 20:00 Insulin Aspart (NovoLOG) 0-9 UNITS TIDWMEALS SQ ; Start 10/29/16 at 08:00 Dextrose (Dextrose 50%-Water Syringe) 12.5 gm PRN Q15MIN PRN IV SEE COMMENTS; Start 10/28/16 at 20:00 Carvedilol (Coreg) 6.25 mg BIDWMEALS PO Last administered on 10/30/16 09:11; Start 10/28/16 at 20:30 Docusate Sodium (Colace) 100 mg DAILY PO Last administered on 10/29/16 09:11; Start 10/29/16 at 09:00 Finasteride (Proscar) 5 mg DAILY PO Last administered on 10/30/16 09:12; Start 10/29/16 at 09:00 Fluoxetine HCl (PROzac) 20 mg HS PO Last administered on 10/29/16 20:45; Start 10/28/16 at 21:00 Gabapentin (Neurontin) 200 mg QHS PO Last administered on 10/29/16 20:44; Start 10/28/16 at 21:00 Acetaminophen/ Hydrocodone Bitart (Lortab 5/325) 1 tab PRN Q6HRS PRN PO PAIN Last administered on 10/30/16 09:41; Start 10/28/16 at 20:00 Lisinopril (Prinivil) 2.5 mg BID PO Last administered on 10/30/16 09:12; Start 10/28/16 at 21:00 Nitroglycerin (Nitrostat) 0.4 mg PRN Q5MIN PRN SL cp; Start 10/28/16 at 20:00 Pantoprazole Sodium (Protonix) 20 mg DAILYAC PO ; Start 10/29/16 at 07:30; Stop 10/30/16 at 00:47; Status DC Tamsulosin HCl (Flomax) 0.4 mg DAILY PO Last administered on 10/30/16 09:12; Start 10/29/16 at 09:00 Calcium/Vitamin D (Oscal D 500mg/ 200uts) 1 tab BIDWMEALS PO Last administered on 10/30/16 09:10; Start 10/29/16 at 08:00 Non-Formulary Medication 1,000 mg BID PO ; Start 10/28/16 at 21:00; Status UNV Acetaminophen/ Hydrocodone Bitart (Lortab 10/325) 2 tab PRN Q6HRS PRN PO PAIN; Start 10/28/16 at 20:15 Cetirizine HCl (ZyrTEC) 10 mg DAILY PO Last administered on 10/30/16 09:11; Start 10/29/16 at 09:00 Non-Formulary Medication 5 mg PRN QHS PRN PO INSOMNIA; Start 10/28/16 at 20:00 ; Status UNV Famotidine (Pepcid) 20 mg QHS PO Last administered on 10/29/16 20:44; Start at 21:00 Atorvastatin Calcium (Lipitor) 20 mg QHS PO Last administered on 10/29/16 20: 44; Start 10/28/16 at 21:00 Ascorbic Acid (Vitamin C) 500 mg BIDWMEALS PO Last administered on 10/30/16 09 :11; Start 10/29/16 at 08:00 Nystatin (Nystop) 1 willa BID TP Last administered on 10/30/16 09:12; Start at 21:00 Fluconazole/ Sodium Chloride 100 ml @ 100 mls/hr Q24H IV ; Start 10/28/16 at 20 :30; Status Cancel Fluconazole (Diflucan) 200 mg QHS PO ; Start 10/29/16 at 21:00; Stop 10/29/16 at 21:00; Status DC Fluconazole/ Sodium Chloride 100 ml @ 100 mls/hr Q24H IV Last administered on 10/28/16 22:23; Start 10/28/16 at 23:00; Stop 10/29/16 at 09:41; Status DC Micafungin Sodium 100 mg/Dextrose 100 ml @ 100 mls/hr Q24H IV Last administered on 10/30/16 09:14; Start 10/29/16 at 10:00 Linezolid (Zyvox) 600 mg BID PO Last administered on 10/30/16 09:12; Start at 10:00 Piperacillin Sod/ Tazobactam Sod 3.375 gm/Sodium Chloride 50 ml @ 100 mls/hr Q6HRS IV Last administered on 10/30/16 05:29; Start 10/29/16 at 10:00 Active Scripts Active Hydrocodone-Apap 5-325 (Hydrocodone Bit/Acetaminophen) 1 Each Tablet 1 Tab PO PRN Q6HRS PRN Reported Zyrtec (Cetirizine Hcl) 10 Mg Tablet 1 Tab PO DAILY Vesicare (Solifenacin Succinate) 5 Mg Tablet 1 Tab PO DAILY Flonase Allergy Relief (Fluticasone Propionate) 9.9 Ml Thayer.susp 2 Sprays NS BID Bupropion Xl (Bupropion Hcl) 300 Mg Tab.er.24h 1 Tab PO DAILYWBKFT Melatonin 5 Mg Tablet 5 Mg PO PRN QHS PRN Gabapentin 100 Mg Capsule 200 Mg PO QHS Nitrostat (Nitroglycerin) 0.4 Mg Tab.subl 1 Tab SL UD Aspir 81 (Aspirin) 81 Mg Tablet.dr 1 Tab PO HS Glucosamine (Glucosamine Sulfate 2KCL) 1,000 Mg Tablet 1,000 Mg PO BID Docusate Sodium 100 Mg Capsule 1 Cap PO DAILY Vitamin C 500 Mg/15 Ml Liquid (Vit C/Ascorbate Ca/Ascorb Sod) 500 Mg/15 Ml Liquid 500 Mg PO BID Multi Vitamin Daily (Multivitamin) 1 Each Tablet 1 Each PO Caltrate 600 + D Tablet (Calcium Carbonate/Vitamin D3) 1 Each Tablet 1 Each PO BID Loratadine 10 Mg Tablet 1 Tab PO DAILY Hydrocodone-Apap 10-300 (Hydrocodone Bit/Acetaminophen) 1 Each Tablet 2 Tab PO PRN Q6HRS PRN Fluoxetine Hcl 20 Mg Capsule 1 Cap PO HS Ranitidine Hcl 150 Mg Capsule 1 Cap PO HS Pantoprazole Sodium 40 Mg Tablet.dr 20 Mg PO DAILY Lisinopril 2.5 Mg Tablet 1 Tab PO BID Finasteride 5 Mg Tablet 1 Tab PO DAILY Alfuzosin Hcl 10 Mg Tab.er.24h 1 Tab PO DAILY Crestor (Rosuvastatin Calcium) 5 Mg Tablet 5 Mg PO HS Clopidogrel (Clopidogrel Bisulfate) 75 Mg Tablet 1 Tab PO DAILY Carvedilol 6.25 Mg Tablet 1 Tab PO BID Vitals/I & O Vital Sign - Last 24 Hours 10/29/16 10/29/16 10/29/16 10/29/16 10:30 14:30 16:56 19:00 Temp 96.4 97.0 97.7 96.4 97.0 97.7 Pulse 60 60 60 60 Resp 18 18 18 B/P (MAP) 106/66 (79) 97/60 (72) 97/60 106/72 (83) Pulse Ox 95 93 94 O2 Delivery Room Air Room Air Room Air 10/29/16 10/29/16 10/29/16 10/30/16 20:00 20:46 22:41 02:56 Temp 97.7 97.7 97.7 97.7 Pulse 59 62 61 Resp 18 18 B/P (MAP) 113/68 138/87 (104) 131/83 (99) Pulse Ox 94 95 O2 Delivery Room Air Room Air Room Air 10/30/16 10/30/16 10/30/16 10/30/16 07:00 09:11 09:12 09:41 Temp 97.5 97.5 Pulse 60 60 60 Resp 20 18 B/P (MAP) 144/94 (111) 144/60 144/94 Pulse Ox 92 O2 Delivery Room Air Room Air Intake and Output 10/29/16 10/29/16 10/30/16 15:00 23:00 07:00 Intake Total 280 ml 230 ml 1180 ml Output Total 1350 ml Balance 280 ml 230 ml -170 ml KENAN CURRIE MD October 30, 2016 09:46
[2016-10-30 11:00] VITALS: BP 127/82
[2016-10-30 15:00] VITALS: BP 105/64
[2016-10-30 19:00] VITALS: BP 109/73
[2016-10-30] MEDS: GABAPENTIN 100 MG CAPSULE. PO SCH (20:44)
[2016-10-30] MEDS: FAMOTIDINE 20 MG TABLET. PO SCH (20:44)
[2016-10-30] MEDS: FLUoxetine HCL 20 MG CAPSULE PO SCH (20:44)
[2016-10-30] MEDS: ATORVASTATIN CALCIUM 20 MG TABLET PO SCH (20:45)
[2016-10-30] MEDS: HYDROcodone/APAP 10/325 1 TAB TABLET PO PRN (20:46)
[2016-10-30 22:46] VITALS: BP 116/80
[2016-10-31 02:51] VITALS: BP 133/86
[2016-10-31] MEDS: PIPERACILLIN/TAZOBACTAM 3.375 GM in IV NORMAL SALINE 50ML 50 ML IV SCH (06:00)
[2016-10-31 07:00] VITALS: BP 129/89
[2016-10-31] MEDS: INSULIN ASPART 300 UNITS/3 ML INSULN.PEN SQ SCH ×3 (08:00→17:00)
--- NOTE | 2016-10-31 08:12 | PDOC ---
SURGICAL PROGRESS NOTE Subjective Pt without new c/o Vital Signs Vital Signs Date Time Temp Pulse Resp B/P (MAP) Pulse Ox O2 Delivery O2 Flow Rate FiO2 10/31/16 02:51 97.7 60 18 133/86 (102) 91 Room Air 97.7 I&O Intake and Output 10/31/16 07:00 Intake Total 930 ml Output Total 1200 ml Balance -270 ml Intake Oral 680 ml IV Total 250 ml Output Urine Total 950 ml Stool Total 250 ml General: Alert, Cooperative, No acute distress Abdomen: Soft, No tenderness, Other (ostomy viable and functional, no obvious complication, erythema right groin area) Labs Laboratory Tests Test 10/29/16 11:33 10/29/16 16:38 10/29/16 20:48 10/30/16 03:15 Glucose (Fingerstick) 127 mg/dL (70-99) 79 mg/dL (70-99) 92 mg/dL (70-99) White Blood Count 8.7 x10^3/uL (4.0-11.0) Red Blood Count 3.96 x10^6/uL (4.30-5.70) Hemoglobin 13.1 g/dL (13.0-17.5) Hematocrit 39.9 % (39.0-53.0) Mean Corpuscular Volume 101 fL (79-100) Mean Corpuscular Hemoglobin 33 pg (25-35) Mean Corpuscular Hemoglobin Concent 33 g/dL (31-37) Red Cell Distribution Width 14.3 % (11.5-14.5) Platelet Count 181 x10^3/uL (140-400) Neutrophils (%) (Auto) 43 % (31-73) Lymphocytes (%) (Auto) 27 % (24-48) Monocytes (%) (Auto) 15 % (0-9) Eosinophils (%) (Auto) 14 % (0-3) Basophils (%) (Auto) 1 % (0-3) Neutrophils # (Auto) 3.7 x10^3uL (1.8-7.7) Lymphocytes # (Auto) 2.4 x10^3/uL (1.0-4.8) Monocytes # (Auto) 1.3 x10^3/uL (0.0-1.1) Eosinophils # (Auto) 1.2 x10^3/uL (0.0-0.7) Basophils # (Auto) 0.1 x10^3/uL (0.0-0.2) Sodium Level 140 mmol/L (136-145) Potassium Level 3.8 mmol/L (3.5-5.1) Chloride Level 107 mmol/L (98-107) Carbon Dioxide Level 25 mmol/L (21-32) Anion Gap 8 (6-14) Blood Urea Nitrogen 14 mg/dL (8-26) Creatinine 1.0 mg/dL (0.7-1.3) Estimated GFR (Cockcroft-Gault) 71.2 Glucose Level 80 mg/dL (70-99) Calcium Level 8.7 mg/dL (8.5-10.1) Test 10/30/16 07:41 10/30/16 11:16 10/30/16 16:45 10/30/16 20:57 Glucose (Fingerstick) 90 mg/dL (70-99) 100 mg/dL (70-99) 82 mg/dL (70-99) 87 mg/dL (70-99) Test 10/31/16 07:42 Glucose (Fingerstick) 94 mg/dL (70-99) Laboratory Tests Test 10/30/16 11:16 10/30/16 16:45 10/30/16 20:57 10/31/16 07:42 Glucose (Fingerstick) 100 mg/dL (70-99) 82 mg/dL (70-99) 87 mg/dL (70-99) 94 mg/dL (70-99) Problem List Problems Medical Problems: (1) Cellulitis Status: Acute Assessment/Plan cont local wound care no surgical plans for ostomy revision will sign off, but please call for questions Problems: CARSON RESTERPO MD October 31, 2016 08:12
[2016-10-31] MEDS: MICAFUNGIN 100 MG in IV DEXTROSE 5% 100 ML IV SCH (08:48)
[2016-10-31] MEDS: NYSTATIN TOPICAL POWDER 15GM BOTTLE. TP SCH ×2 (08:48→20:16)
[2016-10-31] MEDS: LINEZOLID 600 MG TABLET PO SCH ×2 (08:48→20:10)
[2016-10-31] MEDS: ASCORBIC ACID 500 MG TABLET PO SCH ×2 (08:49→17:28)
[2016-10-31] MEDS: LISINOPRIL 2.5 MG TABLET PO SCH ×2 (08:49→20:10)
[2016-10-31] MEDS: CETIRIZINE HCL 10 MG TABLET. PO SCH (08:49)
[2016-10-31] MEDS: TAMSULOSIN 0.4 MG CAP.ER.24H. PO SCH (08:49)
[2016-10-31] MEDS: CALCIUM CARB/VIT D3 500/200 TABLET. PO SCH ×2 (08:49→17:28)
[2016-10-31] MEDS: CARVEDILOL 6.25 MG TABLET. PO SCH ×2 (08:50→17:29)
[2016-10-31] MEDS: FINASTERIDE 5 MG TABLET. PO SCH (08:50)
--- NOTE | 2016-10-31 08:51 | PDOC ---
Infectious Disease Note Subjective Subjective Doing ok. Had some right foot pain last pm but has now resolved ROS ROS GEN: Denies fevers, chills, sweats HEENT: Denies blurred vision, sore throat CV: Denies chest pain RESP: Denies shortness of air, cough GI: Denies n/v/d NEURO: Denies confusion, dizziness MSK: Denies weakness, joint pain/swelling Vital Sign Vital Signs Vital Signs Date Time Temp Pulse Resp B/P (MAP) Pulse Ox O2 Delivery O2 Flow Rate FiO2 10/31/16 07:00 97.5 57 18 129/89 (102) 94 Room Air 97.5 Physical Exam PHYSICAL EXAM GENERAL: NAD, Alert, in bed. Eating HEENT: PERRL, OC/OP - clear NECK: Supple, no JVD, no LN LUNGS: Clear HEART: S1S2, no gallop, no murmur ABD: Soft, NT, no organomegaly, no rebound, Ostomy - clean EXT: trace edema, no cyanosis, NT X [employer]: Alert, no focal neurologic deficit SKIN: No generalized rash. Abd/groin erythema much improved IV: ok Labs Lab Laboratory Tests Test 10/30/16 11:16 10/30/16 16:45 10/30/16 20:57 10/31/16 07:42 Glucose (Fingerstick) 100 mg/dL (70-99) 82 mg/dL (70-99) 87 mg/dL (70-99) 94 mg/dL (70-99) Objective Assessment Right flank/groin cellulitis - better Tinea CKD Sulfa allergy ? reaction ? ostomy leak - appears intact C-diff/MRSA screen - neg Plan Plan of Care Cont Micafungin and po Zyvox D/c Zosyn and begin Augmentin Cont local wound care F/u labs and cults KATHY MORALES MD October 31, 2016 08:51
[2016-10-31] MEDS: DOCUSATE SODIUM 100 MG CAPSULE. PO SCH (08:59)
[2016-10-31 11:00] VITALS: BP 114/81
[2016-10-31] MEDS: AMOXICILLIN/K CLAV 875/125MG TABLET. PO SCH ×2 (11:57→20:08)
--- NOTE | 2016-10-31 14:43 | PDOC ---
PROGRESS NOTES Chief Complaint Chief Complaint 1. Cellulitis, fungal and possibly bacterial in groin/genital area 2. Indwelling colostomy bag, 3. Dementia, mod 4. SNU resident, hx falls, gen weakness, FTT 5. Mod malnutrition 6. Hx CAD: EF 30%, chronic systolic CHF 7. HTN, HLP on statin History of Present Illness History of Present Illness OOB to chair wilkinson monitor labs PT and OT ostomy management Vitals Vitals Vital Signs Date Time Temp Pulse Resp B/P (MAP) Pulse Ox O2 Delivery O2 Flow Rate FiO2 10/31/16 11:00 97.6 61 19 114/81 (92) 95 Room Air 97.6 Physical Exam General: Alert, Cooperative, No acute distress Heart: Regular rate, Normal S1, Normal S2, No murmurs Lungs: Clear Abdomen: Soft, No tenderness, Other (ostomy viable and functional, no obvious complication, erythema right groin area) Extremities: No clubbing, No cyanosis Skin: Other Labs LABS Laboratory Tests Test 10/30/16 16:45 10/30/16 20:57 10/31/16 07:42 10/31/16 10:38 Glucose (Fingerstick) 82 mg/dL (70-99) 87 mg/dL (70-99) 94 mg/dL (70-99) 103 mg/dL (70-99) Assessment and Plan Assessmemt and Plan Problems Medical Problems: (1) Cellulitis Status: Acute Problems: Comment Review of Relevant I have reviewed the following items flaco (where applicable) has been applied. Labs Laboratory Tests Test 10/29/16 16:38 10/29/16 20:48 10/30/16 03:15 10/30/16 07:41 Glucose (Fingerstick) 79 mg/dL (70-99) 92 mg/dL (70-99) 90 mg/dL (70-99) White Blood Count 8.7 x10^3/uL (4.0-11.0) Red Blood Count 3.96 x10^6/uL (4.30-5.70) Hemoglobin 13.1 g/dL (13.0-17.5) Hematocrit 39.9 % (39.0-53.0) Mean Corpuscular Volume 101 fL (79-100) Mean Corpuscular Hemoglobin 33 pg (25-35) Mean Corpuscular Hemoglobin Concent 33 g/dL (31-37) Red Cell Distribution Width 14.3 % (11.5-14.5) Platelet Count 181 x10^3/uL (140-400) Neutrophils (%) (Auto) 43 % (31-73) Lymphocytes (%) (Auto) 27 % (24-48) Monocytes (%) (Auto) 15 % (0-9) Eosinophils (%) (Auto) 14 % (0-3) Basophils (%) (Auto) 1 % (0-3) Neutrophils # (Auto) 3.7 x10^3uL (1.8-7.7) Lymphocytes # (Auto) 2.4 x10^3/uL (1.0-4.8) Monocytes # (Auto) 1.3 x10^3/uL (0.0-1.1) Eosinophils # (Auto) 1.2 x10^3/uL (0.0-0.7) Basophils # (Auto) 0.1 x10^3/uL (0.0-0.2) Sodium Level 140 mmol/L (136-145) Potassium Level 3.8 mmol/L (3.5-5.1) Chloride Level 107 mmol/L (98-107) Carbon Dioxide Level 25 mmol/L (21-32) Anion Gap 8 (6-14) Blood Urea Nitrogen 14 mg/dL (8-26) Creatinine 1.0 mg/dL (0.7-1.3) Estimated GFR (Cockcroft-Gault) 71.2 Glucose Level 80 mg/dL (70-99) Calcium Level 8.7 mg/dL (8.5-10.1) Test 10/30/16 11:16 10/30/16 16:45 10/30/16 20:57 10/31/16 07:42 Glucose (Fingerstick) 100 mg/dL (70-99) 82 mg/dL (70-99) 87 mg/dL (70-99) 94 mg/dL (70-99) Test 10/31/16 10:38 Glucose (Fingerstick) 103 mg/dL (70-99) Laboratory Tests Test 10/30/16 16:45 10/30/16 20:57 10/31/16 07:42 10/31/16 10:38 Glucose (Fingerstick) 82 mg/dL (70-99) 87 mg/dL (70-99) 94 mg/dL (70-99) 103 mg/dL (70-99) Microbiology 10/28/16 Blood Culture - Preliminary, Resulted NO GROWTH AFTER 2 DAYS Medications Current Medications Fentanyl Citrate (Fentanyl 2ml Vial) 50 mcg 1X ONCE IV Last administered on 17:15; Start 10/28/16 at 17:15; Stop 10/28/16 at 17:17; Status DC Ondansetron HCl (Zofran) 4 mg 1X ONCE IV Last administered on 10/28/16 17:15 ; Start 10/28/16 at 17:15; Stop 10/28/16 at 17:17; Status DC Clindamycin Phosphate 50 ml @ 100 mls/hr 1X ONCE IV Last administered on 10/28 18:51; Start 10/28/16 at 19:30; Stop 10/28/16 at 20:00; Status DC Fluconazole (Diflucan) 150 mg 1X ONCE PO Last administered on 10/28/16 19:20 ; Start 10/28/16 at 19:15; Stop 10/28/16 at 19:16; Status DC Ondansetron HCl (Zofran) 4 mg PRN Q8HRS PRN IV NAUSEA/VOMITING; Start 10/28/16 at 19:15; Stop 10/28/16 at 19:55; Status DC Sodium Chloride 1,000 ml @ 125 mls/hr Q8H IV Last administered on 10/29/16 20 :38; Start 10/28/16 at 19:10; Stop 10/29/16 at 19:09; Status DC Acetaminophen/ Hydrocodone Bitart (Lortab 5/325) 1 tab PRN Q6HRS PRN PO pain Last administered on 10/29/16 03:20; Start 10/28/16 at 19:15; Stop 10/29/16 at 14:50; Status DC Clindamycin Phosphate 50 ml @ 100 mls/hr Q8H IV Last administered on 02:59; Start 10/29/16 at 03:00; Stop 10/29/16 at 09:41; Status DC Ondansetron HCl (Zofran) 4 mg PRN Q6HRS PRN IV NAUSEA/VOMITING; Start 10/28/16 at 19:52; Stop 10/29/16 at 19:51; Status DC Acetaminophen (Tylenol) 500 mg PRN Q6HRS PRN PO MILD PAIN / TEMP Last administered on 10/31/16 05:59; Start 10/28/16 at 20:00 Insulin Aspart (NovoLOG) 0-9 UNITS TIDWMEALS SQ ; Start 10/29/16 at 08:00 Dextrose (Dextrose 50%-Water Syringe) 12.5 gm PRN Q15MIN PRN IV SEE COMMENTS; Start 10/28/16 at 20:00 Carvedilol (Coreg) 6.25 mg BIDWMEALS PO Last administered on 10/31/16 08:50; Start 10/28/16 at 20:30 Docusate Sodium (Colace) 100 mg DAILY PO Last administered on 10/29/16 09:11; Start 10/29/16 at 09:00 Finasteride (Proscar) 5 mg DAILY PO Last administered on 10/31/16 08:50; Start 10/29/16 at 09:00 Fluoxetine HCl (PROzac) 20 mg HS PO Last administered on 10/30/16 20:44; Start 10/28/16 at 21:00 Gabapentin (Neurontin) 200 mg QHS PO Last administered on 10/30/16 20:44; Start 10/28/16 at 21:00 Acetaminophen/ Hydrocodone Bitart (Lortab 5/325) 1 tab PRN Q6HRS PRN PO PAIN Last administered on 10/30/16 09:41; Start 10/28/16 at 20:00 Lisinopril (Prinivil) 2.5 mg BID PO Last administered on 10/31/16 08:49; Start 10/28/16 at 21:00 Nitroglycerin (Nitrostat) 0.4 mg PRN Q5MIN PRN SL cp; Start 10/28/16 at 20:00 Pantoprazole Sodium (Protonix) 20 mg DAILYAC PO ; Start 10/29/16 at 07:30; Stop 10/30/16 at 00:47; Status DC Tamsulosin HCl (Flomax) 0.4 mg DAILY PO Last administered on 10/31/16 08:49; Start 10/29/16 at 09:00 Calcium/Vitamin D (Oscal D 500mg/ 200uts) 1 tab BIDWMEALS PO Last administered on 10/31/16 08:49; Start 10/29/16 at 08:00 Non-Formulary Medication 1,000 mg BID PO ; Start 10/28/16 at 21:00; Status UNV Acetaminophen/ Hydrocodone Bitart (Lortab 10/325) 2 tab PRN Q6HRS PRN PO PAIN Last administered on 10/30/16 20:46; Start 10/28/16 at 20:15 Cetirizine HCl (ZyrTEC) 10 mg DAILY PO Last administered on 10/31/16 08:49; Start 10/29/16 at 09:00 Non-Formulary Medication 5 mg PRN QHS PRN PO INSOMNIA; Start 10/28/16 at 20:00 ; Status UNV Famotidine (Pepcid) 20 mg QHS PO Last administered on 10/30/16 20:44; Start at 21:00 Atorvastatin Calcium (Lipitor) 20 mg QHS PO Last administered on 10/30/16 20: 45; Start 10/28/16 at 21:00 Ascorbic Acid (Vitamin C) 500 mg BIDWMEALS PO Last administered on 10/31/16 08 :49; Start 10/29/16 at 08:00 Nystatin (Nystop) 1 willa BID TP Last administered on 10/31/16 08:48; Start at 21:00 Fluconazole/ Sodium Chloride 100 ml @ 100 mls/hr Q24H IV ; Start 10/28/16 at 20 :30; Status Cancel Fluconazole (Diflucan) 200 mg QHS PO ; Start 10/29/16 at 21:00; Stop 10/29/16 at 21:00; Status DC Fluconazole/ Sodium Chloride 100 ml @ 100 mls/hr Q24H IV Last administered on 10/28/16 22:23; Start 10/28/16 at 23:00; Stop 10/29/16 at 09:41; Status DC Micafungin Sodium 100 mg/Dextrose 100 ml @ 100 mls/hr Q24H IV Last administered on 10/31/16 08:48; Start 10/29/16 at 10:00 Linezolid (Zyvox) 600 mg BID PO Last administered on 10/31/16 08:48; Start at 10:00 Piperacillin Sod/ Tazobactam Sod 3.375 gm/Sodium Chloride 50 ml @ 100 mls/hr Q6HRS IV Last administered on 10/31/16 06:00; Start 10/29/16 at 10:00; Stop at 08:50; Status DC Amoxicillin/ Clavulanate Potassium (Augmentin 875/ 125mg) 1 tab BID PO Last administered on 10/31/16 11:57; Start 10/31/16 at 09:00 Active Scripts Active Hydrocodone-Apap 5-325 (Hydrocodone Bit/Acetaminophen) 1 Each Tablet 1 Tab PO PRN Q6HRS PRN Reported Zyrtec (Cetirizine Hcl) 10 Mg Tablet 1 Tab PO DAILY Vesicare (Solifenacin Succinate) 5 Mg Tablet 1 Tab PO DAILY Flonase Allergy Relief (Fluticasone Propionate) 9.9 Ml [place].susp 2 Sprays NS BID Bupropion Xl (Bupropion Hcl) 300 Mg Tab.er.24h 1 Tab PO DAILYWBKFT Melatonin 5 Mg Tablet 5 Mg PO PRN QHS PRN Gabapentin 100 Mg Capsule 200 Mg PO QHS Nitrostat (Nitroglycerin) 0.4 Mg Tab.subl 1 Tab SL UD Aspir 81 (Aspirin) 81 Mg Tablet.dr 1 Tab PO HS Glucosamine (Glucosamine Sulfate 2KCL) 1,000 Mg Tablet 1,000 Mg PO BID Docusate Sodium 100 Mg Capsule 1 Cap PO DAILY Vitamin C 500 Mg/15 Ml Liquid (Vit C/Ascorbate Ca/Ascorb Sod) 500 Mg/15 Ml Liquid 500 Mg PO BID Multi Vitamin Daily (Multivitamin) 1 Each Tablet 1 Each PO Caltrate 600 + D Tablet (Calcium Carbonate/Vitamin D3) 1 Each Tablet 1 Each PO BID Loratadine 10 Mg Tablet 1 Tab PO DAILY Hydrocodone-Apap 10-300 (Hydrocodone Bit/Acetaminophen) 1 Each Tablet 2 Tab PO PRN Q6HRS PRN Fluoxetine Hcl 20 Mg Capsule 1 Cap PO HS Ranitidine Hcl 150 Mg Capsule 1 Cap PO HS Pantoprazole Sodium 40 Mg Tablet. 20 Mg PO DAILY Lisinopril 2.5 Mg Tablet 1 Tab PO BID Finasteride 5 Mg Tablet 1 Tab PO DAILY Alfuzosin Hcl 10 Mg Tab.er.24h 1 Tab PO DAILY Crestor (Rosuvastatin Calcium) 5 Mg Tablet 5 Mg PO HS Clopidogrel (Clopidogrel Bisulfate) 75 Mg Tablet 1 Tab PO DAILY Carvedilol 6.25 Mg Tablet 1 Tab PO BID Vitals/I & O Vital Sign - Last 24 Hours 10/30/16 10/30/16 10/30/16 10/30/16 15:00 17:12 19:00 20:00 Temp 98.8 98.1 98.8 98.1 Pulse 57 60 68 Resp 20 18 B/P (MAP) 105/64 (78) 105/67 109/73 (85) Pulse Ox 92 95 O2 Delivery Room Air Room Air Room Air 10/30/16 10/30/16 10/30/16 10/30/16 20:44 20:46 22:31 22:46 Temp 99.0 99.0 Pulse 68 60 Resp 18 18 18 B/P (MAP) 109/73 116/80 (92) Pulse Ox 95 91 O2 Delivery Room Air Room Air Room Air 10/31/16 10/31/16 10/31/16 10/31/16 02:51 07:00 08:00 08:49 Temp 97.7 97.5 97.7 97.5 Pulse 60 57 60 Resp 18 18 B/P (MAP) 133/86 (102) 129/89 (102) 129/89 Pulse Ox 91 94 O2 Delivery Room Air Room Air Room Air 10/31/16 10/31/16 08:50 11:00 Temp 97.6 97.6 Pulse 60 61 Resp 19 B/P (MAP) 129/89 114/81 (92) Pulse Ox 95 O2 Delivery Room Air Intake and Output 10/30/16 10/30/16 10/31/16 15:00 23:00 07:00 Intake Total 650 ml 230 ml 50 ml Output Total 1200 ml Balance 650 ml 230 ml -1150 ml KENAN CURRIE MD October 31, 2016 14:43
[2016-10-31 15:00] VITALS: BP 112/82
[2016-10-31 19:00] VITALS: BP 114/70
[2016-10-31] MEDS: FLUoxetine HCL 20 MG CAPSULE PO SCH (20:10)
[2016-10-31] MEDS: FAMOTIDINE 20 MG TABLET. PO SCH (20:11)
[2016-10-31] MEDS: ATORVASTATIN CALCIUM 20 MG TABLET PO SCH (20:11)
[2016-10-31] MEDS: GABAPENTIN 100 MG CAPSULE. PO SCH (20:11)
[2016-10-31] MEDS: HYDROcodone/APAP 10/325 1 TAB TABLET PO PRN (20:11)
[2016-10-31 23:00] VITALS: BP 136/92
[2016-11-01 03:35] VITALS: BP 136/87
[2016-11-01 07:00] VITALS: BP 127/85
[2016-11-01] MEDS: INSULIN ASPART 300 UNITS/3 ML INSULN.PEN SQ SCH ×3 (08:00→16:52)
[2016-11-01] MEDS: CALCIUM CARB/VIT D3 500/200 TABLET. PO SCH ×2 (08:49→16:52)
[2016-11-01] MEDS: AMOXICILLIN/K CLAV 875/125MG TABLET. PO SCH ×2 (08:50→20:30)
[2016-11-01] MEDS: DOCUSATE SODIUM 100 MG CAPSULE. PO SCH (08:50)
[2016-11-01] MEDS: ASCORBIC ACID 500 MG TABLET PO SCH ×2 (08:50→16:52)
[2016-11-01] MEDS: LISINOPRIL 2.5 MG TABLET PO SCH ×2 (08:50→20:31)
[2016-11-01] MEDS: CARVEDILOL 6.25 MG TABLET. PO SCH ×2 (08:50→16:52)
[2016-11-01] MEDS: LINEZOLID 600 MG TABLET PO SCH ×2 (08:50→20:31)
[2016-11-01] MEDS: TAMSULOSIN 0.4 MG CAP.ER.24H. PO SCH (08:50)
[2016-11-01] MEDS: FINASTERIDE 5 MG TABLET. PO SCH (08:51)
[2016-11-01] MEDS: CETIRIZINE HCL 10 MG TABLET. PO SCH (08:51)
[2016-11-01] MEDS: NYSTATIN TOPICAL POWDER 15GM BOTTLE. TP SCH ×2 (09:00→20:32)
[2016-11-01] MEDS: MICAFUNGIN 100 MG in IV DEXTROSE 5% 100 ML IV SCH (10:00)
--- NOTE | 2016-11-01 10:08 | PDOC ---
PROGRESS NOTES Chief Complaint Chief Complaint 1. Cellulitis, fungal and possibly bacterial in groin/genital area 2. Indwelling colostomy bag, 3. Dementia, mod 4. SNU resident, hx falls, gen weakness, FTT 5. Mod malnutrition 6. Hx CAD: EF 30%, chronic systolic CHF 7. HTN, HLP on statin History of Present Illness History of Present Illness RAsh look significantly better! NO fever, no white ct COlostomy bag looks to be intact, no leakage - no surgical plans of ostomy revision NO issues per pt PLAN: CPM Goal dc likely thursday, pending ID recs Vitals Vitals Vital Signs Date Time Temp Pulse Resp B/P (MAP) Pulse Ox O2 Delivery O2 Flow Rate FiO2 11/01/16 08:50 61 136/87 11/01/16 08:00 Room Air 11/01/16 07:00 97.5 18 94 97.5 Physical Exam General: Alert, Cooperative, No acute distress Heart: Regular rate, Normal S1, Normal S2, No murmurs Lungs: Clear Abdomen: Soft, No tenderness, Other (ostomy viable and functional, no obvious complication, erythema right groin area) Extremities: No clubbing, No cyanosis Skin: Other Labs LABS Laboratory Tests Test 10/31/16 10:38 10/31/16 15:42 10/31/16 20:42 11/01/16 07:23 Glucose (Fingerstick) 103 mg/dL (70-99) 77 mg/dL (70-99) 118 mg/dL (70-99) 86 mg/dL (70-99) Review of Systems Review of Systems no n/v/emesis, soft stools in ostomy bag Assessment and Plan Assessmemt and Plan Problems Medical Problems: (1) Cellulitis Status: Acute Problems: Comment Review of Relevant I have reviewed the following items flaco (where applicable) has been applied. Labs Laboratory Tests Test 10/30/16 11:16 10/30/16 16:45 10/30/16 20:57 10/31/16 07:42 Glucose (Fingerstick) 100 mg/dL (70-99) 82 mg/dL (70-99) 87 mg/dL (70-99) 94 mg/dL (70-99) Test 10/31/16 10:38 10/31/16 15:42 10/31/16 20:42 11/01/16 07:23 Glucose (Fingerstick) 103 mg/dL (70-99) 77 mg/dL (70-99) 118 mg/dL (70-99) 86 mg/dL (70-99) Laboratory Tests Test 10/31/16 10:38 10/31/16 15:42 10/31/16 20:42 11/01/16 07:23 Glucose (Fingerstick) 103 mg/dL (70-99) 77 mg/dL (70-99) 118 mg/dL (70-99) 86 mg/dL (70-99) Microbiology 10/28/16 Blood Culture - Preliminary, Resulted NO GROWTH AFTER 3 DAYS Medications Current Medications Fentanyl Citrate (Fentanyl 2ml Vial) 50 mcg 1X ONCE IV Last administered on 17:15; Start 10/28/16 at 17:15; Stop 10/28/16 at 17:17; Status DC Ondansetron HCl (Zofran) 4 mg 1X ONCE IV Last administered on 10/28/16 17:15 ; Start 10/28/16 at 17:15; Stop 10/28/16 at 17:17; Status DC Clindamycin Phosphate 50 ml @ 100 mls/hr 1X ONCE IV Last administered on 10/28 18:51; Start 10/28/16 at 19:30; Stop 10/28/16 at 20:00; Status DC Fluconazole (Diflucan) 150 mg 1X ONCE PO Last administered on 10/28/16 19:20 ; Start 10/28/16 at 19:15; Stop 10/28/16 at 19:16; Status DC Ondansetron HCl (Zofran) 4 mg PRN Q8HRS PRN IV NAUSEA/VOMITING; Start 10/28/16 at 19:15; Stop 10/28/16 at 19:55; Status DC Sodium Chloride 1,000 ml @ 125 mls/hr Q8H IV Last administered on 10/29/16 20 :38; Start 10/28/16 at 19:10; Stop 10/29/16 at 19:09; Status DC Acetaminophen/ Hydrocodone Bitart (Lortab 5/325) 1 tab PRN Q6HRS PRN PO pain Last administered on 10/29/16 03:20; Start 10/28/16 at 19:15; Stop 10/29/16 at 14:50; Status DC Clindamycin Phosphate 50 ml @ 100 mls/hr Q8H IV Last administered on 02:59; Start 10/29/16 at 03:00; Stop 10/29/16 at 09:41; Status DC Ondansetron HCl (Zofran) 4 mg PRN Q6HRS PRN IV NAUSEA/VOMITING; Start 10/28/16 at 19:52; Stop 10/29/16 at 19:51; Status DC Acetaminophen (Tylenol) 500 mg PRN Q6HRS PRN PO MILD PAIN / TEMP Last administered on 10/31/16 05:59; Start 10/28/16 at 20:00 Insulin Aspart (NovoLOG) 0-9 UNITS TIDWMEALS SQ ; Start 10/29/16 at 08:00 Dextrose (Dextrose 50%-Water Syringe) 12.5 gm PRN Q15MIN PRN IV SEE COMMENTS; Start 10/28/16 at 20:00 Carvedilol (Coreg) 6.25 mg BIDWMEALS PO Last administered on 11/01/16 08:50; Start 10/28/16 at 20:30 Docusate Sodium (Colace) 100 mg DAILY PO Last administered on 11/01/16 08:50; Start 10/29/16 at 09:00 Finasteride (Proscar) 5 mg DAILY PO Last administered on 11/01/16 08:51; Start 10/29/16 at 09:00 Fluoxetine HCl (PROzac) 20 mg HS PO Last administered on 10/31/16 20:10; Start 10/28/16 at 21:00 Gabapentin (Neurontin) 200 mg QHS PO Last administered on 10/31/16 20:11; Start 10/28/16 at 21:00 Acetaminophen/ Hydrocodone Bitart (Lortab 5/325) 1 tab PRN Q6HRS PRN PO PAIN Last administered on 10/30/16 09:41; Start 10/28/16 at 20:00 Lisinopril (Prinivil) 2.5 mg BID PO Last administered on 11/01/16 08:50; Start 10/28/16 at 21:00 Nitroglycerin (Nitrostat) 0.4 mg PRN Q5MIN PRN SL cp; Start 10/28/16 at 20:00 Pantoprazole Sodium (Protonix) 20 mg DAILYAC PO ; Start 10/29/16 at 07:30; Stop 10/30/16 at 00:47; Status DC Tamsulosin HCl (Flomax) 0.4 mg DAILY PO Last administered on 11/01/16 08:50; Start 10/29/16 at 09:00 Calcium/Vitamin D (Oscal D 500mg/ 200uts) 1 tab BIDWMEALS PO Last administered on 11/01/16 08:49; Start 10/29/16 at 08:00 Non-Formulary Medication 1,000 mg BID PO ; Start 10/28/16 at 21:00; Status UNV Acetaminophen/ Hydrocodone Bitart (Lortab 10/325) 2 tab PRN Q6HRS PRN PO PAIN Last administered on 10/31/16 20:11; Start 10/28/16 at 20:15 Cetirizine HCl (ZyrTEC) 10 mg DAILY PO Last administered on 11/01/16 08:51; Start 10/29/16 at 09:00 Non-Formulary Medication 5 mg PRN QHS PRN PO INSOMNIA; Start 10/28/16 at 20:00 ; Status UNV Famotidine (Pepcid) 20 mg QHS PO Last administered on 10/31/16 20:11; Start at 21:00 Atorvastatin Calcium (Lipitor) 20 mg QHS PO Last administered on 10/31/16 20: 11; Start 10/28/16 at 21:00 Ascorbic Acid (Vitamin C) 500 mg BIDWMEALS PO Last administered on 11/01/16 08 :50; Start 10/29/16 at 08:00 Nystatin (Nystop) 1 [place]a BID TP Last administered on 10/31/16 20:16; Start at 21:00 Fluconazole/ Sodium Chloride 100 ml @ 100 mls/hr Q24H IV ; Start 10/28/16 at 20 :30; Status Cancel Fluconazole (Diflucan) 200 mg QHS PO ; Start 10/29/16 at 21:00; Stop 10/29/16 at 21:00; Status DC Fluconazole/ Sodium Chloride 100 ml @ 100 mls/hr Q24H IV Last administered on 10/28/16 22:23; Start 10/28/16 at 23:00; Stop 10/29/16 at 09:41; Status DC Micafungin Sodium 100 mg/Dextrose 100 ml @ 100 mls/hr Q24H IV Last administered on 10/31/16 08:48; Start 10/29/16 at 10:00 Linezolid (Zyvox) 600 mg BID PO Last administered on 11/01/16 08:50; Start at 10:00 Piperacillin Sod/ Tazobactam Sod 3.375 gm/Sodium Chloride 50 ml @ 100 mls/hr Q6HRS IV Last administered on 10/31/16 06:00; Start 10/29/16 at 10:00; Stop at 08:50; Status DC Amoxicillin/ Clavulanate Potassium (Augmentin 875/ 125mg) 1 tab BID PO Last administered on 11/01/16 08:50; Start 10/31/16 at 09:00 Active Scripts Active Hydrocodone-Apap 5-325 (Hydrocodone Bit/Acetaminophen) 1 Each Tablet 1 Tab PO PRN Q6HRS PRN Reported Zyrtec (Cetirizine Hcl) 10 Mg Tablet 1 Tab PO DAILY Vesicare (Solifenacin Succinate) 5 Mg Tablet 1 Tab PO DAILY Flonase Allergy Relief (Fluticasone Propionate) 9.9 Ml [place].susp 2 Sprays NS BID Bupropion Xl (Bupropion Hcl) 300 Mg Tab.er.24h 1 Tab PO DAILYWBKFT Melatonin 5 Mg Tablet 5 Mg PO PRN QHS PRN Gabapentin 100 Mg Capsule 200 Mg PO QHS Nitrostat (Nitroglycerin) 0.4 Mg Tab.subl 1 Tab SL UD Aspir 81 (Aspirin) 81 Mg Tablet.dr 1 Tab PO HS Glucosamine (Glucosamine Sulfate 2KCL) 1,000 Mg Tablet 1,000 Mg PO BID Docusate Sodium 100 Mg Capsule 1 Cap PO DAILY Vitamin C 500 Mg/15 Ml Liquid (Vit C/Ascorbate Ca/Ascorb Sod) 500 Mg/15 Ml Liquid 500 Mg PO BID Multi Vitamin Daily (Multivitamin) 1 Each Tablet 1 Each PO Caltrate 600 + D Tablet (Calcium Carbonate/Vitamin D3) 1 Each Tablet 1 Each PO BID Loratadine 10 Mg Tablet 1 Tab PO DAILY Hydrocodone-Apap 10-300 (Hydrocodone Bit/Acetaminophen) 1 Each Tablet 2 Tab PO PRN Q6HRS PRN Fluoxetine Hcl 20 Mg Capsule 1 Cap PO HS Ranitidine Hcl 150 Mg Capsule 1 Cap PO HS Pantoprazole Sodium 40 Mg Tablet.dr 20 Mg PO DAILY Lisinopril 2.5 Mg Tablet 1 Tab PO BID Finasteride 5 Mg Tablet 1 Tab PO DAILY Alfuzosin Hcl 10 Mg Tab.er.24h 1 Tab PO DAILY Crestor (Rosuvastatin Calcium) 5 Mg Tablet 5 Mg PO HS Clopidogrel (Clopidogrel Bisulfate) 75 Mg Tablet 1 Tab PO DAILY Carvedilol 6.25 Mg Tablet 1 Tab PO BID Vitals/I & O Vital Sign - Last 24 Hours 10/31/16 10/31/16 10/31/16 10/31/16 11:00 15:00 17:29 19:00 Temp 97.6 96.8 97.2 97.6 96.8 97.2 Pulse 61 61 61 65 Resp 18 B/P (MAP) 114/81 (92) 112/82 (92) 112/82 114/70 (85) Pulse Ox 95 95 92 O2 Delivery Room Air Room Air Room Air 10/31/16 10/31/16 10/31/16 10/31/16 20:10 20:11 20:46 21:40 Pulse 65 Resp 18 18 B/P (MAP) 114/70 Pulse Ox 95 95 O2 Delivery Room Air Room Air Room Air 10/31/16 11/01/16 11/01/16 11/01/16 23:00 03:35 07:00 08:00 Temp 97.5 97.5 97.5 97.5 97.5 97.5 Pulse 58 61 60 Resp 18 B/P (MAP) 136/92 (107) 136/87 (103) 127/85 (99) Pulse Ox 91 92 94 O2 Delivery Room Air Room Air Room Air Room Air 11/01/16 11/01/16 08:50 08:50 Pulse 61 61 B/P (MAP) 136/87 136/87 Intake and Output 10/31/16 10/31/16 11/01/16 15:00 23:00 07:00 Intake Total 500 ml 1250 ml 150 ml Output Total 300 ml 1025 ml 1125 ml Balance 200 ml 225 ml -975 ml AARON ACOSTA MD November 01, 2016 10:08
--- NOTE | 2016-11-01 10:22 | PDOC ---
Infectious Disease Note Subjective Subjective Feels "fair" No fever No diarrhea Vital Sign Vital Signs Vital Signs Date Time Temp Pulse Resp B/P (MAP) Pulse Ox O2 Delivery O2 Flow Rate FiO2 11/01/16 08:50 61 136/87 11/01/16 08:00 Room Air 11/01/16 07:00 97.5 18 94 97.5 Physical Exam PHYSICAL EXAM GENERAL: Up in the chair, relaxed appearance HEENT: PERRL, OC/OP - clear LUNGS: Clear HEART: S1S2, no gallop, no murmur ABD: Soft, NT, BS present, Ostomy - clean EXT: BLE trace edema. No cyanosis DIRECTOR OF SOCIAL WORK: Alert, confused, follows commands SKIN: No generalized rash. Abd/groin erythema fading IV: ok Labs Lab Laboratory Tests Test 10/31/16 10:38 10/31/16 15:42 10/31/16 20:42 11/01/16 07:23 Glucose (Fingerstick) 103 mg/dL (70-99) 77 mg/dL (70-99) 118 mg/dL (70-99) 86 mg/dL (70-99) Micro BLOOD CULTURE Preliminary NO GROWTH AFTER 3 DAYS Objective Assessment Right flank/groin cellulitis - better Tinea CKD Sulfa allergy ? reaction ? ostomy leak - appears intact C-diff/MRSA screen - neg Plan Plan of Care Micafungin, po Zyvox and Augmentin Supportive care Attending Co-Sign The patient was seen and interviewed as well as examined at the bedside. The chart was reviewed. The case was discussed. Agree with the plan of care. KERRY ORDONEZ APRN November 01, 2016 10:22 DUANE CLEMONS MD November 01, 2016 12:48
[2016-11-01 11:00] VITALS: BP 92/63
[2016-11-01 15:17] VITALS: BP 109/74
[2016-11-01 19:00] VITALS: BP 105/74
[2016-11-01] MEDS: FAMOTIDINE 20 MG TABLET. PO SCH (20:31)
[2016-11-01] MEDS: GABAPENTIN 100 MG CAPSULE. PO SCH (20:31)
[2016-11-01] MEDS: FLUoxetine HCL 20 MG CAPSULE PO SCH (20:31)
[2016-11-01] MEDS: ATORVASTATIN CALCIUM 20 MG TABLET PO SCH (20:31)
[2016-11-01 23:00] VITALS: BP 120/81
[2016-11-02 03:00] VITALS: BP 115/78
[2016-11-02 07:00] VITALS: BP 108/74
[2016-11-02] MEDS: INSULIN ASPART 300 UNITS/3 ML INSULN.PEN SQ SCH ×3 (08:00→17:00)
[2016-11-02] MEDS: CALCIUM CARB/VIT D3 500/200 TABLET. PO SCH ×2 (08:19→17:35)
[2016-11-02] MEDS: FINASTERIDE 5 MG TABLET. PO SCH (08:19)
[2016-11-02] MEDS: AMOXICILLIN/K CLAV 875/125MG TABLET. PO SCH ×2 (08:19→20:59)
[2016-11-02] MEDS: CETIRIZINE HCL 10 MG TABLET. PO SCH (08:19)
[2016-11-02] MEDS: LINEZOLID 600 MG TABLET PO SCH ×2 (08:20→20:59)
[2016-11-02] MEDS: ASCORBIC ACID 500 MG TABLET PO SCH ×2 (08:20→17:35)
[2016-11-02] MEDS: CARVEDILOL 6.25 MG TABLET. PO SCH ×2 (08:20→17:35)
[2016-11-02] MEDS: TAMSULOSIN 0.4 MG CAP.ER.24H. PO SCH (08:20)
[2016-11-02] MEDS: DOCUSATE SODIUM 100 MG CAPSULE. PO SCH (08:23)
[2016-11-02] MEDS: LISINOPRIL 2.5 MG TABLET PO SCH ×2 (08:30→21:00)
[2016-11-02] MEDS: NYSTATIN TOPICAL POWDER 15GM BOTTLE. TP SCH ×2 (08:30→21:03)
--- NOTE | 2016-11-02 09:29 | PDOC ---
PROGRESS NOTES Chief Complaint Chief Complaint 1. Cellulitis, fungal and possibly bacterial in groin/genital area 2. Indwelling colostomy bag, 3. Dementia, mod 4. SNU resident, hx falls, gen weakness, FTT 5. Mod malnutrition 6. Hx CAD: EF 30%, chronic systolic CHF 7. HTN, HLP on statin History of Present Illness History of Present Illness RAsh look significantly better! NO fever, no white ct COlostomy bag looks to be intact, no leakage - no surgical plans of ostomy revision NO issues per pt Wants to go home [facility] - was not on [facility] in [place] PLAN: dc [place] Goal dc likely thursday, if ID clears ([place]) Vitals Vitals Vital Signs Date Time Temp Pulse Resp B/P (MAP) Pulse Ox O2 Delivery O2 Flow Rate FiO2 11/02/16 08:30 62 135/87 11/02/16 07:00 97.5 18 98 Room Air 97.5 Physical Exam General: Alert, Cooperative, No acute distress Heart: Regular rate, Normal S1, Normal S2, No murmurs Lungs: Clear Abdomen: Soft, No tenderness, Other (ostomy viable and functional, no obvious complication, erythema right groin area) Extremities: No clubbing, No cyanosis Skin: Other Labs LABS Laboratory Tests Test 11/01/16 10:56 11/01/16 15:58 11/01/16 20:59 Glucose (Fingerstick) 136 mg/dL (70-99) 92 mg/dL (70-99) 101 mg/dL (70-99) Review of Systems Review of Systems denies all 14 pt - wants to go home Assessment and Plan Assessmemt and Plan Problems Medical Problems: (1) Cellulitis Status: Acute Problems: Comment Review of Relevant I have reviewed the following items flaco (where applicable) has been applied. Labs Laboratory Tests Test 10/31/16 10:38 10/31/16 15:42 10/31/16 20:42 11/01/16 07:23 Glucose (Fingerstick) 103 mg/dL (70-99) 77 mg/dL (70-99) 118 mg/dL (70-99) 86 mg/dL (70-99) Test 11/01/16 10:56 11/01/16 15:58 11/01/16 20:59 Glucose (Fingerstick) 136 mg/dL (70-99) 92 mg/dL (70-99) 101 mg/dL (70-99) Laboratory Tests Test 11/01/16 10:56 11/01/16 15:58 11/01/16 20:59 Glucose (Fingerstick) 136 mg/dL (70-99) 92 mg/dL (70-99) 101 mg/dL (70-99) Microbiology 10/28/16 Blood Culture - Preliminary, Resulted NO GROWTH AFTER 4 DAYS Medications Current Medications Fentanyl Citrate (Fentanyl 2ml Vial) 50 mcg 1X ONCE IV Last administered on 17:15; Start 10/28/16 at 17:15; Stop 10/28/16 at 17:17; Status DC Ondansetron HCl (Zofran) 4 mg 1X ONCE IV Last administered on 10/28/16 17:15 ; Start 10/28/16 at 17:15; Stop 10/28/16 at 17:17; Status DC Clindamycin Phosphate 50 ml @ 100 mls/hr 1X ONCE IV Last administered on 10/28 18:51; Start 10/28/16 at 19:30; Stop 10/28/16 at 20:00; Status DC Fluconazole (Diflucan) 150 mg 1X ONCE PO Last administered on 10/28/16 19:20 ; Start 10/28/16 at 19:15; Stop 10/28/16 at 19:16; Status DC Ondansetron HCl (Zofran) 4 mg PRN Q8HRS PRN IV NAUSEA/VOMITING; Start 10/28/16 at 19:15; Stop 10/28/16 at 19:55; Status DC Sodium Chloride 1,000 ml @ 125 mls/hr Q8H IV Last administered on 10/29/16 20 :38; Start 10/28/16 at 19:10; Stop 10/29/16 at 19:09; Status DC Acetaminophen/ Hydrocodone Bitart (Lortab 5/325) 1 tab PRN Q6HRS PRN PO pain Last administered on 10/29/16 03:20; Start 10/28/16 at 19:15; Stop 10/29/16 at 14:50; Status DC Clindamycin Phosphate 50 ml @ 100 mls/hr Q8H IV Last administered on 02:59; Start 10/29/16 at 03:00; Stop 10/29/16 at 09:41; Status DC Ondansetron HCl (Zofran) 4 mg PRN Q6HRS PRN IV NAUSEA/VOMITING; Start 10/28/16 at 19:52; Stop 10/29/16 at 19:51; Status DC Acetaminophen (Tylenol) 500 mg PRN Q6HRS PRN PO MILD PAIN / TEMP Last administered on 10/31/16 05:59; Start 10/28/16 at 20:00 Insulin Aspart (NovoLOG) 0-9 UNITS TIDWMEALS SQ ; Start 10/29/16 at 08:00 Dextrose (Dextrose 50%-Water Syringe) 12.5 gm PRN Q15MIN PRN IV SEE COMMENTS; Start 10/28/16 at 20:00 Carvedilol (Coreg) 6.25 mg BIDWMEALS PO Last administered on 11/02/16 08:20; Start 10/28/16 at 20:30 Docusate Sodium (Colace) 100 mg DAILY PO Last administered on 11/01/16 08:50; Start 10/29/16 at 09:00 Finasteride (Proscar) 5 mg DAILY PO Last administered on 11/02/16 08:19; Start 10/29/16 at 09:00 Fluoxetine HCl (PROzac) 20 mg HS PO Last administered on 11/01/16 20:31; Start 10/28/16 at 21:00 Gabapentin (Neurontin) 200 mg QHS PO Last administered on 11/01/16 20:31; Start 10/28/16 at 21:00 Acetaminophen/ Hydrocodone Bitart (Lortab 5/325) 1 tab PRN Q6HRS PRN PO MODERATE PAIN Last administered on 10/30/16 09:41; Start 10/28/16 at 20:00 Lisinopril (Prinivil) 2.5 mg BID PO Last administered on 11/02/16 08:30; Start 10/28/16 at 21:00 Nitroglycerin (Nitrostat) 0.4 mg PRN Q5MIN PRN SL cp; Start 10/28/16 at 20:00 Pantoprazole Sodium (Protonix) 20 mg DAILYAC PO ; Start 10/29/16 at 07:30; Stop 10/30/16 at 00:47; Status DC Tamsulosin HCl (Flomax) 0.4 mg DAILY PO Last administered on 11/02/16 08:20; Start 10/29/16 at 09:00 Calcium/Vitamin D (Oscal D 500mg/ 200uts) 1 tab BIDWMEALS PO Last administered on 11/02/16 08:19; Start 10/29/16 at 08:00 Non-Formulary Medication 1,000 mg BID PO ; Start 10/28/16 at 21:00; Status UNV Acetaminophen/ Hydrocodone Bitart (Lortab 10/325) 2 tab PRN Q6HRS PRN PO SEVERE PAIN Last administered on 10/31/16 20:11; Start 10/28/16 at 20:15 Cetirizine HCl (ZyrTEC) 10 mg DAILY PO Last administered on 11/02/16 08:19; Start 10/29/16 at 09:00 Non-Formulary Medication 5 mg PRN QHS PRN PO INSOMNIA; Start 10/28/16 at 20:00 ; Status UNV Famotidine (Pepcid) 20 mg QHS PO Last administered on 11/01/16 20:31; Start at 21:00 Atorvastatin Calcium (Lipitor) 20 mg QHS PO Last administered on 11/01/16 20: 31; Start 10/28/16 at 21:00 Ascorbic Acid (Vitamin C) 500 mg BIDWMEALS PO Last administered on 11/02/16 08 :20; Start 10/29/16 at 08:00 Nystatin (Nystop) 1 willa BID TP Last administered on 11/02/16 08:30; Start at 21:00 Fluconazole/ Sodium Chloride 100 ml @ 100 mls/hr Q24H IV ; Start 10/28/16 at 20 :30; Status Cancel Fluconazole (Diflucan) 200 mg QHS PO ; Start 10/29/16 at 21:00; Stop 10/29/16 at 21:00; Status DC Fluconazole/ Sodium Chloride 100 ml @ 100 mls/hr Q24H IV Last administered on 10/28/16 22:23; Start 10/28/16 at 23:00; Stop 10/29/16 at 09:41; Status DC Micafungin Sodium 100 mg/Dextrose 100 ml @ 100 mls/hr Q24H IV Last administered on 11/01/16 10:00; Start 10/29/16 at 10:00 Linezolid (Zyvox) 600 mg BID PO Last administered on 11/02/16 08:20; Start at 10:00 Piperacillin Sod/ Tazobactam Sod 3.375 gm/Sodium Chloride 50 ml @ 100 mls/hr Q6HRS IV Last administered on 10/31/16 06:00; Start 10/29/16 at 10:00; Stop at 08:50; Status DC Amoxicillin/ Clavulanate Potassium (Augmentin 875/ 125mg) 1 tab BID PO Last administered on 11/02/16 08:19; Start 10/31/16 at 09:00 Active Scripts Active Hydrocodone-Apap 5-325 (Hydrocodone Bit/Acetaminophen) 1 Each Tablet 1 Tab PO PRN Q6HRS PRN Reported Zyrtec (Cetirizine Hcl) 10 Mg Tablet 1 Tab PO DAILY Vesicare (Solifenacin Succinate) 5 Mg Tablet 1 Tab PO DAILY Flonase Allergy Relief (Fluticasone Propionate) 9.9 Ml [place].susp 2 Sprays NS BID Bupropion Xl (Bupropion Hcl) 300 Mg Tab.er.24h 1 Tab PO DAILYWBKFT Melatonin 5 Mg Tablet 5 Mg PO PRN QHS PRN Gabapentin 100 Mg Capsule 200 Mg PO QHS Nitrostat (Nitroglycerin) 0.4 Mg Tab.subl 1 Tab SL UD Aspir 81 (Aspirin) 81 Mg Tablet.dr 1 Tab PO HS Glucosamine (Glucosamine Sulfate 2KCL) 1,000 Mg Tablet 1,000 Mg PO BID Docusate Sodium 100 Mg Capsule 1 Cap PO DAILY Vitamin C 500 Mg/15 Ml Liquid (Vit C/Ascorbate Ca/Ascorb Sod) 500 Mg/15 Ml Liquid 500 Mg PO BID Multi Vitamin Daily (Multivitamin) 1 Each Tablet 1 Each PO Caltrate 600 + D Tablet (Calcium Carbonate/Vitamin D3) 1 Each Tablet 1 Each PO BID Loratadine 10 Mg Tablet 1 Tab PO DAILY Hydrocodone-Apap 10-300 (Hydrocodone Bit/Acetaminophen) 1 Each Tablet 2 Tab PO PRN Q6HRS PRN Fluoxetine Hcl 20 Mg Capsule 1 Cap PO HS Ranitidine Hcl 150 Mg Capsule 1 Cap PO HS Pantoprazole Sodium 40 Mg Tablet.dr 20 Mg PO DAILY Lisinopril 2.5 Mg Tablet 1 Tab PO BID Finasteride 5 Mg Tablet 1 Tab PO DAILY Alfuzosin Hcl 10 Mg Tab.er.24h 1 Tab PO DAILY Crestor (Rosuvastatin Calcium) 5 Mg Tablet 5 Mg PO HS Clopidogrel (Clopidogrel Bisulfate) 75 Mg Tablet 1 Tab PO DAILY Carvedilol 6.25 Mg Tablet 1 Tab PO BID Vitals/I & O Vital Sign - Last 24 Hours 11/01/16 11/01/16 11/01/16 11/01/16 11:00 15:17 16:52 19:00 Temp 97.5 96.4 97.3 97.5 96.4 97.3 Pulse 61 60 60 58 Resp 20 18 18 B/P (MAP) 92/63 (73) 109/74 (86) 109/74 105/74 (84) Pulse Ox 96 94 92 O2 Delivery Room Air Room Air Room Air 11/01/16 11/01/16 11/01/16 11/02/16 19:10 20:31 23:00 03:00 Temp 97.7 98.0 97.7 98.0 Pulse 58 71 60 Resp 18 18 B/P (MAP) 105/74 120/81 (94) 115/78 (90) Pulse Ox 97 92 O2 Delivery Room Air Room Air Room Air 11/02/16 11/02/16 11/02/16 07:00 08:20 08:30 Temp 97.5 97.5 Pulse 88 62 62 Resp 18 B/P (MAP) 108/74 (85) 135/87 135/87 Pulse Ox 98 O2 Delivery Room Air Intake and Output 11/01/16 11/01/16 11/02/16 15:00 23:00 07:00 Intake Total 250 ml 850 ml 290 ml Output Total 1075 ml 800 ml Balance 250 ml -225 ml -510 ml AARON ACOSTA MD November 02, 2016 09:29
--- NOTE | 2016-11-02 09:36 | PDOC ---
Infectious Disease Note Subjective Subjective Comfortable, denies pain No fever + BM ROS ROS GEN: Denies fevers, chills, sweats CV: Denies chest pain RESP: Denies shortness of air, cough GI: Denies n/v/d Vital Sign Vital Signs Vital Signs Date Time Temp Pulse Resp B/P (MAP) Pulse Ox O2 Delivery O2 Flow Rate FiO2 11/02/16 08:30 62 135/87 11/02/16 07:00 97.5 18 98 Room Air 97.5 Physical Exam PHYSICAL EXAM GENERAL: Propped up in bed, NAD HEENT: PERRL, OC/OP - clear LUNGS: Clear HEART: S1S2, pacemaker ABD: Soft, NT, BS present, Ostomy - clean EXT: BLE trace edema. 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 Sacral erythema less IV: ok Labs Lab Laboratory Tests Test 11/01/16 10:56 11/01/16 15:58 11/01/16 20:59 Glucose (Fingerstick) 136 mg/dL (70-99) 92 mg/dL (70-99) 101 mg/dL (70-99) Micro BLOOD CULTURE Preliminary NO GROWTH AFTER 4 DAYS Objective Assessment Right flank/groin cellulitis - better Tinea CKD Sulfa allergy ? reaction ? ostomy leak - appears intact C-diff/MRSA screen - neg Plan Plan of Care Micafungin, po Zyvox and Augmentin Supportive care Attending Co-Sign The patient was seen and interviewed as well as examined at the bedside. The chart was reviewed. The case was discussed. Agree with the plan of care. KERRY ORDONEZ APRN November 02, 2016 09:36 DUANE CLEMONS MD November 02, 2016 12:12
[2016-11-02 10:00] VITALS: BP 94/67
[2016-11-02] MEDS: MICAFUNGIN 100 MG in IV DEXTROSE 5% 100 ML IV SCH (10:00)
[2016-11-02 13:00] VITALS: BP 134/84
[2016-11-02 19:00] VITALS: BP 116/81
[2016-11-02] MEDS: ATORVASTATIN CALCIUM 20 MG TABLET PO SCH (20:59)
[2016-11-02] MEDS: FAMOTIDINE 20 MG TABLET. PO SCH (20:59)
[2016-11-02] MEDS: FLUoxetine HCL 20 MG CAPSULE PO SCH (21:00)
[2016-11-02] MEDS: GABAPENTIN 100 MG CAPSULE. PO SCH (21:00)
[2016-11-02 23:00] VITALS: BP 125/83
[2016-11-03 03:00] VITALS: BP 117/88
[2016-11-03 07:15] VITALS: BP 125/89
[2016-11-03] MEDS: INSULIN ASPART 300 UNITS/3 ML INSULN.PEN SQ SCH ×2 (08:00→11:25)
[2016-11-03] MEDS: DOCUSATE SODIUM 100 MG CAPSULE. PO SCH (08:27)
[2016-11-03] MEDS: CETIRIZINE HCL 10 MG TABLET. PO SCH (08:41)
[2016-11-03] MEDS: TAMSULOSIN 0.4 MG CAP.ER.24H. PO SCH (08:41)
[2016-11-03] MEDS: ASCORBIC ACID 500 MG TABLET PO SCH (08:41)
[2016-11-03] MEDS: FINASTERIDE 5 MG TABLET. PO SCH (08:41)
[2016-11-03] MEDS: AMOXICILLIN/K CLAV 875/125MG TABLET. PO SCH (08:41)
[2016-11-03] MEDS: LISINOPRIL 2.5 MG TABLET PO SCH (08:42)
[2016-11-03] MEDS: NYSTATIN TOPICAL POWDER 15GM BOTTLE. TP SCH (08:43)
[2016-11-03] MEDS: CALCIUM CARB/VIT D3 500/200 TABLET. PO SCH (08:43)
[2016-11-03] MEDS: LINEZOLID 600 MG TABLET PO SCH (08:43)
[2016-11-03] MEDS: CARVEDILOL 6.25 MG TABLET. PO SCH (08:43)
[2016-11-03] MEDS: MICAFUNGIN 100 MG in IV DEXTROSE 5% 100 ML IV SCH (08:44)
--- NOTE | 2016-11-03 09:13 | PDOC ---
Infectious Disease Note Subjective Subjective feeling good ROS ROS GEN: Denies fevers, chills, sweats HEENT: Denies blurred vision, sore throat CV: Denies chest pain RESP: Denies shortness of air, cough GI: Denies n/v/d NEURO: Denies confusion, dizziness MSK: Denies weakness, joint pain/swelling Vital Sign Vital Signs Vital Signs Date Time Temp Pulse Resp B/P (MAP) Pulse Ox O2 Delivery O2 Flow Rate FiO2 11/03/16 08:43 64 125/89 11/03/16 07:15 96.4 16 94 Room Air 96.4 Physical Exam PHYSICAL EXAM GENERAL: NAD, Alert HEENT: PERRL, OC/OP NECK: Supple, no JVD, no LN LUNGS: Clear HEART: S1S2, no gallop, no murmur ABD: Soft, NT, no organomegaly, no rebound EXT: No edema, no cyanosis 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 reaction ? ostomy leak - appears intact C-diff/MRSA screen - neg Plan Plan of Care change to po diflucan , d/c home ok Supportive care DUANE CLEMONS MD November 03, 2016 09:13
[2016-11-03] MEDS ORDERED: FLUCONAZOLE 100 MG TABLET. PO SCH (10:00)
[2016-11-03 11:00] VITALS: BP 128/72
--- NOTE | 2016-11-03 12:30 | PDOC ---
PROGRESS NOTES Chief Complaint Chief Complaint 1. Cellulitis, fungal and possibly bacterial in groin/genital area 2. Indwelling colostomy bag, 3. Dementia, mod 4. SNU resident, hx falls, gen weakness, FTT 5. Mod malnutrition 6. Hx CAD: EF 30%, chronic systolic CHF 7. HTN, HLP on statin History of Present Illness History of Present Illness Patient seen this am in NAD. Discussed with nurse about patient's antibiotics. She informed team that Dr. Prieto says patient can be D/C. Discussed with patient about D/C. Patient wants to go home. Vitals Vitals Vital Signs Date Time Temp Pulse Resp B/P (MAP) Pulse Ox O2 Delivery O2 Flow Rate FiO2 11/03/16 08:43 64 125/89 11/03/16 08:00 Room Air 11/03/16 07:15 96.4 16 94 96.4 Physical Exam General: Alert, Cooperative, No acute distress Heart: Regular rate, Normal S1, Normal S2, No murmurs Lungs: Clear Abdomen: Soft, No tenderness, Other (ostomy viable and functional, no obvious complication, erythema right groin area) Extremities: No clubbing, No cyanosis Skin: No rashes, No significant lesion, Other Labs LABS Laboratory Tests Test 11/02/16 16:11 11/02/16 21:19 11/03/16 07:26 11/03/16 11:07 Glucose (Fingerstick) 93 mg/dL (70-99) 98 mg/dL (70-99) 85 mg/dL (70-99) 100 mg/dL (70-99) Review of Systems Review of Systems No GUERRERO/blurry vision No JVD No SOB No rashes Assessment and Plan Assessmemt and Plan Problems Medical Problems: (1) Cellulitis Status: Acute 2. Indwelling colostomy bag, 3. Dementia, mod 4. SNU resident, hx falls, gen weakness, FTT 5. Mod malnutrition 6. Hx CAD: EF 30%, chronic systolic CHF 7. HTN, HLP on statin Plan: -Continue current medications and adjust accordingly as needed. -Transition IV Micafungin Na to cream. -Continue specialty consultation. -Continue PT/OT. -Probable D/C to [facility]isted Care- family requests he goes here. Problems: Comment Review of Relevant I have reviewed the following items flaco (where applicable) has been applied. Labs Laboratory Tests Test 11/01/16 15:58 11/01/16 20:59 11/02/16 07:22 11/02/16 11:01 Glucose (Fingerstick) 92 mg/dL (70-99) 101 mg/dL (70-99) 90 mg/dL (70-99) 131 mg/dL (70-99) Test 11/02/16 16:11 11/02/16 21:19 11/03/16 07:26 11/03/16 11:07 Glucose (Fingerstick) 93 mg/dL (70-99) 98 mg/dL (70-99) 85 mg/dL (70-99) 100 mg/dL (70-99) Laboratory Tests Test 11/02/16 16:11 11/02/16 21:19 11/03/16 07:26 11/03/16 11:07 Glucose (Fingerstick) 93 mg/dL (70-99) 98 mg/dL (70-99) 85 mg/dL (70-99) 100 mg/dL (70-99) Microbiology 10/28/16 Blood Culture - Final, Complete NO GROWTH AFTER 5 DAYS Medications Current Medications Fentanyl Citrate (Fentanyl 2ml Vial) 50 mcg 1X ONCE IV Last administered on 17:15; Start 10/28/16 at 17:15; Stop 10/28/16 at 17:17; Status DC Ondansetron HCl (Zofran) 4 mg 1X ONCE IV Last administered on 10/28/16 17:15 ; Start 10/28/16 at 17:15; Stop 10/28/16 at 17:17; Status DC Clindamycin Phosphate 50 ml @ 100 mls/hr 1X ONCE IV Last administered on 10/28 18:51; Start 10/28/16 at 19:30; Stop 10/28/16 at 20:00; Status DC Fluconazole (Diflucan) 150 mg 1X ONCE PO Last administered on 10/28/16 19:20 ; Start 10/28/16 at 19:15; Stop 10/28/16 at 19:16; Status DC Ondansetron HCl (Zofran) 4 mg PRN Q8HRS PRN IV NAUSEA/VOMITING; Start 10/28/16 at 19:15; Stop 10/28/16 at 19:55; Status DC Sodium Chloride 1,000 ml @ 125 mls/hr Q8H IV Last administered on 10/29/16 20 :38; Start 10/28/16 at 19:10; Stop 10/29/16 at 19:09; Status DC Acetaminophen/ Hydrocodone Bitart (Lortab 5/325) 1 tab PRN Q6HRS PRN PO pain Last administered on 10/29/16 03:20; Start 10/28/16 at 19:15; Stop 10/29/16 at 14:50; Status DC Clindamycin Phosphate 50 ml @ 100 mls/hr Q8H IV Last administered on 02:59; Start 10/29/16 at 03:00; Stop 10/29/16 at 09:41; Status DC Ondansetron HCl (Zofran) 4 mg PRN Q6HRS PRN IV NAUSEA/VOMITING; Start 10/28/16 at 19:52; Stop 10/29/16 at 19:51; Status DC Acetaminophen (Tylenol) 500 mg PRN Q6HRS PRN PO MILD PAIN / TEMP Last administered on 10/31/16 05:59; Start 10/28/16 at 20:00 Insulin Aspart (NovoLOG) 0-9 UNITS TIDWMEALS SQ ; Start 10/29/16 at 08:00 Dextrose (Dextrose 50%-Water Syringe) 12.5 gm PRN Q15MIN PRN IV SEE COMMENTS; Start 10/28/16 at 20:00 Carvedilol (Coreg) 6.25 mg BIDWMEALS PO Last administered on 11/03/16 08:43; Start 10/28/16 at 20:30 Docusate Sodium (Colace) 100 mg DAILY PO Last administered on 11/01/16 08:50; Start 10/29/16 at 09:00 Finasteride (Proscar) 5 mg DAILY PO Last administered on 11/03/16 08:41; Start 10/29/16 at 09:00 Fluoxetine HCl (PROzac) 20 mg HS PO Last administered on 11/02/16 21:00; Start 10/28/16 at 21:00 Gabapentin (Neurontin) 200 mg QHS PO Last administered on 11/02/16 21:00; Start 10/28/16 at 21:00 Acetaminophen/ Hydrocodone Bitart (Lortab 5/325) 1 tab PRN Q6HRS PRN PO MODERATE PAIN Last administered on 10/30/16 09:41; Start 10/28/16 at 20:00 Lisinopril (Prinivil) 2.5 mg BID PO Last administered on 11/03/16 08:42; Start 10/28/16 at 21:00 Nitroglycerin (Nitrostat) 0.4 mg PRN Q5MIN PRN SL cp; Start 10/28/16 at 20:00 Pantoprazole Sodium (Protonix) 20 mg DAILYAC PO ; Start 10/29/16 at 07:30; Stop 10/30/16 at 00:47; Status DC Tamsulosin HCl (Flomax) 0.4 mg DAILY PO Last administered on 11/03/16 08:41; Start 10/29/16 at 09:00 Calcium/Vitamin D (Oscal D 500mg/ 200uts) 1 tab BIDWMEALS PO Last administered on 11/03/16 08:43; Start 10/29/16 at 08:00 Non-Formulary Medication 1,000 mg BID PO ; Start 10/28/16 at 21:00; Status UNV Acetaminophen/ Hydrocodone Bitart (Lortab 10/325) 2 tab PRN Q6HRS PRN PO SEVERE PAIN Last administered on 10/31/16 20:11; Start 10/28/16 at 20:15 Cetirizine HCl (ZyrTEC) 10 mg DAILY PO Last administered on 11/03/16 08:41; Start 10/29/16 at 09:00 Non-Formulary Medication 5 mg PRN QHS PRN PO INSOMNIA; Start 10/28/16 at 20:00 ; Status UNV Famotidine (Pepcid) 20 mg QHS PO Last administered on 11/02/16 20:59; Start at 21:00 Atorvastatin Calcium (Lipitor) 20 mg QHS PO Last administered on 11/02/16 20: 59; Start 10/28/16 at 21:00 Ascorbic Acid (Vitamin C) 500 mg BIDWMEALS PO Last administered on 11/03/16 08 :41; Start 10/29/16 at 08:00 Nystatin (Nystop) 1 willa BID TP Last administered on 11/03/16 08:43; Start at 21:00 Fluconazole/ Sodium Chloride 100 ml @ 100 mls/hr Q24H IV ; Start 10/28/16 at 20 :30; Status Cancel Fluconazole (Diflucan) 200 mg QHS PO ; Start 10/29/16 at 21:00; Stop 10/29/16 at 21:00; Status DC Fluconazole/ Sodium Chloride 100 ml @ 100 mls/hr Q24H IV Last administered on 10/28/16 22:23; Start 10/28/16 at 23:00; Stop 10/29/16 at 09:41; Status DC Micafungin Sodium 100 mg/Dextrose 100 ml @ 100 mls/hr Q24H IV Last administered on 11/03/16 08:44; Start 10/29/16 at 10:00; Stop 11/03/16 at 09:15 ; Status DC Linezolid (Zyvox) 600 mg BID PO Last administered on 11/03/16 08:43; Start at 10:00; Stop 11/03/16 at 09:15; Status DC Piperacillin Sod/ Tazobactam Sod 3.375 gm/Sodium Chloride 50 ml @ 100 mls/hr Q6HRS IV Last administered on 10/31/16 06:00; Start 10/29/16 at 10:00; Stop at 08:50; Status DC Amoxicillin/ Clavulanate Potassium (Augmentin 875/ 125mg) 1 tab BID PO Last administered on 11/03/16 08:41; Start 10/31/16 at 09:00; Stop 11/03/16 at 09:15 ; Status DC Fluconazole (Diflucan) 200 mg DAILY PO Last administered on 11/03/16 11:28; Start 11/03/16 at 10:00 Active Scripts Active Hydrocodone-Apap 5-325 (Hydrocodone Bit/Acetaminophen) 1 Each Tablet 1 Tab PO PRN Q6HRS PRN Reported Zyrtec (Cetirizine Hcl) 10 Mg Tablet 1 Tab PO DAILY Vesicare (Solifenacin Succinate) 5 Mg Tablet 1 Tab PO DAILY Flonase Allergy Relief (Fluticasone Propionate) 9.9 Ml [place].susp 2 Sprays NS BID Bupropion Xl (Bupropion Hcl) 300 Mg Tab.er.24h 1 Tab PO DAILYWBKFT Melatonin 5 Mg Tablet 5 Mg PO PRN QHS PRN Gabapentin 100 Mg Capsule 200 Mg PO QHS Nitrostat (Nitroglycerin) 0.4 Mg Tab.subl 1 Tab SL UD Aspir 81 (Aspirin) 81 Mg Tablet.dr 1 Tab PO HS Glucosamine (Glucosamine Sulfate 2KCL) 1,000 Mg Tablet 1,000 Mg PO BID Docusate Sodium 100 Mg Capsule 1 Cap PO DAILY Vitamin C 500 Mg/15 Ml Liquid (Vit C/Ascorbate Ca/Ascorb Sod) 500 Mg/15 Ml Liquid 500 Mg PO BID Multi Vitamin Daily (Multivitamin) 1 Each Tablet 1 Each PO Caltrate 600 + D Tablet (Calcium Carbonate/Vitamin D3) 1 Each Tablet 1 Each PO BID Loratadine 10 Mg Tablet 1 Tab PO DAILY Hydrocodone-Apap 10-300 (Hydrocodone Bit/Acetaminophen) 1 Each Tablet 2 Tab PO PRN Q6HRS PRN Fluoxetine Hcl 20 Mg Capsule 1 Cap PO HS Ranitidine Hcl 150 Mg Capsule 1 Cap PO HS Pantoprazole Sodium 40 Mg Tablet.dr 20 Mg PO DAILY Lisinopril 2.5 Mg Tablet 1 Tab PO BID Finasteride 5 Mg Tablet 1 Tab PO DAILY Alfuzosin Hcl 10 Mg Tab.er.24h 1 Tab PO DAILY Crestor (Rosuvastatin Calcium) 5 Mg Tablet 5 Mg PO HS Clopidogrel (Clopidogrel Bisulfate) 75 Mg Tablet 1 Tab PO DAILY Carvedilol 6.25 Mg Tablet 1 Tab PO BID Vitals/I & O Vital Sign - Last 24 Hours 11/02/16 11/02/16 11/02/16 11/02/16 13:00 17:35 19:00 21:00 Temp 97.5 97.7 97.5 97.7 Pulse 61 61 59 59 Resp 20 20 B/P (MAP) 134/84 (101) 134/84 116/81 (93) 116/81 Pulse Ox 94 95 O2 Delivery Room Air Room Air 11/02/16 11/02/16 11/03/16 11/03/16 21:00 23:00 03:00 07:15 Temp 98.1 97.7 96.4 98.1 97.7 96.4 Pulse 60 60 62 Resp 20 20 16 B/P (MAP) 125/83 (97) 117/88 (98) 125/89 (101) Pulse Ox 92 97 94 O2 Delivery Room Air Room Air Room Air Room Air 11/03/16 11/03/16 11/03/16 08:00 08:42 08:43 Pulse 64 64 B/P (MAP) 125/89 125/89 O2 Delivery Room Air Intake and Output 11/02/16 11/02/16 11/03/16 15:00 23:00 07:00 Intake Total 250 ml 950 ml Output Total 825 ml Balance 250 ml 125 ml SHAYAN DIAZ III DO November 03, 2016 12:29
== END 2016-11-03 12:15 | disposition home or self-care (01) | DRG 394 ==
LOC: ER 16:39 → 5 NORTH 19:22
PROVIDERS: ADMIT Internal Medicine; ATTEND Internal Medicine
DX: K94.03 Colostomy malfunction (principal); L03.314 Cellulitis of groin; E44.0 Moderate protein-calorie malnutrition; R65.10 Systemic inflammatory response syndrome (SIRS) of non-infectious origin without acute organ dysfunction; I42.9 Cardiomyopathy, unspecified; I50.22 Chronic systolic (congestive) heart failure; I13.0 Hypertensive heart and chronic kidney disease with heart failure and stage 1 through stage 4 chronic kidney disease, or unspecified chronic kidney disease; F03.90 Unspecified dementia, unspecified severity, without behavioral disturbance, psychotic disturbance, mood disturbance, and anxiety; F32.9 Major depressive disorder, single episode, unspecified; E78.5 Hyperlipidemia, unspecified; E78.00 Pure hypercholesterolemia, unspecified; E11.22 Type 2 diabetes mellitus with diabetic chronic kidney disease; K21.9 Gastro-esophageal reflux disease without esophagitis; N18.9 Chronic kidney disease, unspecified; N40.0 Benign prostatic hyperplasia without lower urinary tract symptoms; R29.6 Repeated falls; Z96.651 Presence of right artificial knee joint; B35.9 Dermatophytosis, unspecified; I25.10 Atherosclerotic heart disease of native coronary artery without angina pectoris; F41.9 Anxiety disorder, unspecified; G47.00 Insomnia, unspecified; M19.90 Unspecified osteoarthritis, unspecified site; R62.7 Adult failure to thrive; Z91.81 History of falling; Z88.2 Allergy status to sulfonamides; Z90.49 Acquired absence of other specified parts of digestive tract; Z93.3 Colostomy status; Z95.1 Presence of aortocoronary bypass graft; Z95.5 Presence of coronary angioplasty implant and graft; Z95.810 Presence of automatic (implantable) cardiac defibrillator; I25.2 Old myocardial infarction; Z88.1 Allergy status to other antibiotic agents; Z98.52 Vasectomy status; Z68.26 Body mass index [BMI] 26.0-26.9, adult; Y83.9 Surgical procedure, unspecified as the cause of abnormal reaction of the patient, or of later complication, without mention of misadventure at the time of the procedure
CPT/HCPCS: 36415; 51702; 80048; 80053; 82947; 85007; 85027; 85651; 87040; 87324; 87641; 96365; 96375; J1450; J1815; J2248; J2405; J2543; J3010; J3490; J7030; 97530; 97535; 99285-25

== ENCOUNTER 2017-08-06 18:33 | Emergency (ER) | payer MEDICARE ==
[2017-08-06 19:03] LABS: ADD MAN DIFF? NO
[2017-08-06 19:05] LABS: BASO # 0.1 x10^3/uL (0.0-0.2); BASO % 1 % (0-3); EOS # 0.1 x10^3/uL (0.0-0.7); EOS % 1 % (0-3); HEMATOCRIT 46.2 % (39.0-53.0); HEMOGLOBIN 15.3 g/dL (13.0-17.5); LYMPH # 1.7 x10^3/uL (1.0-4.8); LYMPH % 13 % (24-48); MEAN CORPUSCULAR HEMOGLOBIN 34 pg (25-35); MEAN CORPUSCULAR HGB CONC 33 g/dL (31-37); MEAN CORPUSCULAR VOLUME 101 fL (79-100); MONO # 1.4 x10^3/uL (0.0-1.1); MONO % 11 % (0-9); NEUT # 9.6 x10^3uL (1.8-7.7); NEUT % 74 % (31-73); PLATELET COUNT 257 x10^3/uL (140-400); RED BLOOD COUNT 4.56 x10^6/uL (4.30-5.70); RED CELL DISTRIBUTION WIDTH 14.5 % (11.5-14.5); WHITE BLOOD COUNT 12.9 x10^3/uL (4.0-11.0)
[2017-08-06 19:19] LABS: ANION GAP 8 (6-14); BLOOD UREA NITROGEN 25 mg/dL (8-26); BUN/CREATININE RATIO 18 (6-20); CALCIUM 10.2 mg/dL (8.5-10.1); CARBON DIOXIDE 30 mmol/L (21-32); CHLORIDE 108 mmol/L (98-107); CREATININE 1.4 mg/dL (0.7-1.3); GFR 48.2; GLUCOSE 94 mg/dL (70-99); POTASSIUM 4.7 mmol/L (3.5-5.1); SODIUM 146 mmol/L (136-145)
[2017-08-06 19:24] LABS: ALBUMIN 3.1 g/dL (3.4-5.0); ALBUMIN/GLOBULIN RATIO 0.7 (1.0-1.7); ALK PHOS 88 U/L (46-116); ALT (SGPT) 52 U/L (16-63); AST (SGOT) 48 U/L (15-37); TOTAL BILIRUBIN 0.6 mg/dL (0.2-1.0); TOTAL PROTEIN 7.7 g/dL (6.4-8.2)
[2017-08-06 19:31] LABS: TROPONINI < 0.017 ng/mL (0.000-0.055)
== END 2017-08-06 21:20 | disposition home or self-care (01) ==
LOC: ER 18:33
DX: S01.01XA Laceration without foreign body of scalp, initial encounter (principal); E78.00 Pure hypercholesterolemia, unspecified; F03.90 Unspecified dementia, unspecified severity, without behavioral disturbance, psychotic disturbance, mood disturbance, and anxiety; I25.10 Atherosclerotic heart disease of native coronary artery without angina pectoris; I25.2 Old myocardial infarction; F32.9 Major depressive disorder, single episode, unspecified; K21.9 Gastro-esophageal reflux disease without esophagitis; N40.0 Benign prostatic hyperplasia without lower urinary tract symptoms; Z95.5 Presence of coronary angioplasty implant and graft; Z95.0 Presence of cardiac pacemaker; Z86.79 Personal history of other diseases of the circulatory system; Z88.2 Allergy status to sulfonamides; Z88.1 Allergy status to other antibiotic agents; Z88.8 Allergy status to other drugs, medicaments and biological substances; W07.XXXA Fall from chair, initial encounter; Y93.89 Activity, other specified; Y99.8 Other external cause status; Y92.89 Other specified places as the place of occurrence of the external cause
CPT/HCPCS: 36415; 70450; 71045; 72125; 72170; 80053; 84484; 85025; 93005; 99285-25

== ENCOUNTER 2017-08-09 15:53 | Inpatient (IN) | payer MEDICARE ==
[2017-08-09 17:08] LABS: ADD MAN DIFF? NO
[2017-08-09 17:09] LABS: BASO % 0 % (0-3); EOS # 0.1 x10^3/uL (0.0-0.7); EOS % 1 % (0-3); HEMATOCRIT 47.1 % (39.0-53.0); HEMOGLOBIN 15.5 g/dL (13.0-17.5); LYMPH # 1.7 x10^3/uL (1.0-4.8); LYMPH % 16 % (24-48); MEAN CORPUSCULAR HEMOGLOBIN 33 pg (25-35); MEAN CORPUSCULAR HGB CONC 33 g/dL (31-37); MEAN CORPUSCULAR VOLUME 101 fL (79-100); MONO # 1.6 x10^3/uL (0.0-1.1); MONO % 15 % (0-9); NEUT # 7.2 x10^3uL (1.8-7.7); NEUT % 68 % (31-73); PLATELET COUNT 248 x10^3/uL (140-400); RED BLOOD COUNT 4.64 x10^6/uL (4.30-5.70); RED CELL DISTRIBUTION WIDTH 14.5 % (11.5-14.5); WHITE BLOOD COUNT 10.6 x10^3/uL (4.0-11.0)
[2017-08-09 17:13] LABS: BILIRUBIN,URINE NEGATIVE (NEG); CLARITY,URINE CLEAR; GLUCOSE,URINE NEGATIVE (NEG); NITRITE,URINE NEGATIVE (NEG); PH,URINE 5.5; PROTEIN,URINE NEGATIVE (NEG-TRACE); UROBILINOGEN,URINE 0.2 mg/dL (0.2 mg/dL)
[2017-08-09 17:18] LABS: INR 1.3 (0.8-1.1)
[2017-08-09 17:19] LABS: PARTIAL THROMBOPLASTIN TIME 26 SEC (24-38)
[2017-08-09 17:27] LABS: COLOR,URINE DK YELLOW
[2017-08-09 17:29] LABS: RBC,URINE >40 /HPF (0-2)
[2017-08-09 17:30] LABS: BACTERIA,URINE 0 /HPF (0-FEW); HYALINE CASTS, URINE MODERATE /HPF; WBC,URINE RARE /HPF (0-4)
[2017-08-09 17:32] LABS: ANION GAP 9 (6-14); BLOOD UREA NITROGEN 39 mg/dL (8-26); BUN/CREATININE RATIO 23 (6-20); CALCIUM 10.1 mg/dL (8.5-10.1); CARBON DIOXIDE 29 mmol/L (21-32); CHLORIDE 107 mmol/L (98-107); CREATININE 1.7 mg/dL (0.7-1.3); GFR 38.5; GLUCOSE 101 mg/dL (70-99); POTASSIUM 4.2 mmol/L (3.5-5.1); SODIUM 145 mmol/L (136-145)
[2017-08-09 17:38] LABS: ALBUMIN 3.1 g/dL (3.4-5.0); ALBUMIN/GLOBULIN RATIO 0.7 (1.0-1.7); ALK PHOS 86 U/L (46-116); ALT (SGPT) 49 U/L (16-63); AST (SGOT) 41 U/L (15-37); TOTAL BILIRUBIN 0.6 mg/dL (0.2-1.0); TOTAL PROTEIN 7.7 g/dL (6.4-8.2)
[2017-08-09 17:43] LABS: TROPONINI < 0.017 ng/mL (0.000-0.055)
[2017-08-09 17:44] LABS: NT-PRO BNP 1211 pg/mL (0-449)
[2017-08-09] MEDS ORDERED: ACETAMINOPHEN 325 MG TABLET. PO (19:45)
[2017-08-09] MEDS ORDERED: ONDANSETRON PF 4 MG/2 ML VIAL. IV (19:45)
[2017-08-10] MEDS: IV 1/2 NORMAL SALINE 1,000 ML IV (12:00)
[2017-08-10] MEDS: ASPIRIN 300 MG SUPP.RECT PR ×2 (13:30→15:07)
[2017-08-10 14:25] LABS: CREATINE KINASE 224 U/L (39-308)
[2017-08-10 14:25] LABS: CHOLESTEROL 134 mg/dL (0-200); CHOLESTEROL/HDL RATIO 4.1; HDLC 33 mg/dL (40-60); LDLC 85 mg/dL (0-100); NON-HDL CHOLESTEROL 101 mg/dL (0-129); TRIGLYCERIDES 82 mg/dL (0-150); VLDLC 16 mg/dL (0-40)
[2017-08-10 14:34] LABS: THYROID STIM HORMONE (TSH) 0.758 uIU/mL (0.358-3.74)
[2017-08-10] MEDS: AMINO AC 3%/ELECTROLYTE/GLYCER 1,000 ML IV (15:07)
[2017-08-10] MEDS: METOPROLOL TARTRATE 5 MG/5 ML VIAL. IVP ×2 (15:07→18:27)
[2017-08-10 17:19] LABS: MRSA BY PCR Negative (Negative)
[2017-08-11] MEDS: METOPROLOL TARTRATE 5 MG/5 ML VIAL. IVP ×3 (00:55→12:00)
[2017-08-11] MEDS: MORPHINE SULFATE 4 MG/ML DISP.SYRIN. IV ×2 (02:01→06:09)
[2017-08-11 04:36] LABS: ADD MAN DIFF? NO
[2017-08-11 04:45] LABS: BASO % 0 % (0-3); EOS # 0.3 x10^3/uL (0.0-0.7); EOS % 2 % (0-3); HEMATOCRIT 46.2 % (39.0-53.0); HEMOGLOBIN 15.2 g/dL (13.0-17.5); LYMPH # 1.7 x10^3/uL (1.0-4.8); LYMPH % 13 % (24-48); MEAN CORPUSCULAR HEMOGLOBIN 34 pg (25-35); MEAN CORPUSCULAR HGB CONC 33 g/dL (31-37); MEAN CORPUSCULAR VOLUME 102 fL (79-100); MONO # 1.7 x10^3/uL (0.0-1.1); MONO % 13 % (0-9); NEUT # 9.3 x10^3uL (1.8-7.7); NEUT % 71 % (31-73); PLATELET COUNT 232 x10^3/uL (140-400); RED BLOOD COUNT 4.55 x10^6/uL (4.30-5.70); RED CELL DISTRIBUTION WIDTH 14.4 % (11.5-14.5)
[2017-08-11 05:25] LABS: ANION GAP 8 (6-14); BLOOD UREA NITROGEN 24 mg/dL (8-26); CALCIUM 9.3 mg/dL (8.5-10.1); CARBON DIOXIDE 30 mmol/L (21-32); CHLORIDE 110 mmol/L (98-107); CREATINE KINASE 455 U/L (39-308); CREATININE 1.1 mg/dL (0.7-1.3); GFR 63.6; GLUCOSE 70 mg/dL (70-99); POTASSIUM 4.1 mmol/L (3.5-5.1); SODIUM 148 mmol/L (136-145)
[2017-08-11] MEDS: AMINO AC 3%/ELECTROLYTE/GLYCER 1,000 ML IV (06:09)
[2017-08-11] MEDS: ASPIRIN 300 MG SUPP.RECT PR (09:00)
== END 2017-08-11 17:59 | disposition home or self-care (01) | DRG 682 ==
LOC: ER 15:53 → 4 NORTH 18:41
DX: N17.9 Acute kidney failure, unspecified (principal); G93.40 Encephalopathy, unspecified; E87.0 Hyperosmolality and hypernatremia; E11.22 Type 2 diabetes mellitus with diabetic chronic kidney disease; I71.2 Thoracic aortic aneurysm, without rupture; S00.83XA Contusion of other part of head, initial encounter; K51.90 Ulcerative colitis, unspecified, without complications; I13.0 Hypertensive heart and chronic kidney disease with heart failure and stage 1 through stage 4 chronic kidney disease, or unspecified chronic kidney disease; I50.9 Heart failure, unspecified; W05.0XXA Fall from non-moving wheelchair, initial encounter; Z51.5 Encounter for palliative care; Z66 Do not resuscitate; E86.0 Dehydration; E78.00 Pure hypercholesterolemia, unspecified; E78.5 Hyperlipidemia, unspecified; F03.90 Unspecified dementia, unspecified severity, without behavioral disturbance, psychotic disturbance, mood disturbance, and anxiety; I25.10 Atherosclerotic heart disease of native coronary artery without angina pectoris; K21.9 Gastro-esophageal reflux disease without esophagitis; M19.90 Unspecified osteoarthritis, unspecified site; M25.78 Osteophyte, vertebrae; M43.12 Spondylolisthesis, cervical region; M81.0 Age-related osteoporosis without current pathological fracture; N18.9 Chronic kidney disease, unspecified; Z96.651 Presence of right artificial knee joint; F32.9 Major depressive disorder, single episode, unspecified; F41.9 Anxiety disorder, unspecified; N40.0 Benign prostatic hyperplasia without lower urinary tract symptoms; Z82.49 Family history of ischemic heart disease and other diseases of the circulatory system; Z86.73 Personal history of transient ischemic attack (TIA), and cerebral infarction without residual deficits; Z87.891 Personal history of nicotine dependence; Z90.49 Acquired absence of other specified parts of digestive tract; Z91.81 History of falling; I25.2 Old myocardial infarction; Z93.3 Colostomy status; Z95.5 Presence of coronary angioplasty implant and graft; Z95.810 Presence of automatic (implantable) cardiac defibrillator; Y93.89 Activity, other specified; Y92.128 Other place in nursing home as the place of occurrence of the external cause; Y99.8 Other external cause status; Z88.1 Allergy status to other antibiotic agents; Z88.2 Allergy status to sulfonamides; Z88.8 Allergy status to other drugs, medicaments and biological substances
CPT/HCPCS: 36415; 70450; 71045; 72125; 72170; 80048; 80053; 80061; 81001; 82550; 83880; 84443; 84484; 85025; 85610; 85730; 87641; 92610-GN; 93005; 93306; 97162-GP; J2060; J2270; J3490